=== PATIENT | male | born 1955 | race Caucasian/White ===

== ENCOUNTER 2017-11-26 09:57 | Emergency (ER) | payer OTHER ==
--- OUTSIDE RECORDS SUMMARY | 2017-11-26 10:00 | XMS REPORT ---
:1955 Author Organization [facility] Address [address] [place] [address] Dr. Massey. [address] [place] [id number] Care Team Providers Name Role Phone REBEKAH MADDOX Unavailable Unavailable Problems This patient has no known problems. Allergies, Adverse Reactions, Alerts This patient has no known allergies or adverse reactions. Medications This patient has no known medications. Results Test Description Test Time Test Comments Text Results Atomic Results Result Comments MR, MRA, BRAIN, 2017-05-28 Reason for FINAL REPORT PATIENT ID: WITHOUT CONTRAST 12:18:00 exam:->StrokeWhat is the [id number] MRA Head patient's sedation CLINICAL HISTORY: Stroke requirement?->No Sedation TECHNIQUE: MRA of the head utilizing 3-D gtud-og-foraed technique, with 3-D reconstructions. COMPARISON: None FINDINGS: There is no evidence of intracranial aneurysm, focal stenosis, or major branch vessel occlusion. There are bilateral posterior communicating arteries. IMPRESSION: No evidence for a major modoc of Briones proximal branch vessel occlusion. MRA Neck CLINICAL HISTORY: Stroke TECHNIQUE: MRA of the neck utilizing 2-D and 3-D swiw-mq-rkvrfv technique, with 3-D reconstructions. COMPARISON: None FINDINGS: The carotid arteries in the neck are patent including their bifurcations. There is antegrade flow in the vertebral arteries in the neck. IMPRESSION: No evidence of hemodynamically significant stenosis in the cervical carotid or vertebral arteries by NASCET criteria. Signed: America King MDReport Verified Date/Time: 05/28/2017 12:18:08 Reading Location: [facility] Neuro Reading Room , MRA, NECK, 2017-05-28 FINAL REPORT PATIENT ID: WITHOUT IV 12:18:00 [id number] MRA Head CONTRAST CLINICAL HISTORY: Stroke TECHNIQUE: MRA of the head utilizing 3-D ohvx-mf-revfeg technique, with 3-D reconstructions. COMPARISON: None FINDINGS: There is no evidence of intracranial aneurysm, focal stenosis, or major branch vessel occlusion. There are bilateral posterior communicating arteries. IMPRESSION: No evidence for a major modoc of Briones proximal branch vessel occlusion. MRA Neck CLINICAL HISTORY: Stroke TECHNIQUE: MRA of the neck utilizing 2-D and 3-D dqzy-jx-urchfh technique, with 3-D reconstructions. COMPARISON: None FINDINGS: The carotid arteries in the neck are patent including their bifurcations. There is antegrade flow in the vertebral arteries in the neck. IMPRESSION: No evidence of hemodynamically significant stenosis in the cervical carotid or vertebral arteries by NASCET criteria. Signed: America King Verified Date/Time: 05/28/2017 12:18:08 Reading Location: [address] Neuro Reading Room , BRAIN, 2017-05-28 Reason for FINAL REPORT PATIENT ID: WITHOUT CONTRAST 11:48:00 exam:->Strokepost-tpa [id number] MRI Brain scanWhat is the patient's without contrast sedation requirement?->No Clinical History: Stroke Sedation Technique: MRI of the brain utilizing axial T2, FLAIR, GRE, DWI; sagittal and coronal T1-weighted images. Comparisons: CT 05/28/2017 Findings: There is no evidence of acute infarct or hemorrhage. There are a few scattered nonspecific foci of FLAIR signal abnormality in the subcortical and periventricular white matter. There is mild generalized sulcal prominence without hydrocephalus, midline shift, or apparent mass effect. There is a tubular branching structure extending from the left tentorium into the left cerebellum which is incompletely characterized on this noncontrast exam but is suspicious for a developmental venous anomaly. There are no extra-axial fluid collections. The craniocervical junction is preserved. The major intracranial flow-voids appear patent. IMPRESSION: No evidence of acute infarct, hemorrhage, or hydrocephalus. 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 This may be confirmed with gadolinium-enhanced imaging if clinically warranted. Signed: America King Verified Date/Time: 05/28/2017 11:48:29 Reading Location: [address] Neuro Reading Room 2017-05-28 09:59:00 Test Item Value Reference Range Comments RPR SCREEN (BEAKER) (test fzni=210) Nonreactive Nonreactive CT, BRAIN, WITHOUT [id number] 07:58:00FINAL REPORT CT Head without contrast CLINICAL HISTORY: Stroke TECHNIQUE: Contiguous axial images through the head without contrast. This exam was performed according to the departmental dose optimization program which includes automated exposure control, adjustment of the mA and/or kV according to the patient size, and/or use of an iterative reconstruction technique. COMPARISON: None FINDINGS: There is no CT evidence of acute infarct or intracranial hemorrhage. There is mild periventricular and subcortical white matter hypodensity which is nonspecific but compatible with chronic microvascular ischemic change. There are atherosclerotic calcifications of the intracranial circulation. There is mild generalized parenchymal volume loss without hydrocephalus, midline shift, or apparent mass effect. There are no extra-axial fluid collections. The skull is intact. The visualized paranasal sinuses are well-aerated. IMPRESSION: No CT evidence of acute infarct, hemorrhage, or hydrocephalus. Signed: America King MDReport Verified Date/Time : 05/28/2017 07:58:27 Reading Location: [address] Neuro Reading Room [id number] 05:58:00 Test Item Value Reference Range Comments PHOSPHORUS (BEAKER) (test htll=593) 3.0 mg/dL 2.3-4.7 [id number] 05:58:00 Test Item Value Reference Range Comments MAGNESIUM (BEAKER) (test jcoe=889) 2.1 mg/dL 1.6-2.6 FastingBASIC METABOLIC [id number] 05:58:00 Test Item Value Reference Range Comments SODIUM (BEAKER) (test 141 meq/L 136-145 owru=075) POTASSIUM (BEAKER) (test 4.0 meq/L 3.5-5.1 lpby=494) CHLORIDE (BEAKER) (test 108 meq/L 98-107 mprw=322) CO2 (BEAKER) (test 24 meq/L 22-29 xorh=613) BLOOD UREA NITROGEN 17 mg/dL 7-21 (BEAKER) (test fweq=048) CREATININE (BEAKER) (test 0.92 mg/dL 0.57-1.25 uzie=907) GLUCOSE RANDOM (BEAKER) 128 mg/dL 70-105 (test goal=557) CALCIUM (BEAKER) (test 9.6 mg/dL 8.4-10.2 kgtt=142) EGFR (BEAKER) (test 84 mL/min/1.73 sq m ESTIMATED GFR IS NOT jdsl=5040) ACCURATE CREATININE CLEARANCE IN PREDICTING GLOMERULAR FILTRATION RATE. ESTIMATED GFR IS NOT APPLICABLE FOR DIALYSIS PATIENTS. FastingLIPID [id number] 05:58:00 Test Item Value Reference Range Comments TRIGLYCERIDES (BEAKER) (test szck=930) 88 mg/dL CHOLESTEROL (BEAKER) (test vdhj=334) 169 mg/dL HDL CHOLESTEROL (BEAKER) (test zhhh=191) 37 mg/dL LDL CHOLESTEROL CALCULATED (BEAKER) (test 114 mg/dL lwko=264) Triglyceride Reference Range: Low Risk <150 Borderline 150- 199 High Risk 200-499 Very High Risk >=500Cholesterol Reference Range: Low Risk <200 Borderline 200-239 High Risk > 240HDL Cholesterol Reference Range: Low Risk >=60 High Risk <40LDL Cholesterol Reference Range: Optimal <100 Near Optimal 100-129 Borderline 130-159 High 160-189 Very High >=190 FastingCBC W/PLT COUNT & AUTO [id number] 05:32:00 Test Item Value Reference Range Comments WHITE BLOOD CELL COUNT (BEAKER) (test emmt=360) 6.3 K/ L 3.5-10.5 RED BLOOD CELL COUNT (BEAKER) (test wowq=461) 4.70 M/ L 4.63-6.08 HEMOGLOBIN (BEAKER) (test ndle=542) 14.9 GM/DL 13.7-17.5 HEMATOCRIT (BEAKER) (test cwnm=612) 43.0 % 40.1-51.0 MEAN CORPUSCULAR VOLUME (BEAKER) (test lmnp=486) 91.5 fL 79.0-92.2 MEAN CORPUSCULAR HEMOGLOBIN (BEAKER) (test 31.7 pg 25.7-32.2 ywhu=671) MEAN CORPUSCULAR HEMOGLOBIN CONC (BEAKER) (test 34.7 GM/DL 32.3-36.5 mwft=518) RED CELL DISTRIBUTION WIDTH (BEAKER) (test 12.2 % 11.6-14.4 ujfk=115) PLATELET COUNT (BEAKER) (test pizg=078) 182 K/CU MM 150-450 MEAN PLATELET VOLUME (BEAKER) (test wodm=624) 9.8 fL 9.4-12.4 NUCLEATED RED BLOOD CELLS (BEAKER) (test 0 /100 WBC 0-0 hxog=060) NEUTROPHILS RELATIVE PERCENT (BEAKER) (test 71 % nbrz=186) LYMPHOCYTES RELATIVE PERCENT (BEAKER) (test 15 % rtfr=328) MONOCYTES RELATIVE PERCENT (BEAKER) (test 10 % fwlz=134) EOSINOPHILS RELATIVE PERCENT (BEAKER) (test 3 % btfg=528) BASOPHILS RELATIVE PERCENT (BEAKER) (test 1 % klrm=868) NEUTROPHILS ABSOLUTE COUNT (BEAKER) (test 4.50 K/ L 1.78-5.38 umrw=982) LYMPHOCYTES ABSOLUTE COUNT (BEAKER) (test 0.92 K/ L 1.32-3.57 yzar=929) MONOCYTES ABSOLUTE COUNT (BEAKER) (test 0.63 K/ L 0.30-0.82 pgwy=839) EOSINOPHILS ABSOLUTE COUNT (BEAKER) (test 0.18 K/ L 0.04-0.54 qstg=646) BASOPHILS ABSOLUTE COUNT (BEAKER) (test 0.04 K/ L 0.01-0.08 euov=614) IMMATURE GRANULOCYTES-RELATIVE PERCENT (BEAKER) 1 % 0-1 (test nham=8743) HEMOGLOBIN [id number] 13:39:00 Test Item Value Reference Range Comments HEMOGLOBIN A1C (BEAKER) (test xlaq=133) 5.4 % 4.3-6.1 TSH/FREE T4 IF [id number] 09:59:00 Test Item Value Reference Range Comments THYROID STIMULATING HORMONE (BEAKER) (test 0.97 uIU/mL 0.35-4.94 ygmq=053) VITAMIN B12 AND [id number] 09:59:00 Test Item Value Reference Range Comments VITAMIN B12 (BEAKER) (test vszp=416) 516 pg/mL 213-816 FOLATE (BEAKER) (test jcgq=853) 15.4 ng/mL >=7.0 TROPONIN [id number] 09:34:00 Test Item Value Reference Range Comments TROPONIN I (BEAKER) (test sllj=047) 0.01 ng/mL 0.00-0.03 Troponin I (TnI) levels must be interpreted in the context of the presenting symptoms and the clinical findings. Elevated TnI levels indicate myocardial damage, but are not specific for ischemic heart disease. Elevated TnI levels are seen in patients with other cardiac conditions (including myocarditis and congestive heart failure), and slight TnI elevations occur in patients with other conditions, including sepsis, renal failure, acidosis, acute neurological disease, and persistent tachyarrhythmia.BASIC METABOLIC [id number] 09:29:00 Test Item Value Reference Range Comments SODIUM (BEAKER) (test 140 meq/L 136-145 jvay=152) POTASSIUM (BEAKER) (test 4.2 meq/L 3.5-5.1 Specimen slightly mspd=268) hemolyzed CHLORIDE (BEAKER) (test 110 meq/L 98-107 uqtb=352) CO2 (BEAKER) (test 24 meq/L 22-29 ltpo=471) BLOOD UREA NITROGEN 18 mg/dL 7-21 (BEAKER) (test tict=285) CREATININE (BEAKER) (test 0.79 mg/dL 0.57-1.25 Specimen slightly oart=601) hemolyzed GLUCOSE RANDOM (BEAKER) 118 mg/dL 70-105 (test wtyv=619) CALCIUM (BEAKER) (test 8.8 mg/dL 8.4-10.2 hhik=583) EGFR (BEAKER) (test 100 mL/min/1.73 sq m ESTIMATED GFR IS NOT eqch=0345) ACCURATE CREATININE CLEARANCE IN PREDICTING GLOMERULAR FILTRATION RATE. ESTIMATED GFR IS NOT APPLICABLE FOR DIALYSIS PATIENTS. LIPID [id number] 09:29:00 Test Item Value Reference Range Comments TRIGLYCERIDES (BEAKER) (test 63 mg/dL Specimen slightly hemolyzed udwx=526) CHOLESTEROL (BEAKER) (test 151 mg/dL Specimen slightly hemolyzed jzjk=273) HDL CHOLESTEROL (BEAKER) (test 34 mg/dL rser=007) LDL CHOLESTEROL CALCULATED 104 mg/dL (BEAKER) (test umly=296) Triglyceride Reference Range: Low Risk <150 Borderline 150- 199 High Risk 200-499 Very High Risk >=500Cholesterol Reference Range: Low Risk <200 Borderline 200-239 High Risk > 240HDL Cholesterol Reference Range: Low Risk >=60 High Risk <40LDL Cholesterol Reference Range: Optimal <100 Near Optimal 100-129 Borderline 130-159 High 160-189 Very High >=190HEPATIC FUNCTION [id number] 09:29:00 Test Item Value Reference Range Comments TOTAL PROTEIN (BEAKER) (test 6.4 gm/dL 6.0-8.3 Specimen slightly hemolyzed kxrb=263) ALBUMIN (BEAKER) (test 4.0 g/dL 3.5-5.0 Specimen slightly hemolyzed ortn=9324) BILIRUBIN TOTAL (BEAKER) (test 0.5 mg/dL 0.2-1.2 Specimen slightly hemolyzed xoai=917) BILIRUBIN DIRECT (BEAKER) (test 0.2 mg/dL 0.1-0.5 Specimen slightly hemolyzed tkfh=454) ALKALINE PHOSPHATASE (BEAKER) 48 U/L 40-150 (test ioro=428) AST (SGOT) (BEAKER) (test 27 U/L 5-34 Specimen slightly hemolyzed ogxb=638) ALT (SGPT) (BEAKER) (test 20 U/L 6-55 Specimen slightly hemolyzed jazi=301) CBC W/PLT COUNT & AUTO [id number] 09:05:00 Test Item Value Reference Range Comments WHITE BLOOD CELL COUNT (BEAKER) (test gcua=741) 4.2 K/ L 3.5-10.5 RED BLOOD CELL COUNT (BEAKER) (test cjkc=033) 4.44 M/ L 4.63-6.08 HEMOGLOBIN (BEAKER) (test klob=270) 13.9 GM/DL 13.7-17.5 HEMATOCRIT (BEAKER) (test yxbu=674) 41.1 % 40.1-51.0 MEAN CORPUSCULAR VOLUME (BEAKER) (test qthb=570) 92.6 fL 79.0-92.2 MEAN CORPUSCULAR HEMOGLOBIN (BEAKER) (test 31.3 pg 25.7-32.2 tdze=232) MEAN CORPUSCULAR HEMOGLOBIN CONC (BEAKER) (test 33.8 GM/DL 32.3-36.5 getd=281) RED CELL DISTRIBUTION WIDTH (BEAKER) (test 12.0 % 11.6-14.4 sfob=992) PLATELET COUNT (BEAKER) (test zkgf=997) 168 K/CU MM 150-450 MEAN PLATELET VOLUME (BEAKER) (test afue=519) 10.0 fL 9.4-12.4 NUCLEATED RED BLOOD CELLS (BEAKER) (test 0 /100 WBC 0-0 omke=014) NEUTROPHILS RELATIVE PERCENT (BEAKER) (test 71 % tyqu=047) LYMPHOCYTES RELATIVE PERCENT (BEAKER) (test 17 % pvbw=474) MONOCYTES RELATIVE PERCENT (BEAKER) (test 9 % sxqo=286) EOSINOPHILS RELATIVE PERCENT (BEAKER) (test 2 % bzxx=676) BASOPHILS RELATIVE PERCENT (BEAKER) (test 1 % mjxu=168) NEUTROPHILS ABSOLUTE COUNT (BEAKER) (test 3.01 K/ L 1.78-5.38 yzsl=089) LYMPHOCYTES ABSOLUTE COUNT (BEAKER) (test 0.72 K/ L 1.32-3.57 lfhg=053) MONOCYTES ABSOLUTE COUNT (BEAKER) (test 0.40 K/ L 0.30-0.82 rwxd=320) EOSINOPHILS ABSOLUTE COUNT (BEAKER) (test 0.07 K/ L 0.04-0.54 zchm=906) BASOPHILS ABSOLUTE COUNT (BEAKER) (test 0.03 K/ L 0.01-0.08 mavc=808) IMMATURE GRANULOCYTES-RELATIVE PERCENT (BEAKER) 0 % 0-1 (test jqry=8131)
--- OUTSIDE RECORDS SUMMARY | 2017-11-26 10:00 | XMS REPORT | Clinical Summary ---
:[address] [facility] Address [address] [place] [address] Phone Care Team Providers Name Role Phone Unavailable Primary Care Provider Unavailable Allergies Active Allergy Reactions Severity Noted Date Comments Lisinopril Other (See Comments) 05/27/2017 Current Medications Prescription Sig. Disp. Refills Start Date End Date Status metoprolol (TOPROL-XL) Take 100 mg by Active 100 MG 24 hr tablet mouth daily. valsartan (DIOVAN) 160 Take 80 mg by Active MG tablet mouth daily . fenofibric acid, Take 135 mg by Active choline, 135 mg capsule mouth daily. cholecalciferol, Take by mouth. Active vitamin D3, 2,000 unit Cap aspirin 81 MG chewable Take 1 tablet (81 90 tablet 1 05/29/2017 Active tablet mg total) by mouth daily. atorvastatin (LIPITOR) Take 1 tablet (40 90 tablet 1 05/28/2017 Active 40 MG tablet mg total) by mouth nightly. Active Problems Problem Noted Date Acute ischemic stroke (HCC) 05/27/2017 Stroke (HCC) 05/27/2017 Encounters Date Type Specialty Care Team Description 05/27/2017 - Hospital Encounter Intensive Care [facility] Andres Cerebrovascular 05/28/2017 MD Gumaro accident (CVA), unspecified mechanism (HCC) 05/27/2017 Emergency Emergency Medicine Hamilton Andres MD after 11/25/2016 Social History Tobacco Use Types Packs/Day Years Used Date Never Smoker Alcohol Use Drinks/Week oz/Week Comments No Sex Assigned at Date Recorded Not on file Last Filed Vital Signs Vital Sign Reading Time Taken Blood Pressure 148/76 05/28/2017 11:00 AM CDT Pulse 65 05/28/2017 11:00 AM CDT Temperature 36.7 C (98 F) 05/28/2017 11:00 AM CDT Respiratory Rate 18 05/28/2017 11:00 AM CDT Oxygen Saturation 97% 05/28/2017 11:00 AM CDT Inhaled Oxygen Concentration - - Weight 115.4 kg (254 lb 6.6 oz) 05/27/2017 7:15 AM CDT Height 198.1 cm (6' 6") 05/27/2017 7:15 AM CDT Body Mass Index 29.4 05/27/2017 7:15 AM CDT Plan of Treatment Not on file Results TRANSFUSION SERVICE REPORT - SCAN (05/28/2017 5:43 PM)MR brain without IV contrast (05/28/2017 12:09 PM) Specimen Performing Laboratory [facility] Narrative FINAL REPORT MRI Brain without contrast Clinical History: Stroke Technique: MRI of the brain utilizing axial [...] imaging if clinically warranted. Signed: America King MD Report Verified Date/Time:05/28/2017 11:48:29 Reading Location: [facility] C013V Neuro Reading Room Procedure Note Interface, External Ris In - 05/28/2017 12:09 PM CDT FINAL REPORT MRI Brain without contrast Clinical History: Stroke Technique: MRI of the brain utilizing axial [...] imaging if clinically warranted. Signed: America King MD Report Verified Date/Time: 05/28/2017 11:48:29 Reading Location: [address] Neuro Reading Room MRA neck without contrast (05/28/2017 12:09 PM) Specimen Performing Laboratory [facility] Narrative FINAL REPORT MRA Head CLINICAL HISTORY: Stroke TECHNIQUE: MRA of the head utilizing 3-D dyle-wh-fsusxp technique, with 3-D reconstructions. COMPARISON: None FINDINGS: There is no evidence of intracranial aneurysm, focal stenosis, or major branch vessel occlusion. There are bilateral posterior communicating arteries. IMPRESSION: No evidence for a major ute of Briones proximal branch vessel occlusion. MRA Neck CLINICAL HISTORY: Stroke TECHNIQUE: MRA of the neck utilizing 2-D and 3-D ddcn-gq-hbchmb technique, with 3-D reconstructions. COMPARISON: None FINDINGS: The carotid arteries in the neck are patent including their bifurcations. There is antegrade flow in the vertebral arteries in the neck. IMPRESSION: No evidence of hemodynamically significant stenosis in the cervical carotid or vertebral arteries by NASCET criteria. Signed: America King MD Report Verified Date/Time:05/28/2017 12:18:08 Reading Location: [address] Neuro Reading Room Procedure Note Interface, External Ris In - 05/28/2017 12:20 PM CDT FINAL REPORT MRA Head CLINICAL HISTORY: Stroke TECHNIQUE: MRA of the head utilizing 3-D vgsf-ew-ssgytl technique, with 3-D reconstructions. COMPARISON: None FINDINGS: There is no evidence of intracranial aneurysm, focal stenosis, or major branch vessel occlusion. There are bilateral posterior communicating arteries. IMPRESSION: No evidence for a major ute of Briones proximal branch vessel occlusion. MRA Neck CLINICAL HISTORY: Stroke TECHNIQUE: MRA of the neck utilizing 2-D and 3-D qnpl-zo-vytldo technique, with 3-D reconstructions. COMPARISON: None FINDINGS: The carotid arteries in the neck are patent including their bifurcations. There is antegrade flow in the vertebral arteries in the neck. IMPRESSION: No evidence of hemodynamically significant stenosis in the cervical carotid or vertebral arteries by NASCET criteria. Signed: America King MD Report Verified Date/Time: 05/28/2017 12:18:08 Reading Location: [facility] C013 Neuro Reading Room MRA head without contrast (05/28/2017 12:09 PM) Specimen Performing Laboratory [facility] Narrative FINAL REPORT MRA Head CLINICAL HISTORY: Stroke TECHNIQUE: MRA of the head utilizing 3-D hqnc-ov-dqreee technique, with 3-D reconstructions. COMPARISON: None FINDINGS: There is no evidence of intracranial aneurysm, focal stenosis, or major branch vessel occlusion. There are bilateral posterior communicating arteries. IMPRESSION: No evidence for a major ute of Briones proximal branch vessel occlusion. MRA Neck CLINICAL HISTORY: Stroke TECHNIQUE: MRA of the neck utilizing 2-D and 3-D mowj-yt-cgtckn technique, with 3-D reconstructions. COMPARISON: None FINDINGS: The carotid arteries in the neck are patent including their bifurcations. There is antegrade flow in the vertebral arteries in the neck. IMPRESSION: No evidence of hemodynamically significant stenosis in the cervical carotid or vertebral arteries by NASCET criteria. Signed: America King MD Report Verified Date/Time:05/28/2017 12:18:08 Reading Location: [facility] B1 C013V Neuro Reading Room Procedure Note Interface, External Ris In - 05/28/2017 12:20 PM CDT FINAL REPORT MRA Head CLINICAL HISTORY: Stroke TECHNIQUE: MRA of the head utilizing 3-D xfba-dy-ofwshh technique, with 3-D reconstructions. COMPARISON: None FINDINGS: There is no evidence of intracranial aneurysm, focal stenosis, or major branch vessel occlusion. There are bilateral posterior communicating arteries. IMPRESSION: No evidence for a major ute of Briones proximal branch vessel occlusion. MRA Neck CLINICAL HISTORY: Stroke TECHNIQUE: MRA of the neck utilizing 2-D and 3-D fyrg-wo-epxaal technique, with 3-D reconstructions. COMPARISON: None FINDINGS: The carotid arteries in the neck are patent including their bifurcations. There is antegrade flow in the vertebral arteries in the neck. IMPRESSION: No evidence of hemodynamically significant stenosis in the cervical carotid or vertebral arteries by NASCET criteria. Signed: America King MD Report Verified Date/Time: 05/28/2017 12:18:08 Reading Location: [address] Neuro Reading Room CARDIOGRAM REPORT - SCAN (05/28/2017 11:20 AM)CT brain without IV contrast ( 05/28/2017 7:44 AM) Specimen Performing Laboratory [facility] Narrative FINAL REPORT CT Head without contrast CLINICAL HISTORY: [...] infarct, hemorrhage, or hydrocephalus. Signed: America King MD Report Verified Date/Time:05/28/2017 07:58:27 Reading Location: [address] Neuro Reading Room Procedure Note Interface, External Ris In - 05/28/2017 8:00 AM CDT FINAL REPORT CT Head without contrast CLINICAL HISTORY: [...] infarct, hemorrhage, or hydrocephalus. Signed: America King MD Report Verified Date/Time: 05/28/2017 07:58:27 Reading Location: [facility] C013V Neuro Reading Room with platelet count + automated diff (05/28/2017 5:12 AM)Only the most recent of2 resultswithin the time period is included. Component Value Ref Range WBC 6.3 3.5 - 10.5 K/L RBC 4.70 4.63 - 6.08 M/L Hemoglobin 14.9 13.7 - 17.5 GM/DL Hematocrit 43.0 40.1 - 51.0 % MCV 91.5 79.0 - 92.2 fL MCH 31.7 25.7 - 32.2 pg MCHC 34.7 32.3 - 36.5 GM/DL RDW 12.2 11.6 - 14.4 % Platelets 182 150 - 450 K/CU MM MPV 9.8 9.4 - 12.4 fL nRBC 0 0 - 0 /100 WBC % Neutros 71 % % Lymphs 15 % % Monos 10 % % Eos 3 % % Baso 1 % # Neutros 4.50 1.78 - 5.38 K/L # Lymphs 0.92 (L) 1.32 - 3.57 K/L # Monos 0.63 0.30 - 0.82 K/L # Eos 0.18 0.04 - 0.54 K/L # Baso 0.04 0.01 - 0.08 K/L Immature Granulocytes-Relative 1 0 - 1 % Specimen Performing Laboratory Blood [address] [address] CBC with platelet count + automated diff (05/28/2017 5:12 AM)Only the most recent of2 resultswithin the time period is included. Specimen Performing Laboratory Blood Narrative The following orders were created for panel order CBC with platelet count + automated diff. Procedure Abnormality Status --------- ------ CBC with platelet count ...[[id number]]AbnormalFinal result Please view results for these tests on the individual orders. Phosphorus (05/28/2017 5:12 AM) Component Value Ref Range Phosphorus 3.0 2.3 - 4.7 mg/dL Specimen Performing Laboratory Blood [address] [address] Narrative Fasting Magnesium (05/28/2017 5:12 AM) Component Value Ref Range Magnesium 2.1 1.6 - 2.6 mg/dL Specimen Performing Laboratory Blood [address] [address] Narrative Fasting Fasting lipid panel (05/28/2017 5:12 AM)Only the most recent of2 resultswithin the time period is included. Component Value Ref Range Triglycerides 88 mg/dL Cholesterol 169 mg/dL HDL 37 mg/dL LDL Calculated 114 mg/dL Specimen Performing Laboratory [address] [address] Narrative Triglyceride Reference Range: Low Risk <150 [id number] High Risk 200-499 Very High Risk>=500 Cholesterol Reference Range: Low Risk <200 [id number] High Risk>240 HDL Cholesterol Reference Range: Low Risk >=60 High Risk <40 LDL Cholesterol Reference Range: Optimal<100 Near [id number] [id number] Ftyh011-527 Very High >=190 Fasting Basic Metabolic Panel (05/28/2017 5:12 AM)Only the most recent of2 resultswithin the time period is included. Component Value Ref Range Sodium 141 136 - 145 meq/L Potassium 4.0 3.5 - 5.1 meq/L Chloride 108 (H) 98 - 107 meq/L CO2 24 22 - 29 meq/L BUN 17 7 - 21 mg/dL Creatinine 0.92 0.57 - 1.25 mg/dL Glucose 128 (H) 70 - 105 mg/dL Calcium 9.6 8.4 - 10.2 mg/dL EGFR 84Comment: ESTIMATED GFR IS NOT ACCURATE mL/min/1.73 sq m CREATININE CLEARANCE IN PREDICTING GLOMERULAR FILTRATION RATE. ESTIMATED GFR IS NOT APPLICABLE FOR DIALYSIS PATIENTS. Specimen Performing Laboratory Blood [facility] [address] [address] Narrative Fasting 2D Echo W/Doppler(CW/PW/Color) with saline (05/27/2017 1:59 PM) Component Value Ref Range Ejection Fraction Specimen Performing Laboratory [facility] ECHO HEARTLAB MKCKESSON CPACS Narrative Transthoracic Echocardiography Report (TTE) Demographics Patient Name Ihsan SMITH of Study 05/27/2017 SHIRA [id number] GenderMale Visit Number [id number] Race Unknown [id number] Number [id number] Number Date of Birth1955 Referring Physician Mckenna Naik Age62 year(s) Pulmonary Fellow Cecilia Borden AnalystAlex ZadeInterpreting Brooks Soriano, Physician Procedure Type of Study TTE procedure:2DECHO W DOPPLER(CW/PW/COLOR) (Routine) Indications:Suspected cardiac source of emboli. Clinical History HTN STROKE HGB 13.9 HCT 41.1 % Height: 78 inches Weight: 115.21 kg (254 lbs) BSA: 2.5 m^2 BMI: 29.35 kg/m^2 HR: 55 bpm BP: 126/64 mmHg Summary Essentially normal exam. The left ventricle is chamber size (by vol index) is normal (male - LVED vol - 34-74ml/m2). Mild concentric LV hypertrophy. All of the LV segments contract normally . Global LV systolic function normal . Estimated LVEF by qualitative assessment is normal (55-60%) . Grade 1 diastolic dysfunction (impaired relaxation and low-normal LA pressure). Aortic root size (SInus of Valsalva diameter) is normal . The estimated RA pressure by IVC dynamics 0-5mmHg . A trace of tricuspid regurgitation. Unable to estimate peak systolic PA pressure; inadequate TR velocity signal. IV saline contrast injection was negative for a PFO (patent foramen ovale) at rest and post Valsalva . Previous Study No prior exam available for comparison. Signature Findings Left Ventricle The left ventricle is chamber size (by vol index) is normal (male - LVED vol - 34-74ml/m2). Mild concentric LV hypertrophy. All of the LV segments contract normally . Global LV systolic function normal . Estimated LVEF by qualitative assessment is normal (55-60%) . Grade 1 diastolic dysfunction (impaired relaxation and low- normal LA pressure). Left AtriumLA size is mildly enlarged . Right VentricleNormal right ventricle structure and function. Right Atrium Normal right atrium. Atrial SeptumIV saline contrast injection was negative for a PFO (patent foramen ovale) at rest and post Valsalva . Aortic Valve Mild AoV cusp thickening. Mild aortic regurgitation. Mitral Valve Mild mitral annular calcification. Tricuspid ValveA trace of tricuspid regurgitation. Unable to estimate peak systolic PA pressure; inadequate TR velocity signal. Pulmonic Valve Normal PV structure and function by limited views and Doppler. AortaAortic root size (SInus of Valsalva diameter) is normal . PericardiumNo evidence of pericardial effusion. IVC/SVC/PA/PV/PleuralThe estimated RA pressure by IVC dynamics 0-5mmHg . Chambers/Structures Left Atrium LA Dimension: 4.25 cmLA Area: 26.64 cm^2 LA Volume: 90.44 ml LA Vol. Index: 36 ml/m^2 Left Ventricle LVIDd: 4.92 cm LV Septum Diastolic: 1.29 cm LV PW Diastolic: 1.24 cm LVEDV Torres's:158.56 ml LVESV Torres's:66.25 ml LVEF Torres's: 58.2 %LVEDVI: 63 ml/m^2 LVESVI: 26 ml/m^2 LVOT Diameter: 2.07 cm Aorta Ao Root S of Deonna.: 3.78 cm Doppler/Quantitative Measurements LVOT Peak Velocity: 1.41 m/s Peak Gradient: 7.99 mmHg Mean Velocity: 0.76 m/s Mean Gradient: 2.92 mmHg LVOT Diameter: 2.07 cmLVOT VTI: 25.18 cm LVOT Area: 3.37 cm^2LVOT SV:84.7 ml LVOT CO: 4.66 l/min LVOT CI: 1.86 l/min/m^2 Procedure Note Interface, External Ris In - 05/28/2017 10:41 AM CDT Transthoracic Echocardiography Report (TTE) Demographics Patient Name RUSSELL SMITH Date of Study 05/27/2017 SHIRA Gender Male Visit Number [id number] Race Unknown Room Number [id number] Number Date of 1955 Referring Physician Mckenna Naik Age 62 year(s) Pulmonary Fellow Cecilia Borden Brick Handler Levi Jiménez Interpreting Brooks Soriano Physician Procedure Type of Study TTE procedure:2DECHO W DOPPLER(CW/PW/COLOR) (Routine) Indications:Suspected cardiac source of emboli. Clinical History HTN STROKE HGB 13.9 HCT 41.1 % Height: 78 inches Weight: 115.21 kg (254 lbs) BSA: 2.5 m^2 BMI: 29.35 kg/m^2 HR: 55 bpm BP: 126/64 mmHg Summary Essentially normal exam. The left ventricle is chamber size (by vol index) is normal (male - LVED vol - 34-74ml/m2). Mild concentric LV hypertrophy. All of the LV segments contract normally . Global LV systolic function normal . Estimated LVEF by qualitative assessment is normal (55-60%) . Grade 1 diastolic dysfunction (impaired relaxation and low-normal LA pressure). Aortic root size (SInus of Valsalva diameter) is normal . The estimated RA pressure by IVC dynamics 0-5mmHg . A trace of tricuspid regurgitation. Unable to estimate peak systolic PA pressure; inadequate TR velocity signal. IV saline contrast injection was negative for a PFO (patent foramen ovale) at rest and post Valsalva . Previous Study No prior exam available for comparison. Signature Findings Left Ventricle The left ventricle is chamber size (by vol index) is normal (male - LVED vol - 34-74ml/m2). Mild concentric LV hypertrophy. All of the LV segments contract normally . Global LV systolic function normal . Estimated LVEF by qualitative assessment is normal (55-60%) . Grade 1 diastolic dysfunction (impaired relaxation and low-normal LA pressure). Left Atrium LA size is mildly enlarged . Right Ventricle Normal right ventricle structure and function. Right Atrium Normal right atrium. Atrial Septum IV saline contrast injection was negative for a PFO (patent foramen ovale) at rest and post Valsalva . Aortic Valve Mild AoV cusp thickening. Mild aortic regurgitation. Mitral Valve Mild mitral annular calcification. Tricuspid Valve A trace of tricuspid regurgitation. Unable to estimate peak systolic PA pressure; inadequate TR velocity signal. Pulmonic Valve Normal PV structure and function by limited views and Doppler. Aorta Aortic root size (SInus of Valsalva diameter) is normal . Pericardium No evidence of pericardial effusion. IVC/SVC/PA/PV/Pleural The estimated RA pressure by IVC dynamics 0-5mmHg . Chambers/Structures Left Atrium LA Dimension: 4.25 cm LA Area: 26.64 cm^2 LA Volume: 90.44 ml LA Vol. Index: 36 ml/m^2 Left Ventricle LVIDd: 4.92 cm LV Septum Diastolic: 1.29 cm LV PW Diastolic: 1.24 cm LVEDV Torres's:158.56 ml LVESV Torres's:66.25 ml LVEF Torres's: 58.2 % LVEDVI: 63 ml/m^2 LVESVI: 26 ml/m^2 LVOT Diameter: 2.07 cm Aorta Ao Root S of Deonna.: 3.78 cm Doppler/Quantitative Measurements LVOT Peak Velocity: 1.41 m/s Peak Gradient: 7.99 mmHg Mean Velocity: 0.76 m/s Mean Gradient: 2.92 mmHg LVOT Diameter: 2.07 cm LVOT VTI: 25.18 cm LVOT Area: 3.37 cm^2 LVOT SV:84.7 ml LVOT CO: 4.66 l/min LVOT CI: 1.86 l/min/m^2 Type and screen, automated (05/27/2017 8:53 AM) Component Value Ref Range ABO/RH AUTOMATED ([place]) B POSITIVE Ab Scrn NEGATIVE Specimen Performing Laboratory Blood [address] [address] Vitamin B12 and Folate (05/27/2017 8:53 AM) Component Value Ref Range Vitamin B12 516 213 - 816 pg/mL Folate 15.4 >=7.0 ng/mL Specimen Performing Laboratory [address] [address] TSH/Free T4 If Indicated (05/27/2017 8:53 AM) Component Value Ref Range TSH 0.97 0.35 - 4.94 uIU/mL Specimen Performing Laboratory [address] [address] Troponin I (05/27/2017 8:53 AM) Component Value Ref Range Troponin I 0.01 0.00 - 0.03 ng/mL Specimen Performing Laboratory [address] [address] Narrative Troponin I (TnI) levels must be interpreted [...] failure, acidosis, acute neurological disease, and persistent tachyarrhythmia. RPR (05/27/2017 8:53 AM) Component Value Ref Range RPR Nonreactive Nonreactive Specimen Performing Laboratory [address] [address] Hemoglobin A1c (05/27/2017 8:53 AM) Component Value Ref Range Hemoglobin A1C 5.4 4.3 - 6.1 % Specimen Performing Laboratory Blood [address] [address] Hepatic function panel (05/27/2017 8:53 AM) Component Value Ref Range Protein, Total 6.4Comment: Specimen slightly hemolyzed 6.0 - 8.3 gm/dL Albumin 4.0Comment: Specimen slightly hemolyzed 3.5 - 5.0 g/dL Total Bilirubin 0.5Comment: Specimen slightly hemolyzed 0.2 - 1.2 mg/dL Bilirubin, Direct 0.2Comment: Specimen slightly hemolyzed 0.1 - 0.5 mg/dL Alkaline Phosphatase 48 40 - 150 U/L AST 27Comment: Specimen slightly hemolyzed 5 - 34 U/L ALT 20Comment: Specimen slightly hemolyzed 6 - 55 U/L Specimen Performing Laboratory Blood [address] [address] after 11/25/2016
[2017-11-26 10:39] LABS: Absolute Monocytes 0.5 K/uL (0.1-1.3); Absolute Neutrophil 3.7 K/uL (1.8-8.0); Basophils % 0.8 % (0-1.3); Eosinophils % 1.8 % (0-4.4); Hematocrit 43.7 % (39.6-49.0); Lymphocytes % 17.9 % (15.3-44.8); MCH 32.1 pg (27.0-35.0); MCV 91.6 fL (80-100); MPV 8.9 fL (7.6-11.3); RBC Red Blood Cell Count 4.77 M/uL (4.33-5.43)
[2017-11-26 10:48] LABS: Protime INR 1.11
[2017-11-26] MEDS ORDERED: THIAMINE 200 MG/2 ML INJ ONE (11:03)
[2017-11-26] MEDS ORDERED: NA CHLORIDE 0.9% 1,000 ML ONE (11:04)
[2017-11-26] MEDS ORDERED: FOLIC ACID 5 MG/ML VIAL ONE (11:04)
[2017-11-26 11:19] LABS: ALT/SGPT 31 U/L (12-78); AST/SGOT 26 U/L (15-37); Albumin 4.1 g/dL (3.4-5.0); Alkaline Phosphatase 56 U/L (45-117); Bilirubin Direct 0.2 mg/dL (0-0.2); Bilirubin Total 0.6 mg/dL (0.2-1.0); CKMB Creatine Kinase MB 4.8 ng/mL (0.3-3.6); Creatine Phosphokinase 192 U/L (39-308); Magnesium 1.8 mg/dL (1.8-2.4); NT PRO-BNP 91 pg/mL (<125); Potassium 3.9 mmol/L (3.5-5.1); Protein, Total 6.9 g/dL (6.4-8.2); Troponin (Emerg Dept Use Only) < 0.02 ng/mL (0.0-0.045)
--- NOTE | 2017-11-26 11:20 | RAD REPORT ---
EXAM DESCRIPTION: CT - Head Brain Wo Cont - 11/26/2017 11:03 am CLINICAL HISTORY: Left-sided facial and body numbness COMPARISON: CT head May 2017 TECHNIQUE: Axial 5 mm thick images of the head were obtained without IV contrast. All CT scans are performed using dose optimization technique as appropriate and may include automated exposure control or mA/KV adjustment according to patient size. FINDINGS: No intracranial hemorrhage, mass, edema or shift of mid-line structures. No acute infarcti on changes seen. No cortical edema or sulcal effacement. No significant atrophy or chronic ischemic c hange. Ventricles are normal. Intracranial findings are similar to comparison. Mastoid air cells and visualized portions of the paranasal sinuses are clear. No acute bony findings. Asymmetry is created by head tilt. IMPRESSION: No hemorrhage, mass or acute intracranial finding. Intracranial findings are not significantly different from the May 2017 study. Continued, unexplained neurologic findings can be further addressed with MR imaging.
--- NOTE | 2017-11-26 11:43 | RAD REPORT ---
EXAM DESCRIPTION: RAD - Chest Single View - 11/26/2017 11:18 am CLINICAL HISTORY: Chest pain COMPARISON: May 2017 TECHNIQUE: AP portable chest image was obtained 1109 hours . FINDINGS: No acute lung parenchymal finding. No failure, mass, infiltrate or other acute cardiopulmo nary finding. Heart size is normal and stable. No vascular engorgement or hilar abnormality. Trachea is midline. No measurable pleural effusion and no pneumothorax. No gross bony abnormality seen. No [place] aortic findings suspected. IMPRESSION: No acute cardiopulmonary process. Chest findings are similar to comparison.
--- NOTE | 2017-11-26 12:35 | ER ---
Nurse's Notes [facility] Name: Russell Salvador Jr Age: 62 yrs Sex: Male : 1955 Arrival Date: 11/26/2017 Time: 10:01 Bed 20 Private MD: Diagnosis: Paresthesia of skin;Transient cerebral ischemic attack, unspecified;Essential (primary) hypertension Presentation: 11/26 10:02 Presenting complaint: Patient states: Numbness to entire left side of body and face aj that started 1 week ago and has progressed. Patient sent by Dr Rangel. Ambulated through front door with steady gait. No facial droop noted. Transition of care: patient was not received from another setting of care. Onset of symptoms was October 19, 2017. Risk Assessment: Do you want to hurt yourself or someone else? Patient reports no desire to harm self or others. Initial Sepsis Screen: Does the patient meet any 2 criteria? No. Patient's initial sepsis screen is negative. Does the patient have a suspected source of infection? No. Patient's initial sepsis screen is negative. Care prior to arrival: None. 10:02 Method Of Arrival: Ambulatory aj 10:02 Acuity: ANETTE 3 aj 12:09 No acute neurological deficit is noted. Pre-hospital glucose is not applicable to this em patient. Triage Assessment: 10:05 The onset of the patients symptoms was more than six hours ago. General: Appears in no aj apparent distress. comfortable, Behavior is calm, cooperative, appropriate for age. Pain: Denies pain. Neuro: Level of Consciousness is awake, alert, obeys commands, Oriented to person, place, time, situation, Appropriate for age Speech Writer are equal bilaterally Moves all extremities. Full function Gait is steady, Speech is normal, Facial symmetry appears normal, Numbness in left side of forehead, left temporal area, left eye, left pentecostal, left side of the nose, left zygomatic area, left cheek, left mandible, left arm and left leg Reports headache numbness in left side of forehead, left eye, left pentecostal, left side of the nose, left zygomatic area, left cheek, left mandible, left arm and left leg. Respiratory: Airway is patent Respiratory effort is even, unlabored, Respiratory pattern is regular, symmetrical. Derm: Skin is intact, is healthy with good turgor, Skin is pink, warm \T\ dry. normal. Stroke Activation: Symptom onset > 6 hours Physician: Stroke Attending; Name: ; Notified At: ; Arrived At: Physician: Chief Stroke Resident; Name: ; Notified At: ; Arrived At: Physician: Stroke Resident; Name: ; Notified At: ; Arrived At: Physician: ED Attending; Name: ; Notified At: ; Arrived At: Physician: ED Resident; Name: ; Notified At: ; Arrived At: Historical: - Allergies: 10:05 HUBER INHIBITORS; aj - Home Meds: 10:05 Toprol XL 100 mg Oral Tb24 1 tab once daily [Active]; Lipitor 40 mg Oral tab 1 tab once aj daily [Active]; aspirin 81 mg Oral TbEC 2 tabs once daily [Active]; Vitamin D Oral [Active]; Trilipix 135 mg oral cpDR 1 cap once daily [Active]; - PMHx: 10:05 Hypertension; Hyperlipidemia; CVA; aj - PSHx: 10:05 Appendectomy; aj - Immunization history:: Adult Immunizations up to date. - Social history:: Smoking status: Patient/guardian denies using tobacco. - Ebola Screening: : Patient negative for fever greater than or equal to 101.5 degrees Fahrenheit, and additional compatible Ebola Virus Disease symptoms Patient denies exposure to infectious person Patient denies travel to an Ebola-affected area in the 21 days before illness onset No symptoms or risks identified at this time. - Family history:: not pertinent. Screenin:07 Abuse screen: Denies threats or abuse. Nutritional screening: No deficits noted. em Tuberculosis screening: No symptoms or risk factors identified. Fall Risk None identified. Assessment: 10:11 Reassessment: CT notified of CT Head on pt. orders in computer. 11:00 Reassessment: Patient appears in no apparent distress at this time. Patient and/or em family updated on plan of care and expected duration. Pain level reassessed. Patient is alert, oriented x 3, equal unlabored respirations, skin warm/dry/pink. Patient denies pain at this time. 12:01 Reassessment: Patient appears in no apparent distress at this time. Patient and/or em family updated on plan of care and expected duration. Pain level reassessed. Patient is alert, oriented x 3, equal unlabored respirations, skin warm/dry/pink. called report to MARI Carias at [facility], pending transportation Patient denies pain at this time. Patient states symptoms have not improved. 12:04 Patient has been NPO before screening. The patient is alert, and able to follow em commands. The patient does not exhibit slurred or garbled speech. The patient is not exhibiting difficulty speaking. The patient does not exhibit difficulty understanding words. The patient is able to swallow own secretions with no drooling or need for suction. Patient tolerated one teaspoon of water. No drooling, immediate coughing, gurgling, or clearing of the throat was noted. The patient tolerated 90mL of water. No drooling, immediate coughing, gurgling, or clearing of the throat was noted. The patient passed the bedside swallow screening. Oral medications may be given as ordered. Contact Physician for further diet orders. Provider notified of bedside swallow screening results: Brien Castaneda MD. T-PA (Activase) Screening: Contraindications: Other: greater than 1 week. 12:15 Reassessment: Patient appears in no apparent distress at this time. I agree with above iw assessment by Kamaljit Perkins LVN. Vital Signs: 10:05 BP 142 / 85; Pulse 58; Resp 16; Pulse Ox 98% on R/A; Weight 102.06 kg; Height 6 ft. 6 aj in. (198.12 cm); 11:00 BP 127 / 69; Pulse 48; Resp 15; Pulse Ox 100% on R/A; Pain 0/10; em 12:03 BP 132 / 68; Pulse 50; Resp 16; Pulse Ox 100% on R/A; Pain 0/10; em 10:05 Body Mass Index 26.00 (102.06 kg, 198.12 cm) aj NIH Stroke Scale Scores: 11:08 NIHSS Score: 1 blaine 12:07 NIHSS Score: 1 em ED Course: 10:01 Patient arrived in ED. aj 10:04 Triage completed. aj 10:05 Arm band placed on left wrist. Patient placed in an exam room. EKG completed in triage. aj Results shown to . 10:08 Brien Castaneda MD is Attending Physician. blaine 10:09 Sejal Avery, MARI is Primary Nurse. ch 10:11 Inserted saline lock: 20 gauge in right forearm, using aseptic technique. Blood ch collected. 12:07 Patient has correct armband on for positive identification. Call light in reach. em 12:07 No provider procedures requiring assistance completed. Patient transferred, IV remains em in place. Administered Medications: 11:20 Drug: foLIC Acid 1 mg Route: IVPB; Site: right antecubital; iw 12:35 Follow up: Response: No adverse reaction em 11:20 Drug: Thiamine 100 mg Route: IV; Rate: bolus; Site: right antecubital; iw 12:35 Follow up: Response: No adverse reaction em 11:23 Drug: NS 0.9% 1000 ml Route: IV; Rate: 1 bolus; Site: right antecubital; em 12:35 Follow up: IV Status: Completed infusion; IV Intake: 1000ml em Intake: 12:35 IV: 1000ml; Total: 1000ml. em Outcome: 10:53 ER care complete, transfer ordered by . blaine 12:07 Transferred to [facility], [facility], Transfer form completed. X-rays sent w/ em patient. 12:07 Condition: good 12:07 Instructed on the need for transfer, Demonstrated understanding of instructions. 12:39 Patient left the ED. em NIH Stroke Scale - NIH Stroke Score Date: 11/26/2017 Time: 11:08 Total Score = 1 1a. Level of Consciousness (LOC) - 0(Alert) 1b. Level of Consciousness (LOC) (Year \T\ Age) - 0(Both) 1c. LOC Commands (Open \T\ Closes Eyes/Excelsior Machine Operator) - 0(Both) 2. Best Gaze (Lateral Gaze Paresis) - 0(Normal) 3. Visual Field Loss - 0(No visual loss) 4. Facial Palsy - 0(Normal) 5a. Left Arm: Motor (10-second hold) - 0(No drift) 5b. Right Arm: Motor (10-second hold) - 0(No drift) 6a. Left Leg: Motor (5-second hold - always test supine) - 0(No drift) 6b. Right Leg: Motor (5-second hold - always test supine) - 0(No drift) 7. Limb Ataxia (finger/nose \T\ heel/knutson - test with eyes open) - 0(Absent) 8. Sensory Loss (pinprick arms/legs/face) - 1(Mild to moderate loss) 9. Best Language: Aphasia (description/naming/reading) - 0(No aphasia) 10. Dysarthria (speech clarity - read or repeat words) - 0(Normal) 11. Extinction and Inattention (visual/tactile/auditory/spatial/personal) - 0(No abnormality) Initials: blaine NIH Stroke Scale - NIH Stroke Score Date: 11/26/2017 Time: 12:07 Total Score = 1 1a. Level of Consciousness (LOC) - 0(Alert) 1b. Level of Consciousness (LOC) (Year \T\ Age) - 0(Both) 1c. LOC Commands (Open \T\ Closes Eyes/Excelsior Machine Operator) - 0(Both) 2. Best Gaze (Lateral Gaze Paresis) - 0(Normal) 3. Visual Field Loss - 0(No visual loss) 4. Facial Palsy - 0(Normal) 5a. Left Arm: Motor (10-second hold) - 0(No drift) 5b. Right Arm: Motor (10-second hold) - 0(No drift) 6a. Left Leg: Motor (5-second hold - always test supine) - 0(No drift) 6b. Right Leg: Motor (5-second hold - always test supine) - 0(No drift) 7. Limb Ataxia (finger/nose \T\ heel/knutson - test with eyes open) - 0(Absent) 8. Sensory Loss (pinprick arms/legs/face) - 1(Mild to moderate loss) 9. Best Language: Aphasia (description/naming/reading) - 0(No aphasia) 10. Dysarthria (speech clarity - read or repeat words) - 0(Normal) 11. Extinction and Inattention (visual/tactile/auditory/spatial/personal) - 0(No abnormality) Initials: em Signatures: Sejal Avery, RN Courtney Carrington ch, RN RN aj Anderson, Corey, MD MD cha Munoz, Edgar, LOOM FIXER HELPER LOOM FIXER HELPER em Mahi Newsome RN RN iw
--- NOTE | 2017-11-26 12:35 | EDPHYS ---
Physician Documentation [facility] Name: Russell Salvador Jr Age: 62 yrs Sex: Male : 1955 Arrival Date: 11/26/2017 Time: 10:01 Bed 20 Private MD: Brien Liu HPI: 11/26 10:46 This 62 yrs old Male presents to ER via Ambulatory with complaints of blaine Numbness. 10:46 The patient's problem is reported as paresthesias, in right lower extremity, in left blaine upper extremity, in left lower extremity, in left side of face. Onset: The symptoms/episode began/occurred 14 day(s) ago. Duration: The episodes are intermittent. Context: the episode(s) was witnessed, by no one, symptoms became apparent 2 weeks. Historical: - Allergies: 10:05 HUBER INHIBITORS; aj - Home Meds: 10:05 Toprol XL 100 mg Oral Tb24 1 tab once daily [Active]; Lipitor 40 mg Oral tab 1 tab once aj daily [Active]; aspirin 81 mg Oral TbEC 2 tabs once daily [Active]; Vitamin D Oral [Active]; Trilipix 135 mg oral cpDR 1 cap once daily [Active]; - PMHx: 10:05 Hypertension; Hyperlipidemia; CVA; aj - PSHx: 10:05 Appendectomy; aj - Immunization history:: Adult Immunizations up to date. - Social history:: Smoking status: Patient/guardian denies using tobacco. - Ebola Screening: : Patient negative for fever greater than or equal to 101.5 degrees Fahrenheit, and additional compatible Ebola Virus Disease symptoms Patient denies exposure to infectious person Patient denies travel to an Ebola-affected area in the 21 days before illness onset No symptoms or risks identified at this time. - Family history:: not pertinent. ROS: 10:46 Constitutional: Negative for fever, chills, and weight loss, Eyes: Negative for injury, blaine pain, redness, and discharge, ENT: Negative for injury, pain, and discharge, Neck: Negative for injury, pain, and swelling, Cardiovascular: Negative for chest pain, palpitations, and edema, Respiratory: Negative for shortness of breath, cough, wheezing, and pleuritic chest pain, Abdomen/GI: Negative for abdominal pain, nausea, vomiting, diarrhea, and constipation, Back: Negative for injury and pain, : Negative for injury, bleeding, discharge, and swelling, MS/Extremity: Negative for injury and deformity, Skin: Negative for injury, rash, and discoloration, Psych: Negative for depression, anxiety, suicide ideation, homicidal ideation, and hallucinations, Allergy/Immunology: Negative for hives, rash, and allergies, Endocrine: Negative for neck swelling, polydipsia, polyuria, polyphagia, and marked weight changes. 10:46 Neuro: Positive for numbness, of the face, left arm and left leg. Exam: 10:46 Radiologist reports: neg blaine 10:46 Constitutional: This is a well developed, well nourished patient who is awake, alert, and in no acute distress. Head/Face: Normocephalic, atraumatic. Eyes: Pupils equal round and reactive to light, extra-ocular motions intact. Lids and lashes normal. Conjunctiva and sclera are non-icteric and not injected. Cornea within normal limits. Periorbital areas with no swelling, redness, or edema. ENT: Nares patent. No nasal discharge, no septal abnormalities noted. Tympanic membranes are normal and external auditory canals are clear. Oropharynx with no redness, swelling, or masses, exudates, or evidence of obstruction, uvula midline. Mucous membranes moist. Neck: Trachea midline, no thyromegaly or masses palpated, and no cervical lymphadenopathy. Supple, full range of motion without nuchal rigidity, or vertebral point tenderness. No Meningismus. Chest/axilla: Normal chest wall appearance and motion. Nontender with no deformity. No lesions are appreciated. Cardiovascular: Regular rate and rhythm with a normal S1 and S2. No gallops, murmurs, or rubs. Normal PMI, no JVD. No pulse deficits. Respiratory: Lungs have equal breath sounds bilaterally, clear to auscultation and percussion. No rales, rhonchi or wheezes noted. No increased work of breathing, no retractions or nasal flaring. Abdomen/GI: Soft, non-tender, with normal bowel sounds. No distension or tympany. No guarding or rebound. No evidence of tenderness throughout. Back: No spinal tenderness. No costovertebral tenderness. Full range of motion. Male : Normal genitalia with no discharge or lesions. Skin: Warm, dry with normal turgor. Normal color with no rashes, no lesions, and no evidence of cellulitis. MS/ Extremity: Pulses equal, no cyanosis. Neurovascular intact. Full, normal range of motion. Psych: Awake, alert, with orientation to person, place and time. Behavior, mood, and affect are within normal limits. 10:46 Neuro: Orientation: is normal, appropriate for stated age, no acute changes, Mentation: is normal, appropriate for stated age, no acute changes, Memory: is normal, appropriate for stated age, no acute changes, Cranial nerves: grossly normal, is grossly normal based on the patient's age, no acute changes, Cerebellar function: is grossly normal, is grossly normal based on the patient's age, no acute changes, Gait: is unsteady, Deep tendon reflexes are 2+ (normal) in the bilateral brachioradialis, bicep, tricep and patellar and Achilles tendons, seizure activity, is not displayed by the patient. Vital Signs: 10:05 BP 142 / 85; Pulse 58; Resp 16; Pulse Ox 98% on R/A; Weight 102.06 kg; Height 6 ft. 6 aj in. (198.12 cm); 11:00 BP 127 / 69; Pulse 48; Resp 15; Pulse Ox 100% on R/A; Pain 0/10; em 12:03 BP 132 / 68; Pulse 50; Resp 16; Pulse Ox 100% on R/A; Pain 0/10; em 10:05 Body Mass Index 26.00 (102.06 kg, 198.12 cm) NIH Stroke Scale Scores: 11:08 NIHSS Score: 1 blaine 12:07 NIHSS Score: 1 em MDM: 10:08 Patient medically screened. [facility] 10:53 Data reviewed: vital signs, nurses notes, lab test result(s), EKG, radiologic studies, [facility] CT scan, MRI, plain films. 11/26 12:35 Order name: Protime (+INR); Complete Time: 12:36 EDNE 11/26 12:35 Order name: PTT, Activated Partial Thromb; Complete Time: 12:36 EDNE 11/26 10:09 Order name: XRAY Chest (1 view) 11/26 10:09 Order name: CT Head Brain wo Cont 11/26 10:45 Order name: MRI Stroke Protocol [facility] 11/26 12:35 Order name: Liver (Hepatic) Function; Complete Time: 12:36 EDMS 11/26 12:35 Order name: Creatine Phosphokinase; Complete Time: 12:36 EDMS 11/26 12:35 Order name: CKMB Creatine Kinase MB; Complete Time: 12:36 EDMS 11/26 12:35 Order name: Troponin (Emerg Dept Use Only); Complete Time: 12:36 EDMS 11/26 12:35 Order name: NT PRO-BNP; Complete Time: 12:36 EDMS 11/26 12:35 Order name: Magnesium; Complete Time: 12:36 EDMS 11/26 12:35 Order name: CBC with Automated Diff; Complete Time: 12:36 EDMS 11/26 12:35 Order name: Basic Metabolic Panel; Complete Time: 12:36 EDMS 11/26 12:35 Order name: CT; Complete Time: 12:36 EDMS 11/26 12:35 Order name: RAD; Complete Time: 12:36 EDNE 11/26 10:09 Order name: EKG; Complete Time: 13:31 11/26 10:09 Order name: Cardiac monitoring; Complete Time: 10:11 11/26 10:09 Order name: EKG - Nurse/Tech; Complete Time: 10:11 11/26 10:09 Order name: IV Saline Lock; Complete Time: 10:11 11/26 10:09 Order name: Labs collected and sent; Complete Time: 10:11 11/26 10:09 Order name: O2 Per Protocol; Complete Time: 10:11 11/26 10:09 Order name: O2 Sat Monitoring; Complete Time: 10:11 ch Administered Medications: 11:20 Drug: foLIC Acid 1 mg Route: IVPB; Site: right antecubital; iw 12:35 Follow up: Response: No adverse reaction em 11:20 Drug: Thiamine 100 mg Route: IV; Rate: bolus; Site: right antecubital; iw 12:35 Follow up: Response: No adverse reaction em 11:23 Drug: NS 0.9% 1000 ml Route: IV; Rate: 1 bolus; Site: right antecubital; em 12:35 Follow up: IV Status: Completed infusion; IV Intake: 1000ml em Disposition: 11/26/17 10:[address] [facility]. Diagnosis are Paresthesia of skin, Transient cerebral ischemic attack, unspecified, Essential (primary) hypertension. - Reason for transfer: Higher level of care. - Accepting physician is to [facility]. - Condition is Stable. - Problem is new. - Symptoms have improved. NIH Stroke Scale - NIH Stroke Score Date: 11/26/2017 Time: 11:08 Total Score = 1 1a. Level of Consciousness (LOC) - 0(Alert) 1b. Level of Consciousness (LOC) (Year \T\ Age) - 0(Both) 1c. LOC Commands (Open \T\ Closes Eyes/Frog Shaker) - 0(Both) 2. Best Gaze (Lateral Gaze Paresis) - 0(Normal) 3. Visual Field Loss - 0(No visual loss) 4. Facial Palsy - 0(Normal) 5a. Left Arm: Motor (10-second hold) - 0(No drift) 5b. Right Arm: Motor (10-second hold) - 0(No drift) 6a. Left Leg: Motor (5-second hold - always test supine) - 0(No drift) 6b. Right Leg: Motor (5-second hold - always test supine) - 0(No drift) 7. Limb Ataxia (finger/nose \T\ heel/knutson - test with eyes open) - 0(Absent) 8. Sensory Loss (pinprick arms/legs/face) - 1(Mild to moderate loss) 9. Best Language: Aphasia (description/naming/reading) - 0(No aphasia) 10. Dysarthria (speech clarity - read or repeat words) - 0(Normal) 11. Extinction and Inattention (visual/tactile/auditory/spatial/personal) - 0(No abnormality) Initials: [facility] NIH Stroke Scale - NIH Stroke Score Date: 11/26/2017 Time: 12:07 Total Score = 1 1a. Level of Consciousness (LOC) - 0(Alert) 1b. Level of Consciousness (LOC) (Year \T\ Age) - 0(Both) 1c. LOC Commands (Open \T\ Closes Eyes/Frog Shaker) - 0(Both) 2. Best Gaze (Lateral Gaze Paresis) - 0(Normal) 3. Visual Field Loss - 0(No visual loss) 4. Facial Palsy - 0(Normal) 5a. Left Arm: Motor (10-second hold) - 0(No drift) 5b. Right Arm: Motor (10-second hold) - 0(No drift) 6a. Left Leg: Motor (5-second hold - always test supine) - 0(No drift) 6b. Right Leg: Motor (5-second hold - always test supine) - 0(No drift) 7. Limb Ataxia (finger/nose \T\ heel/knutson - test with eyes open) - 0(Absent) 8. Sensory Loss (pinprick arms/legs/face) - 1(Mild to moderate loss) 9. Best Language: Aphasia (description/naming/reading) - 0(No aphasia) 10. Dysarthria (speech clarity - read or repeat words) - 0(Normal) 11. Extinction and Inattention (visual/tactile/auditory/spatial/personal) - 0(No abnormality) Initials: em Signatures: Dispatcher [employer] Sejal Chiang, RN Courtney Carrington ch, RN RN aj Anderson, Corey, MD MD cha Munoz, Edgar, TRANSFER STATION ATTENDANT TRANSFER STATION ATTENDANT em Mahi Newsome RN RN iw Corrections: (The following items were deleted from the chart) 10:57 10:53 11/26/2017 10:[address] [facility]. [facility] Diagnosis is Paresthesia of skin; Transient cerebral ischemic attack, unspecified. Reason for transfer: Higher level of care. Accepting physician is to [facility]. Condition is Stable. Problem is new. Symptoms have improved. blaine 12:38 10:09 Urine Dipstick-Ancillary ordered. em 12:39 10:57 11/26/2017 10:[address] [facility]. em Diagnosis is Paresthesia of skin; Transient cerebral ischemic attack, unspecified; Essential (primary) hypertension. Reason for transfer: Higher level of care. Accepting physician is to [facility]. Condition is Stable. Problem is new. Symptoms have improved. blaine
[2017-11-26 13:21] VITALS: O2SAT 100
[2017-11-26 13:23] VITALS: BP 132/68
--- NOTE | 2017-11-27 12:13 | EKG ---
Test Date: 2017-11-26 Test Time: 09:59:18 Fruit Raiser: ALVA MEASUREMENT RESULTS: Intervals: Rate: 55 NV: 172 QRSD: 90 QT: 410 QTc: 392 [place]: P: 51 NV: 172 QRS: 37 T: 44 INTERPRETIVE STATEMENTS: Sinus bradycardia Otherwise normal ECG Compared to ECG 05/27/2017 04:47:03 No significant changes Electronically Signed On 11-27-17 12:08:03 CDT by Juan Daniel Solis
== END 2017-11-26 12:39 | disposition short-term general hospital (02) ==
LOC: ER 09:57
DX: G45.9 Transient cerebral ischemic attack, unspecified (principal); I10 Essential (primary) hypertension; E78.5 Hyperlipidemia, unspecified; Z79.82 Long term (current) use of aspirin; Z88.8 Allergy status to other drugs, medicaments and biological substances; Z86.73 Personal history of transient ischemic attack (TIA), and cerebral infarction without residual deficits; R29.701 NIHSS score 1
CPT/HCPCS: 36415; 70450; 71045; 80048; 80076; 82550; 82553; 83735; 83880; 84484; 85025; 85610; 85730; 93005; 96361; 96374; 96375; 99285; J3411; J7030

== ENCOUNTER 2018-05-25 06:57 | Day surgery (SDC) | payer OTHER ==
[2018-05-24 16:30] LABS: Absolute Lymphocytes (CBC) 1.2 K/uL (0.7-4.9); Absolute Monocytes 0.7 K/uL (0.1-1.3); Absolute Neutrophil 3.5 K/uL (1.8-8.0); Basophils % 0.9 % (0-1.3); Eosinophils % 3.7 % (0-4.4); Hematocrit 46.3 % (39.6-49.0); Lymphocytes % 20.9 % (15.3-44.8); MPV 8.3 fL (7.6-11.3); Monocytes % 11.8 % (3.3-12.3); RBC Red Blood Cell Count 5.15 M/uL (4.33-5.43)
--- NOTE | 2018-05-24 16:37 | RAD REPORT ---
EXAM DESCRIPTION: RAD - Chest Pa And Lat (2 Views) - 05/24/2018 4:31 pm CLINICAL HISTORY: preop Chest pain. COMPARISON: Chest Single View dated 11/26/2017; Chest Single View dated 05/27/2017; CHEST SINGLE VIEW dated 11/12/2011 FINDINGS: Linear subsegmental atelectasis is present in both lung bases. The lungs are mildly emphys ematous. The heart is mildly enlarged in size. No displaced fractures.
[2018-05-24 16:41] LABS: Potassium 3.8 mmol/L (3.5-5.1)
--- OUTSIDE RECORDS SUMMARY | 2018-05-25 07:01 | XMS REPORT | Clinical Summary ---
:1955 Author Organization [facility] Address [address] [place] [address] Care Team Providers Name Role Phone Konrad Rangeley Primary Care Provider Allergies Active Allergy Reactions Severity Noted Date Comments Lisinopril Other (See Comments) 05/27/2017 Medications Medication Sig Dispensed Refills Start Date End Date Status valsartan (DIOVAN) Take 80 mg by 0 Active 160 MG tablet mouth daily . fenofibric acid, Take 135 mg 0 Active choline, 135 mg by mouth capsule daily. aspirin 81 MG Take 1 tablet 90 tablet 1 05/29/2017 Active chewable tablet (81 mg total) by mouth daily. atorvastatin Take 1 tablet 90 tablet 1 05/28/2017 Active (LIPITOR) 40 MG (40 mg total) tablet by mouth nightly. losartan (COZAAR) Take 25 mg by 0 Active 25 MG tablet mouth daily. metoprolol Take 100 mg 0 11/27/2017 Discontinued (TOPROL-XL) 100 MG by mouth 24 hr tablet daily. cholecalciferol, Take by 0 11/27/2017 Discontinued vitamin D3, 2,000 mouth. unit Cap metoprolol Take 1 tablet 30 tablet 0 11/27/2017 12/27/2017 (TOPROL-XL) 100 MG (100 mg 24 hr tablet total) by mouth daily for 30 days HOLD IF HR LESS THAN 50. Active Problems Problem Noted Date Hypertension 11/26/2017 High triglycerides 11/26/2017 Neuropathy 11/26/2017 Acute ischemic stroke 05/27/2017 Stroke 05/27/2017 Encounters Date Type Specialty Care Team Description 11/26/2017 - Hospital Encounter General Internal Alejandra Perry; 11/27/2017 Medicine MD Freddy Dizziness; Delia, High triglycerides; Liborio Yang Hypertension, unspecified type III, 05/27/2017 - Hospital Encounter Intensive Care Hamilton Andres Cerebrovascular 05/28/2017 MD Gumaro accident (CVA), unspecified mechanism (HCC) 05/27/2017 Emergency Emergency Zach Andresic Medicine MD Gumaro after 05/24/2017 Social History Tobacco Use Types Packs/Day Years Used Date Never Smoker Alcohol Use Drinks/Week oz/Week Comments No Sex Assigned at Date Recorded Not on file Job Start Date Occupation Industry Not on file Not on file Not on file Travel History Travel Start Travel End No recent travel history available. Last Filed Vital Signs Vital Sign Reading Time Taken Blood Pressure 122/66 11/27/2017 3:00 PM CDT Pulse 52 11/27/2017 3:00 PM CDT Temperature 36.4 C (97.5 F) 11/27/2017 3:00 PM CDT Respiratory Rate 18 11/27/2017 3:00 PM CDT Oxygen Saturation 95% 11/27/2017 3:00 PM CDT Inhaled Oxygen Concentration - - Weight 102.1 kg (225 lb) 11/26/2017 4:00 PM CDT Height 198.1 cm (6' 6") 11/26/2017 4:00 PM CDT Body Mass Index 26 11/26/2017 4:00 PM CDT Plan of Treatment Not on file Procedures Procedure Name Priority Date/Time Associated Comments Diagnosis RHYTHM STRIP - SCAN 11/30/2017 7:50 AM CDT MR BRAIN WITHOUT IV Routine 11/27/2017 11:08 Results for this CONTRAST AM CDT procedure are in the results section. URINE PROTEIN AP Routine 11/27/2017 8:43 Results for this ELECTROPHORESIS, AM CDT procedure are in RANDOM the results section. PROTEIN AP Routine 11/27/2017 7:32 Results for this ELECTROPHORESIS, SERUM AM CDT procedure are in the results section. RPR Routine 11/27/2017 7:32 Results for this AM CDT procedure are in the results section. ANTI-NUCLEAR ANTIBODY Routine 11/27/2017 7:32 Results for this (OLENA) AM CDT procedure are in the results section. VITAMIN B12 AND FOLATE Routine 11/27/2017 7:32 Results for this AM CDT procedure are in the results section. CBC W/PLT COUNT & AUTO Routine 11/27/2017 5:48 Results for this DIFFERENTIAL AM CDT procedure are in the results section. CBC W/PLT COUNT & AUTO Routine 11/27/2017 5:48 Results for this DIFFERENTIAL AM CDT procedure are in the results section. PHOSPHORUS Routine 11/27/2017 5:48 Results for this AM CDT procedure are in the results section. MAGNESIUM Routine 11/27/2017 5:48 Results for this AM CDT procedure are in the results section. CALCIUM, IONIZED Routine 11/27/2017 5:48 Results for this AM CDT procedure are in the results section. HEMOGLOBIN A1C Routine 11/27/2017 5:48 Results for this AM CDT procedure are in the results section. LIPID PANEL Routine 11/27/2017 5:48 Results for this AM CDT procedure are in the results section. BASIC METABOLIC PANEL Routine 11/27/2017 5:48 Results for this (7) AM CDT procedure are in the results section. TRANSFUSION SERVICE 05/28/2017 5:43 REPORT - SCAN PM CDT MR MRA NECK WITHOUT IV STAT 05/28/2017 12:09 Results for this CONTRAST PM CDT procedure are in the results section. MR MRA HEAD WITHOUT STAT 05/28/2017 12:09 Results for this CONTRAST PM CDT procedure are in the results section. MR BRAIN WITHOUT IV STAT 05/28/2017 12:09 Results for this CONTRAST PM CDT procedure are in the results section. ECHOCARDIOGRAM REPORT 05/28/2017 11:20 - SCAN AM CDT CT BRAIN WITHOUT IV STAT 05/28/2017 7:44 Results for this CONTRAST AM CDT procedure are in the results section. CBC W/PLT COUNT & AUTO Routine 05/28/2017 5:12 Results for this DIFFERENTIAL AM CDT procedure are in the results section. MAGNESIUM Routine 05/28/2017 5:12 Results for this AM CDT procedure are in the results section. BASIC METABOLIC PANEL Routine 05/28/2017 5:12 Results for this (7) AM CDT procedure are in the results section. PHOSPHORUS Routine 05/28/2017 5:12 Results for this AM CDT procedure are in the results section. CBC W/PLT COUNT & AUTO Routine 05/28/2017 5:12 Results for this DIFFERENTIAL AM CDT procedure are in the results section. LIPID PANEL Routine 05/28/2017 5:12 Results for this AM CDT procedure are in the results section. 2D ECHO W/ DOPPLER Routine 05/27/2017 1:59 Results for this (CW/PW/COLOR) PM CDT procedure are in the results section. CBC W/PLT COUNT & AUTO Routine 05/27/2017 8:53 Results for this DIFFERENTIAL AM CDT procedure are in the results section. TYPE AND SCREEN, Routine 05/27/2017 8:53 Results for this AUTOMATED AM CDT procedure are in the results section. LIPID PANEL Routine 05/27/2017 8:53 Results for this AM CDT procedure are in the results section. VITAMIN B12 AND FOLATE Routine 05/27/2017 8:53 Results for this AM CDT procedure are in the results section. TSH/FREE T4 IF Routine 05/27/2017 8:53 Results for this INDICATED AM CDT procedure are in the results section. RPR Routine 05/27/2017 8:53 Results for this AM CDT procedure are in the results section. HEPATIC FUNCTION PANEL Routine 05/27/2017 8:53 Results for this AM CDT procedure are in the results section. HEMOGLOBIN A1C Routine 05/27/2017 8:53 Results for this AM CDT procedure are in the results section. TROPONIN I Routine 05/27/2017 8:53 Results for this AM CDT procedure are in the results section. CBC W/PLT COUNT & AUTO Routine 05/27/2017 8:53 Results for this DIFFERENTIAL AM CDT procedure are in the results section. BASIC METABOLIC PANEL Routine 05/27/2017 8:53 Results for this (7) AM CDT procedure are in the results section. after 05/24/2017 Results RHYTHM STRIP - SCAN (11/30/2017 7:50 AM CDT) Narrative Performed At MR brain without IV contrast (11/27/2017 11:08 AM CDT)Only the most recent of2 resultswithin the time period is included. Narrative Performed At FINAL REPORT [facility] MRI brain Comparison: Head CT May 28, 2017 Reason for exam: ruleout stroke Discussion: Multiplanar MR imaging the brain was performed using T1, T2, FLAIR, FFE, diffusion, and ADC map imaging. There are no intracranial hematomas, mass effect, hydrocephalus, shift, or extra-axial collections. There are no areas of abnormal diffusion restriction. 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 Flow-voids are seen in the basilar and internal carotid arteries as well as in the large posterior dural sinuses. The pineal, sella, and craniocervical junction regions are unremarkable. The visualized orbital contents, paranasal sinuses, skullbase and surrounding soft tissues are unremarkable.. Impressions: Negative cranial MRI. Signed: Canelo Arteaga MD Report Verified Date/Time:11/27/2017 13:18:28 Reading Location: [address] Neuro Reading Room Procedure Note Interface, External Ris In - 11/27/2017 1:20 PM CDT FINAL REPORT MRI brain Comparison: Head CT May 28, 2017 Reason for exam: ruleout stroke Discussion: Multiplanar MR imaging the brain was performed using T1, T2, FLAIR, FFE, diffusion, and ADC map imaging. There are no intracranial hematomas, mass effect, hydrocephalus, shift, or extra-axial collections. There are no areas of abnormal diffusion restriction. 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 Flow-voids are seen in the basilar and internal carotid arteries as well as in the large posterior dural sinuses. The pineal, sella, and craniocervical junction regions are unremarkable. The visualized orbital contents, paranasal sinuses, skullbase and surrounding soft tissues are unremarkable. . Impressions: Negative cranial MRI. Signed: Canelo Arteaga MD Report Verified Date/Time: 11/27/2017 13:18:28 Reading Location: [address] Neuro Reading Room Performing Organization Address City/State/Zipcode Phone Number [facility] Urine Protein Electrophoresis, random (11/27/2017 8:43 AM CDT) Protein, Urine <7 0 - 14 mg/dL [facility] Albumin %, Urine 45.9 % [facility] Globulin %, Urine 54.1 % [facility] UPEP,ID Normal UPEP with no [facility] proteinuria. [facility] Pathologist: Dariana Francois MD [facility] (electronic signature) [facility] Specimen Urine - Urine, Voided Performing Organization Address [facility]/Zipcode Phone Number [address] [address] [phone] [place] Vitamin B12 and Folate (11/27/2017 7:32 AM CDT)Only the most recent of2 resultswithin the time period is included. Vitamin B12 577 213 - 816 pg/mL [facility] Folate 15.2 >=7.0 ng/mL [facility] Specimen Blood - Arm, Left Performing Organization Address [facility] Phone Number [address] [address] CENTER RPR (11/27/2017 7:32 AM CDT)Only the most recent of2 resultswithin the time period is included. RPR Nonreactive Nonreactive [facility] Specimen Blood - Arm, Left Performing Organization Address [facility] Phone Number [address] [address] [place] Anti-Nuclear Antibody (OLENA) (11/27/2017 7:32 AM CDT) OLENA Negative Negative [facility] Specimen Blood - Arm, Left Narrative Performed At [facility] Test performed by IFA method. Test performed by IFA method. Performing Organization Address [facility] Phone Number [address] [address] [place] Protein electrophoresis, serum (11/27/2017 7:32 AM CDT) Albumin Fraction 4.0 3.5 - 5.5 g/dL [facility] Alpha 1 Fraction 0.3 0.2 - 0.4 g/dL [facility] Alpha 2 Fraction 0.5 0.5 - 0.9 g/dL [facility] Beta Fraction 0.8 0.6 - 1.1 g/dL [facility] Gamma Globulin Fraction 1.0 0.7 - 1.7 g/dL [facility] Interpretation Normal electrophoretic [facility] Pathologist: Dariana Francois MD [facility] (electronic signature) [facility] Protein, Total 6.5 6.0 - 8.3 gm/dL [facility] Specimen Blood - Arm, Left Performing Organization Address [facility] Phone Number [address] [address] [place] Calcium, Ionized (11/27/2017 5:48 AM CDT) Calcium, Ion 1.16 1.12 - 1.27 mmol/L [facility] pH, Blood 7.37 [facility] Specimen Blood Performing Organization Address City/[facility] Phone Number [address] [address] [phone] [place] CBC with platelet count + automated diff (11/27/2017 5:48 AM CDT)Only the most recent of3 resultswithin the time period is included. WBC 6.3 3.5 - 10.5 K/L [facility] RBC 4.82 4.63 - 6.08 M/L [facility] Hemoglobin 15.0 13.7 - 17.5 GM/DL [facility] Hematocrit 44.9 40.1 - 51.0 % [facility] MCV 93.2 (H) 79.0 - 92.2 fL [facility] MCH 31.1 25.7 - 32.2 pg [facility] MCHC 33.4 32.3 - 36.5 GM/DL [facility] RDW 11.9 11.6 - 14.4 % [facility] Platelets 165 150 - 450 K/CU MM [facility] MPV 10.2 9.4 - 12.4 fL [facility] nRBC 0 0 - 0 /100 WBC [facility] % Neutros 69 % [facility] % Lymphs 17 % [facility] % Monos 11 % [facility] % Eos 2 % [facility] % Baso 1 % [facility] # Neutros 4.36 1.78 - 5.38 K/L [facility] # Lymphs 1.08 (L) 1.32 - 3.57 K/L [facility] # Monos 0.66 0.30 - 0.82 K/L [facility] # Eos 0.15 0.04 - 0.54 K/L [facility] # Baso 0.04 0.01 - 0.08 K/L [facility] Immature Granulocytes-Relative 0 0 - 1 % [facility] Specimen Blood Performing Organization Address City/State/Zipcode Phone Number [address] [address] CENTER Phosphorus (11/27/2017 5:48 AM CDT)Only the most recent of2 resultswithin the time period is included. Phosphorus 3.6 2.3 - 4.7 mg/dL [facility] Specimen Blood Performing Organization Address City/State/Zipcode Phone Number [address] [address] CENTER Magnesium (11/27/2017 5:48 AM CDT)Only the most recent of2 resultswithin the time period is included. Magnesium 2.2 1.6 - 2.6 mg/dL [facility] Specimen Blood Performing Organization Address City/[facility]/Zipcode Phone Number [facility] [address] [place] [address] [place] Hemoglobin A1c (11/27/2017 5:48 AM CDT)Only the most recent of2 resultswithin the time period is included. Hemoglobin A1C 5.4 4.3 - 6.1 % [facility] Specimen Blood Performing Organization Address City/[facility] Phone Number [facility] [address] [place] [address] [place] Lipid panel (11/27/2017 5:48 AM CDT)Only the most recent of3 resultswithin the time period is included. Triglycerides 72 mg/dL [facility] Cholesterol 103 mg/dL [facility] HDL 32 mg/dL [facility] LDL Calculated 57 mg/dL [facility] Specimen Blood Narrative Performed At [facility] Triglyceride Reference Range: Low Risk <150 [id number] High Risk 200-499 Very High Risk>=500 Cholesterol Reference Range: Low Risk <200 [id number] High Risk>240 HDL Cholesterol Reference Range: Low Risk >=60 High Risk <40 LDL Cholesterol Reference Range: Optimal<100 Near [id number] [id number] Nias572-027 Very High >=190 Performing Organization Address City/[facility] Phone Number [facility] [address] [place] [address] CENTER Basic metabolic panel (11/27/2017 5:48 AM CDT)Only the most recent of3 resultswithin the time period is included. Sodium 140 136 - 145 meq/L [facility] Potassium 4.0 3.5 - 5.1 meq/L [facility] Chloride 107 98 - 107 meq/L [facility] CO2 26 22 - 29 meq/L [facility] BUN 16 7 - 21 mg/dL [facility] Creatinine 0.99 0.57 - 1.25 mg/dL [facility] Glucose 98 70 - 105 mg/dL [facility] Calcium 9.6 8.4 - 10.2 mg/dL [facility] EGFR 77Comment: ESTIMATED GFR IS mL/min/1.73 sq m [facility] NOT ACCURATE [facility] CLEARANCE IN PREDICTING GLOMERULAR FILTRATION RATE. ESTIMATED GFR IS NOT APPLICABLE FOR DIALYSIS PATIENTS. Specimen Blood Performing Organization Address City/State/Zipcode Phone Number [facility] [address] [place] [address] CENTER TRANSFUSION SERVICE REPORT - SCAN (05/28/2017 5:43 PM CDT) Narrative Performed At MR MRA neck without contrast (05/28/2017 12:09 PM CDT) Narrative Performed At FINAL REPORT [facility] MRA Head CLINICAL HISTORY: Stroke TECHNIQUE: MRA of the head utilizing 3-D jxru-rz-veekue technique, with 3-D reconstructions. COMPARISON: None FINDINGS: There is no evidence of intracranial aneurysm, focal stenosis, or major branch vessel occlusion. There are bilateral posterior communicating arteries. IMPRESSION: No evidence for a major tribe of Briones proximal branch vessel occlusion. MRA Neck CLINICAL HISTORY: Stroke TECHNIQUE: MRA of the neck utilizing 2-D and 3-D ynpy-qe-phlkaa technique, with 3-D reconstructions. COMPARISON: None FINDINGS: The carotid arteries in the neck are patent including their bifurcations. There is antegrade flow in the vertebral arteries in the neck. IMPRESSION: No evidence of hemodynamically significant stenosis in the cervical carotid or vertebral arteries by NASCET criteria. Signed: America Arzate MD Report Verified Date/Time:05/28/2017 12:18:08 Reading Location: [facility] [id number] Neuro Reading Room Procedure Note Interface, External Ris In - 05/28/2017 12:20 PM CDT FINAL REPORT MRA Head CLINICAL HISTORY: Stroke TECHNIQUE: MRA of the head utilizing 3-D xqrk-qq-vyrkic technique, with 3-D reconstructions. COMPARISON: None FINDINGS: There is no evidence of intracranial aneurysm, focal stenosis, or major branch vessel occlusion. There are bilateral posterior communicating arteries. IMPRESSION: No evidence for a major tribe of Briones proximal branch vessel occlusion. MRA Neck CLINICAL HISTORY: Stroke TECHNIQUE: MRA of the neck utilizing 2-D and 3-D sibj-nu-ggwibg technique, with 3-D reconstructions. COMPARISON: None FINDINGS: The carotid arteries in the neck are patent including their bifurcations. There is antegrade flow in the vertebral arteries in the neck. IMPRESSION: No evidence of hemodynamically significant stenosis in the cervical carotid or vertebral arteries by NASCET criteria. Signed: America Arzate MD Report Verified Date/Time: 05/28/2017 12:18:08 Reading Location: [address] Neuro Reading Room Performing Organization Address City/State/Zipcode Phone Number [facility] MR MRA head without contrast (05/28/2017 12:09 PM CDT) Narrative Performed At FINAL REPORT [facility] MRA Head CLINICAL HISTORY: Stroke TECHNIQUE: MRA of the head utilizing 3-D xxwf-kq-mqfjnq technique, with 3-D reconstructions. COMPARISON: None FINDINGS: There is no evidence of intracranial aneurysm, focal stenosis, or major branch vessel occlusion. There are bilateral posterior communicating arteries. IMPRESSION: No evidence for a major tribe of Briones proximal branch vessel occlusion. MRA Neck CLINICAL HISTORY: Stroke TECHNIQUE: MRA of the neck utilizing 2-D and 3-D rqrh-rt-myczyu technique, with 3-D reconstructions. COMPARISON: None FINDINGS: The carotid arteries in the neck are patent including their bifurcations. There is antegrade flow in the vertebral arteries in the neck. IMPRESSION: No evidence of hemodynamically significant stenosis in the cervical carotid or vertebral arteries by NASCET criteria. Signed: America Arzate MD Report Verified Date/Time:05/28/2017 12:18:08 Reading Location: [address] Neuro Reading Room Procedure Note Interface, External [facility] In - 05/28/2017 12:20 PM CDT FINAL REPORT MRA Head CLINICAL HISTORY: Stroke TECHNIQUE: MRA of the head utilizing 3-D dpay-yn-djmtay technique, with 3-D reconstructions. COMPARISON: None FINDINGS: There is no evidence of intracranial aneurysm, focal stenosis, or major branch vessel occlusion. There are bilateral posterior communicating arteries. IMPRESSION: No evidence for a major tribe of Briones proximal branch vessel occlusion. MRA Neck CLINICAL HISTORY: Stroke TECHNIQUE: MRA of the neck utilizing 2-D and 3-D mtun-tz-jwjukc technique, with 3-D reconstructions. COMPARISON: None FINDINGS: The carotid arteries in the neck are patent including their bifurcations. There is antegrade flow in the vertebral arteries in the neck. IMPRESSION: No evidence of hemodynamically significant stenosis in the cervical carotid or vertebral arteries by NASCET criteria. Signed: America Arzate MD Report Verified Date/Time: 05/28/2017 12:18:08 Reading Location: [address] Neuro Reading Room Performing Organization Address City/State/Zipcode Phone Number [facility] ECHOCARDIOGRAM REPORT - SCAN (05/28/2017 11:20 AM CDT) Narrative Performed At CT brain without IV contrast (05/28/2017 7:44 AM CDT) Narrative Performed At FINAL REPORT [facility] CT Head without contrast CLINICAL HISTORY: Stroke [...] acute infarct, hemorrhage, or hydrocephalus. Signed: America Arzate MD Report Verified Date/Time:05/28/2017 07:58:27 Reading Location: [address] Neuro Reading Room Procedure Note Interface, [...] acute infarct, hemorrhage, or hydrocephalus. Signed: America Arzate MD Report Verified Date/Time: 05/28/2017 07:58:27 Reading Location: [facility] [id number] Neuro Reading Room Performing Organization Address City/State/Zipcode Phone Number [facility] 2D Echo W/Doppler(CW/PW/Color) with saline (05/27/2017 1:59 PM CDT) Ejection Fraction [facility] ECHO [facility] Narrative Performed At Transthoracic Echocardiography Report (TTE) [facility] ECHO [facility]ARTLAB [facility] Demographics Patient Name Ihsan SALVADOR of Study 05/27/2017 SHIRA [id number] GenderMale Visit Number [id number] RaceUnknown [id number] m Number [id number] Number Date of Birth1955 Referring Physician Mckenna Naik Age62 year(s) Program Lead Cecilia Borden AnalystAlex Physician KATJA Sahu Procedure Type of Study TTE procedure:2DECHO W [...] (male - LVED vol - 34-74ml/m2). Mild co ncentric LV hypertrophy. All of the LV segments co ntract normally . Global LV systolic function no rmal . Estimated LVEF by qualitative assessment is normal (55-60%) . Grade 1 diastolic dysfunction (i mpaired relaxation and low-normal LA pressure). Left AtriumLA size is mildly enlarged . Right VentricleNormal right ventricle structure and function. Right Atrium Normal right atrium. Atrial SeptumIV saline contrast injection was negative for a PFO (p atent foramen ovale) at rest and post Valsalva . Aortic Valve Mild AoV cusp thickening. Mi ld aortic regurgitation. Mitral Valve Mild mitral annular calcification. Tricuspid ValveA trace of tricuspid regurgitation. Un able to estimate peak systolic PA pressure; in adequate TR velocity signal. Pulmonic Valve Normal PV structure and function by limited views an d Doppler. AortaAortic root size (SInus of Valsalva diameter) is no rmal . PericardiumNo evidence of pericardial effusion. IVC/SVC/PA/PV/PleuralThe estimated RA pressure by IVC dynamics 0-5mmHg . Chambers/Structures Left Atrium LA Dimension: 4.25 cmLA Area: 26.64 cm^2 LA Volume: 90.44 ml LA Vol. Index: 36 ml/m^2 Left Ventricle LVIDd: 4.92 cm LV Septum Diastolic: 1.29 cm LV PW Diastolic: 1.24 cm LVEDV Torres's:158.56 ml LVESV Torres's:66.25 ml LVEF Torres's: 58.2 %LVEDV I: 63 ml/m^2 LVESVI: 26 ml/m^2 LVOT Diameter: [...] Echocardiography Report (TTE) Demographics Patient Name RUSSELL SALVADOR Date of Study 05/27/2017 SHIRA Gender Male Visit Number [id number] Race Unknown Room Number 7516 Number Date of 1955 Referring Physician Mckenna Naik Age 62 year(s) Program Lead Cecilia Borden Registered Medical Assistant Levi Jiménez Interpreting Brooks Soriano Physician Procedure [...] CO: 4.66 l/min LVOT CI: 1.86 l/min/m^2 Performing Organization Address City/[facility] Phone Number [facility] [employer] HEART[facility] CPACS Type and screen, automated (05/27/2017 8:53 AM CDT) ABO/RH AUTOMATED (KAEL) B POSITIVE [facility] Ab Scrn NEGATIVE [facility] Specimen Blood Performing Organization Address City/[facility]/Zipcode Phone Number THE [facility] [address] [place] [address] TSH/Free T4 If Indicated (05/27/2017 8:53 AM CDT) TSH 0.97 0.35 - 4.94 uIU/mL [facility] Specimen Blood Performing Organization Address [facility] Phone Number [address] [address] [phone] JARRATT Troponin I (05/27/2017 8:53 AM CDT) Troponin I 0.01 0.00 - 0.03 ng/mL [facility] Specimen Blood Narrative Performed At [facility] Troponin I (TnI) levels must be interpreted [...] acidosis, acute neurological disease, and persistent tachyarrhythmia. Performing Organization Address [facility] Phone Number [address] [address] JARRATT Hepatic function panel (05/27/2017 8:53 AM CDT) Protein, Total 6.4Comment: Specimen 6.0 - 8.3 gm/dL [facility] Albumin 4.0Comment: Specimen 3.5 - 5.0 g/dL [facility] Total Bilirubin 0.5Comment: Specimen 0.2 - 1.2 mg/dL [facility] Bilirubin, Direct 0.2Comment: Specimen 0.1 - 0.5 mg/dL [facility] Alkaline Phosphatase 48 40 - 150 U/L [facility] AST 27Comment: Specimen 5 - 34 U/L [facility] ALT 20Comment: Specimen 6 - 55 U/L [facility] Specimen Blood Performing Organization Address [facility] Phone Number [address] [address] [phone] CENTER after 05/24/2017 Insurance Payer Benefit Plan / Group Subscriber ID Type Phone Address AETNA - MGD CARE AETNA HMO POS QPOS xxxxxxxxx HMO/POS (Work) Advance Directives For more information, please contact:[address] [phone] Code Status Date Activated Date Inactivated Comments Full Code 11/26/2017 8:29 PM 11/27/2017 7:41 PM This code status was determined by: Patient Full Code 05/27/2017 8:01 AM 05/28/2017 5:04 PM This code status was determined by: Patient Full Code 05/27/2017 7:48 AM 05/27/2017 7:51 AM This code status was determined by: Patient
--- OUTSIDE RECORDS SUMMARY | 2018-05-25 07:02 | XMS REPORT ---
:1955 Author Organization [facility] Address [address] [place] [address] Dr. Frausto [address] [place] [id number] Care Team Providers Name Role Phone JENNIFER HERNANDEZ Unavailable Unavailable REBEKAH MADDOX Unavailable Unavailable Problems This patient has no known problems. Allergies, Adverse Reactions, Alerts This patient has no known allergies or adverse reactions. Medications This patient has no known medications. Results Test Description Test Time Test Comments Text Results Atomic Results Result Comments URINE PROTEIN ELECTROPHORESIS, RANDOM 2017-11-29 14:30:00 Test Item Value Reference Range Comments PROTEIN, URINE (BEAKER) (test rcog=3481) < mg/dL 0-14 ALBUMIN URINE ELP (BEAKER) (test 45.9 % fqzp=3009) GAMMA GLOBULIN URINE (BEAKER) (test 54.1 % vjyj=4797) UPEP, ID-438 (BEAKER) (test mikd=4423) Normal UPEP with no proteinuria. [id number] (BEAKER) (test Dariana Francois MD (electronic hrsz=2521) signature) PROTEIN ELECTROPHORESIS, [id number] 14:18:00 Test Item Value Reference Range Comments ALBUMIN FRACTION (BEAKER) 4.0 g/dL 3.5-5.5 (test qhfp=769) ALPHA 1 FRACTION (BEAKER) 0.3 g/dL 0.2-0.4 (test stmp=493) ALPHA 2 FRACTION (BEAKER) 0.5 g/dL 0.5-0.9 (test nedo=216) BETA FRACTION (BEAKER) 0.8 g/dL 0.6-1.1 (test eduh=946) GAMMA GLOBULIN FRACTION 1.0 g/dL 0.7-1.7 (BEAKER) (test goea=519) INTERPRETATION-119 (BEAKER) Normal electrophoretic pattern. (test saip=0439) [id number] Dariana Francois MD (electronic (BEAKER) (test wfbw=7011) signature) PROTEIN TOTAL SERUM, SPEP 6.5 gm/dL 6.0-8.3 (BEAKER) (test pcts=6683) ANTI-NUCLEAR ANTIBODY (OLENA)2017-11-29 10:04:00 Test Item Value Reference Range Comments ANTI-NUCLEAR ANTIBODY (OLENA) (BEAKER) (test Negative Negative efic=103) Test performed by IFA method.Test performed by IFA method.[id number] 05:18:00 Test Item Value Reference Range Comments RPR SCREEN (BEAKER) (test vbjv=434) Nonreactive Nonreactive MR, BRAIN, WITHOUT [id number] 13:18:00FINAL REPORT MRI brain Comparison: Head CT May [...] craniocervical junction regions are unremarkable. The visualized orbitalcontents, paranasal sinuses, skullbase and surrounding soft tissues are unremarkable. . Impressions: Negative cranial MRI. Signed: Canelo Arteaga MDReport Verified Date /Time: 11/27/2017 13:18:28 Reading Location: [facility] C013V Neuro Reading Room Electronically signed by: CANELO ARTEAGA M.D. on11/27/2017 01:18 PMHEMOGLOBIN [id number] 08:57:00 Test Item Value Reference Range Comments HEMOGLOBIN A1C (BEAKER) (test nlcr=825) 5.4 % 4.3-6.1 VITAMIN B12 AND [id number] 08:48:00 Test Item Value Reference Range Comments VITAMIN B12 (BEAKER) (test knvp=233) 577 pg/mL 213-816 FOLATE (BEAKER) (test mnqs=546) 15.2 ng/mL >=7.0 [id number] 06:49:00 Test Item Value Reference Range Comments PHOSPHORUS (BEAKER) (test mmka=325) 3.6 mg/dL 2.3-4.7 [id number] 06:49:00 Test Item Value Reference Range Comments MAGNESIUM (BEAKER) (test ktxa=225) 2.2 mg/dL 1.6-2.6 BASIC METABOLIC [id number] 06:49:00 Test Item Value Reference Range Comments SODIUM (BEAKER) (test 140 meq/L 136-145 egpf=070) POTASSIUM (BEAKER) (test 4.0 meq/L 3.5-5.1 fvvh=977) CHLORIDE (BEAKER) (test 107 meq/L 98-107 jugk=701) CO2 (BEAKER) (test 26 meq/L 22-29 gkbg=587) BLOOD UREA NITROGEN 16 mg/dL 7-21 (BEAKER) (test hzuf=881) CREATININE (BEAKER) (test 0.99 mg/dL 0.57-1.25 aezl=465) GLUCOSE RANDOM (BEAKER) 98 mg/dL 70-105 (test cyul=695) CALCIUM (BEAKER) (test 9.6 mg/dL 8.4-10.2 jvvb=650) EGFR (BEAKER) (test 77 mL/min/1.73 sq m ESTIMATED GFR IS NOT evre=8236) ACCURATE CREATININE CLEARANCE IN PREDICTING GLOMERULAR FILTRATION RATE. ESTIMATED GFR IS NOT APPLICABLE FOR DIALYSIS PATIENTS. LIPID [id number] 06:49:00 Test Item Value Reference Range Comments TRIGLYCERIDES (BEAKER) (test zmsk=043) 72 mg/dL CHOLESTEROL (BEAKER) (test mjyi=205) 103 mg/dL HDL CHOLESTEROL (BEAKER) (test amfz=995) 32 mg/dL LDL CHOLESTEROL CALCULATED (BEAKER) (test 57 mg/dL arpt=403) Triglyceride Reference Range: Low Risk <150 Borderline 150- 199 High Risk 200-499 Very High Risk >=500Cholesterol Reference Range: Low Risk <200 Borderline 200-239 High Risk > 240HDL Cholesterol Reference Range: Low Risk >=60 High Risk <40LDL Cholesterol Reference Range: Optimal <100 Near Optimal 100-129 Borderline 130-159 High 160-189 Very High >=190CALCIUM, [id number] 06:23:00 Test Item Value Reference Range Comments CALCIUM IONIZED (BEAKER) (test biip=649) 1.16 mmol/L 1.12-1.27 PH, BLOOD (BEAKER) (test mkon=9399) 7.37 CBC W/PLT COUNT & AUTO [id number] 06:17:00 Test Item Value Reference Range Comments WHITE BLOOD CELL COUNT (BEAKER) (test hpwe=169) 6.3 K/ L 3.5-10.5 RED BLOOD CELL COUNT (BEAKER) (test scuc=954) 4.82 M/ L 4.63-6.08 HEMOGLOBIN (BEAKER) (test qqjk=954) 15.0 GM/DL 13.7-17.5 HEMATOCRIT (BEAKER) (test hltj=423) 44.9 % 40.1-51.0 MEAN CORPUSCULAR VOLUME (BEAKER) (test gcav=827) 93.2 fL 79.0-92.2 MEAN CORPUSCULAR HEMOGLOBIN (BEAKER) (test 31.1 pg 25.7-32.2 yrev=631) MEAN CORPUSCULAR HEMOGLOBIN CONC (BEAKER) (test 33.4 GM/DL 32.3-36.5 cbhk=793) RED CELL DISTRIBUTION WIDTH (BEAKER) (test 11.9 % 11.6-14.4 iexw=513) PLATELET COUNT (BEAKER) (test gigq=785) 165 K/CU MM 150-450 MEAN PLATELET VOLUME (BEAKER) (test bdvj=802) 10.2 fL 9.4-12.4 NUCLEATED RED BLOOD CELLS (BEAKER) (test 0 /100 WBC 0-0 lfym=033) NEUTROPHILS RELATIVE PERCENT (BEAKER) (test 69 % cqjb=033) LYMPHOCYTES RELATIVE PERCENT (BEAKER) (test 17 % rasv=771) MONOCYTES RELATIVE PERCENT (BEAKER) (test 11 % rbxz=182) EOSINOPHILS RELATIVE PERCENT (BEAKER) (test 2 % skic=955) BASOPHILS RELATIVE PERCENT (BEAKER) (test 1 % wzdw=555) NEUTROPHILS ABSOLUTE COUNT (BEAKER) (test 4.36 K/ L 1.78-5.38 iscs=442) LYMPHOCYTES ABSOLUTE COUNT (BEAKER) (test 1.08 K/ L 1.32-3.57 mans=573) MONOCYTES ABSOLUTE COUNT (BEAKER) (test 0.66 K/ L 0.30-0.82 urnl=350) EOSINOPHILS ABSOLUTE COUNT (BEAKER) (test 0.15 K/ L 0.04-0.54 umor=809) BASOPHILS ABSOLUTE COUNT (BEAKER) (test 0.04 K/ L 0.01-0.08 puec=721) IMMATURE GRANULOCYTES-RELATIVE PERCENT (BEAKER) 0 % 0-1 (test aclv=6359) MR, MRA, BRAIN, WITHOUT [id number] 12:18:00Reason for exam:-> StrokeWhat is the patient's sedation requirement?->No SedationFINAL REPORT MRA Head CLINICAL HISTORY: Stroke TECHNIQUE: MRA of the head utilizing 3-D htai-xk-ykusvu technique, with 3-D reconstructions. COMPARISON: None FINDINGS: There is noevidence of intracranial aneurysm, focal stenosis, or major branch vessel occlusion. There are bilateral posterior communicating arteries. IMPRESSION: No evidence for a major robinson of Briones proximal branch vessel occlusion. MRA Neck CLINICAL HISTORY: Stroke TECHNIQUE : MRA of the neck utilizing 2-D and 3-D nnzt-vk-jstizo technique, with 3-D reconstructions. COMPARISON: None FINDINGS: The carotidarteries in the neck are patent including their bifurcations. There is antegrade flow in the vertebral arteries in the neck. IMPRESSION: No evidence of hemodynamically significant stenosis in the cervical carotid or vertebral arteries by NASCET criteria. Signed: America King MDReport Verified Date/Time: 05/28/2017 12:18: 08 Reading Location: [address] Neuro Reading Room MR, MRA, NECK, WITHOUT IV [id number] 12:18:00FINAL REPORT MRA Head CLINICAL HISTORY: Stroke TECHNIQUE: MRA of the head utilizing 3-D time-of- flight technique, with 3-D reconstructions. COMPARISON: None FINDINGS: There is noevidence of intracranial aneurysm, focal stenosis, or major branch vessel occlusion. There are bilateral posterior communicating arteries. IMPRESSION: No evidence for a major robinson of Briones proximal branch vessel occlusion. MRA Neck CLINICAL HISTORY: Stroke TECHNIQUE: MRA of the neck utilizing 2-D and 3 -D zgjo-ou-jpaaxp technique, with 3-D reconstructions. COMPARISON: None FINDINGS : The carotidarteries in the neck are patent including their bifurcations. There is antegrade flow in the vertebral arteries in the neck. IMPRESSION: No evidence of hemodynamically significant stenosis in the cervical carotid or vertebral arteries by NASCET criteria. Signed: America King Verified Date/Time: 05/28/2017 12:18:08 Reading Location: [address] Neuro Reading Room MR, BRAIN, WITHOUT [id number] 11:48:00Reason for exam:->Strokepost- tpa scanWhat is the patient's sedation requirement?->No SedationFINAL REPORT MRI Brain without contrast Clinical History: [...] imaging if clinically warranted. Signed: America King VerifiedDate/Time: 05/28/2017 11:48:29 Reading Location : [address] Neuro Reading Room [id number] 09:59:00 Test Item Value Reference Range Comments RPR SCREEN (BEAKER) (test ctma=096) Nonreactive Nonreactive CT, BRAIN, WITHOUT [id number] 07:58:00FINAL REPORT CT Head without contrast CLINICAL [...] Verified Date/Time : 05/28/2017 07:58:27 Reading Location: [facility] C013V Neuro Reading Room [id number] 05:58:00 Test Item Value Reference Range Comments PHOSPHORUS (BEAKER) (test iomg=282) 3.0 mg/dL 2.3-4.7 [id number] 05:58:00 Test Item Value Reference Range Comments MAGNESIUM (BEAKER) (test lhba=203) 2.1 mg/dL 1.6-2.6 FastingBASIC METABOLIC [id number] 05:58:00 Test Item Value Reference Range Comments SODIUM (BEAKER) (test 141 meq/L 136-145 tioy=588) POTASSIUM (BEAKER) (test 4.0 meq/L 3.5-5.1 frki=704) CHLORIDE (BEAKER) (test 108 meq/L 98-107 goqf=118) CO2 (BEAKER) (test 24 meq/L 22-29 hsct=530) BLOOD UREA NITROGEN 17 mg/dL 7-21 (BEAKER) (test iles=738) CREATININE (BEAKER) (test 0.92 mg/dL 0.57-1.25 tygs=234) GLUCOSE RANDOM (BEAKER) 128 mg/dL 70-105 (test yjii=134) CALCIUM (BEAKER) (test 9.6 mg/dL 8.4-10.2 qpbb=252) EGFR (BEAKER) (test 84 mL/min/1.73 sq m ESTIMATED GFR IS NOT qxao=8334) ACCURATE CREATININE CLEARANCE IN PREDICTING GLOMERULAR FILTRATION RATE. ESTIMATED GFR IS NOT APPLICABLE FOR DIALYSIS PATIENTS. FastingLIPID [id number] 05:58:00 Test Item Value Reference Range Comments TRIGLYCERIDES (BEAKER) (test fbfd=170) 88 mg/dL CHOLESTEROL (BEAKER) (test ebqh=838) 169 mg/dL HDL CHOLESTEROL (BEAKER) (test hgiv=663) 37 mg/dL LDL CHOLESTEROL CALCULATED (BEAKER) (test 114 mg/dL gxmu=902) Triglyceride Reference Range: Low Risk <150 Borderline 150- 199 High Risk 200-499 Very High Risk >=500Cholesterol Reference Range: Low Risk <200 Borderline 200-239 High Risk > 240HDL Cholesterol Reference Range: Low Risk >=60 High Risk <40LDL Cholesterol Reference Range: Optimal <100 Near Optimal 100-129 Borderline 130-159 High 160-189 Very High >=190 FastingCBC W/PLT COUNT & AUTO [id number] 05:32:00 Test Item Value Reference Range Comments WHITE BLOOD CELL COUNT (BEAKER) (test llcc=331) 6.3 K/ L 3.5-10.5 RED BLOOD CELL COUNT (BEAKER) (test prto=729) 4.70 M/ L 4.63-6.08 HEMOGLOBIN (BEAKER) (test sgsh=311) 14.9 GM/DL 13.7-17.5 HEMATOCRIT (BEAKER) (test omsj=630) 43.0 % 40.1-51.0 MEAN CORPUSCULAR VOLUME (BEAKER) (test zsqb=780) 91.5 fL 79.0-92.2 MEAN CORPUSCULAR HEMOGLOBIN (BEAKER) (test 31.7 pg 25.7-32.2 xryi=109) MEAN CORPUSCULAR HEMOGLOBIN CONC (BEAKER) (test 34.7 GM/DL 32.3-36.5 vzcl=382) RED CELL DISTRIBUTION WIDTH (BEAKER) (test 12.2 % 11.6-14.4 wypp=036) PLATELET COUNT (BEAKER) (test phwr=042) 182 K/CU MM 150-450 MEAN PLATELET VOLUME (BEAKER) (test wzjy=801) 9.8 fL 9.4-12.4 NUCLEATED RED BLOOD CELLS (BEAKER) (test 0 /100 WBC 0-0 puht=592) NEUTROPHILS RELATIVE PERCENT (BEAKER) (test 71 % aicu=984) LYMPHOCYTES RELATIVE PERCENT (BEAKER) (test 15 % vpbc=399) MONOCYTES RELATIVE PERCENT (BEAKER) (test 10 % hymb=496) EOSINOPHILS RELATIVE PERCENT (BEAKER) (test 3 % njjz=709) BASOPHILS RELATIVE PERCENT (BEAKER) (test 1 % mjxz=881) NEUTROPHILS ABSOLUTE COUNT (BEAKER) (test 4.50 K/ L 1.78-5.38 pfut=227) LYMPHOCYTES ABSOLUTE COUNT (BEAKER) (test 0.92 K/ L 1.32-3.57 ruhn=518) MONOCYTES ABSOLUTE COUNT (BEAKER) (test 0.63 K/ L 0.30-0.82 viyx=836) EOSINOPHILS ABSOLUTE COUNT (BEAKER) (test 0.18 K/ L 0.04-0.54 zhli=105) BASOPHILS ABSOLUTE COUNT (BEAKER) (test 0.04 K/ L 0.01-0.08 fgsx=574) IMMATURE GRANULOCYTES-RELATIVE PERCENT (BEAKER) 1 % 0-1 (test pqsi=1956) HEMOGLOBIN [id number] 13:39:00 Test Item Value Reference Range Comments HEMOGLOBIN A1C (BEAKER) (test yiku=965) 5.4 % 4.3-6.1 TSH/FREE T4 IF [id number] 09:59:00 Test Item Value Reference Range Comments THYROID STIMULATING HORMONE (BEAKER) (test 0.97 uIU/mL 0.35-4.94 eoti=528) VITAMIN B12 AND [id number] 09:59:00 Test Item Value Reference Range Comments VITAMIN B12 (BEAKER) (test srbh=751) 516 pg/mL 213-816 FOLATE (BEAKER) (test ajic=427) 15.4 ng/mL >=7.0 TROPONIN [id number] 09:34:00 Test Item Value Reference Range Comments TROPONIN I (BEAKER) (test hogo=206) 0.01 ng/mL 0.00-0.03 Troponin I (TnI) levels [...] acute neurological disease, and persistent tachyarrhythmia.BASIC METABOLIC [id number] 09:29:00 Test Item Value Reference Range Comments SODIUM (BEAKER) (test 140 meq/L 136-145 iaei=797) POTASSIUM (BEAKER) (test 4.2 meq/L 3.5-5.1 Specimen slightly mbeo=728) hemolyzed CHLORIDE (BEAKER) (test 110 meq/L 98-107 emba=511) CO2 (BEAKER) (test 24 meq/L 22-29 asie=895) BLOOD UREA NITROGEN 18 mg/dL 7-21 (BEAKER) (test hvgz=895) CREATININE (BEAKER) (test 0.79 mg/dL 0.57-1.25 Specimen slightly xify=388) hemolyzed GLUCOSE RANDOM (BEAKER) 118 mg/dL 70-105 (test ifnv=922) CALCIUM (BEAKER) (test 8.8 mg/dL 8.4-10.2 qjbw=493) EGFR (BEAKER) (test 100 mL/min/1.73 sq m ESTIMATED GFR IS NOT urai=8368) ACCURATE CREATININE CLEARANCE IN PREDICTING GLOMERULAR FILTRATION RATE. ESTIMATED GFR IS NOT APPLICABLE FOR DIALYSIS PATIENTS. LIPID [id number] 09:29:00 Test Item Value Reference Range Comments TRIGLYCERIDES (BEAKER) (test 63 mg/dL Specimen slightly hemolyzed umiz=268) CHOLESTEROL (BEAKER) (test 151 mg/dL Specimen slightly hemolyzed bmic=226) HDL CHOLESTEROL (BEAKER) (test 34 mg/dL fboo=378) LDL CHOLESTEROL CALCULATED 104 mg/dL (BEAKER) (test qqzn=429) Triglyceride Reference Range: Low Risk <150 Borderline 150- 199 High Risk 200-499 Very High Risk >=500Cholesterol Reference Range: Low Risk <200 Borderline 200-239 High Risk > 240HDL Cholesterol Reference Range: Low Risk >=60 High Risk <40LDL Cholesterol Reference Range: Optimal <100 Near Optimal 100-129 Borderline 130-159 High 160-189 Very High >=190HEPATIC FUNCTION [id number] 09:29:00 Test Item Value Reference Range Comments TOTAL PROTEIN (BEAKER) (test 6.4 gm/dL 6.0-8.3 Specimen slightly hemolyzed zruu=741) ALBUMIN (BEAKER) (test 4.0 g/dL 3.5-5.0 Specimen slightly hemolyzed myvp=2851) BILIRUBIN TOTAL (BEAKER) (test 0.5 mg/dL 0.2-1.2 Specimen slightly hemolyzed czau=468) BILIRUBIN DIRECT (BEAKER) (test 0.2 mg/dL 0.1-0.5 Specimen slightly hemolyzed yeml=156) ALKALINE PHOSPHATASE (BEAKER) 48 U/L 40-150 (test fhjb=980) AST (SGOT) (BEAKER) (test 27 U/L 5-34 Specimen slightly hemolyzed ypuu=277) ALT (SGPT) (BEAKER) (test 20 U/L 6-55 Specimen slightly hemolyzed uxcd=924) CBC W/PLT COUNT & AUTO [id number] 09:05:00 Test Item Value Reference Range Comments WHITE BLOOD CELL COUNT (BEAKER) (test qrim=362) 4.2 K/ L 3.5-10.5 RED BLOOD CELL COUNT (BEAKER) (test cdbm=477) 4.44 M/ L 4.63-6.08 HEMOGLOBIN (BEAKER) (test qztx=716) 13.9 GM/DL 13.7-17.5 HEMATOCRIT (BEAKER) (test niwu=753) 41.1 % 40.1-51.0 MEAN CORPUSCULAR VOLUME (BEAKER) (test slem=062) 92.6 fL 79.0-92.2 MEAN CORPUSCULAR HEMOGLOBIN (BEAKER) (test 31.3 pg 25.7-32.2 khvk=018) MEAN CORPUSCULAR HEMOGLOBIN CONC (BEAKER) (test 33.8 GM/DL 32.3-36.5 qhgc=586) RED CELL DISTRIBUTION WIDTH (BEAKER) (test 12.0 % 11.6-14.4 fiya=675) PLATELET COUNT (BEAKER) (test cofb=990) 168 K/CU MM 150-450 MEAN PLATELET VOLUME (BEAKER) (test vwsc=780) 10.0 fL 9.4-12.4 NUCLEATED RED BLOOD CELLS (BEAKER) (test 0 /100 WBC 0-0 vfoi=573) NEUTROPHILS RELATIVE PERCENT (BEAKER) (test 71 % cpbt=262) LYMPHOCYTES RELATIVE PERCENT (BEAKER) (test 17 % kbfz=745) MONOCYTES RELATIVE PERCENT (BEAKER) (test 9 % vgkx=128) EOSINOPHILS RELATIVE PERCENT (BEAKER) (test 2 % afiz=025) BASOPHILS RELATIVE PERCENT (BEAKER) (test 1 % soej=605) NEUTROPHILS ABSOLUTE COUNT (BEAKER) (test 3.01 K/ L 1.78-5.38 imhr=977) LYMPHOCYTES ABSOLUTE COUNT (BEAKER) (test 0.72 K/ L 1.32-3.57 ijae=201) MONOCYTES ABSOLUTE COUNT (BEAKER) (test 0.40 K/ L 0.30-0.82 xakd=888) EOSINOPHILS ABSOLUTE COUNT (BEAKER) (test 0.07 K/ L 0.04-0.54 zjce=868) BASOPHILS ABSOLUTE COUNT (BEAKER) (test 0.03 K/ L 0.01-0.08 yxwc=396) IMMATURE GRANULOCYTES-RELATIVE PERCENT (BEAKER) 0 % 0-1 (test igza=0277)
[2018-05-25] MEDS ORDERED: Ringers Lactate 1,000 ML IV ONE (07:56)
[2018-05-25] MEDS ORDERED: CEFAZOLIN/SWI 1gm 1 GM/10 ML SYR ONE (07:56)
[2018-05-25] MEDS ORDERED: PROPOFOL 200 MG/20 ML VIAL IV ONE (08:47)
[2018-05-25] MEDS ORDERED: FENTANYL CITR 100 MCG/2 ML ONE (08:47)
[2018-05-25] MEDS ORDERED: MIDAZOLAM HCL 2 MG/2 ML INJ ONE (08:47)
[2018-05-25] MEDS ORDERED: ONDANSETRON 4 MG/2 ML VIAL ONE (08:48)
[2018-05-25] MEDS ORDERED: LIDOCAINE 2% MPF 5 ML VIAL ONE (08:48)
[2018-05-25] MEDS ORDERED: BUPIVACAINE 0.5% PF 10 ML VIAL ONE (09:38)
--- NOTE | 2018-05-25 09:38 | P.BOP ---
Preoperative diagnosis: tender subcutaneus mass infected Postoperative diagnosis: same Primary procedure: Excisional biopsy of tender subcutaneus mass 4x4 cm Estimated blood loss: <5cc Specimen: mass Findings: as above Anesthesia: General Complications: None Transferred to: Recovery Room Condition: Good
[2018-05-25 10:38] VITALS: TEMP 97.7
[2018-05-25 10:52] VITALS: BP 128/68; O2SAT 97
--- NOTE | 2018-05-25 21:00 | OP ---
Date of Procedure: 05/25/2018 Surgeon: Shon Tarango MD Preoperative Diagnosis: Tender infected subcutaneous back mass. Postoperative Diagnosis: Tender infected subcutaneous back mass. Procedure: Excisional biopsy of tender subcutaneous back mass, 4 x 4 cm. Anesthesia: General plus local. Indications: This is a case of a 63-year-old patient, who comes to us with a tender erythematous mas s. It was more erythematous some time ago, improved a little with a collar, and he was sent to us fo r excision. The benefits, alternatives, and risks of excision were fully explained, which included b ut are not limited to infection, bleeding, damage to adjacent structures, anesthesia complication, re currence of cellulitis, UT, even . He also understands this may not relieve his symptoms. He m ight need more than one surgical intervention. Even though the erythema had resolved, he might proba valeria have some pus and I told him that I may have to leave it open to do wet-to-dry dressing, although he preferred to have it closed. We are going to irrigate the area. If we do not find any pus then we are going to close this one and give him some antibiotics. Procedure In Detail: The patient was brought to the operating room, placed in supine position. Anes thesia was done without complication. The patient was placed in lateral decubitus position with prop er protection. The back area was prepped and draped in sterile fashion. Local anesthesia was applie d following a wedge incision of the skin and the area that he had previously marked in the holding ar ea. Incision was carried down to deep subcutaneous tissue. Mass was excised. I did not find any pu s, so I irrigated the area profusely obtaining hemostasis and proceeded to close this in layers with 0 in the deep layers, 0 chromic in mid layers, and then 3-0 nylon in the superficial skin. The patie nt tolerated the procedure well. The area was covered with sterile dressings. The patient was sent to Recovery in stable condition. Sponge co unt and instrument counts were correct. HM/MODL Voice ID: [id number] Report ID: [id number]
--- NOTE | 2018-05-25 21:09 | DS ---
Date of Discharge: 05/25/2018 Diagnosis: Tender subcutaneous infected back mass. Procedure: Excisional biopsy of tender subcutaneous mass. Disposition: Home. Discharge Instructions: Activity as tolerated. No lifting. Follow up in my office in 1 week. Call for appointment [phone]. Medication: Include Bactrim DS b.i.d. and Tylenol No. 3 q.4 hours p.r.n. pain. ABEL/SAW Voice ID: [id number] Report ID: [id number]
--- NOTE | 2018-05-26 10:30 | EKG ---
Test Date: 2018-05-24 Test Time: 15:07:16 Steam Train Driver: KRISTIN MEASUREMENT RESULTS: Intervals: Rate: 56 NM: 162 QRSD: 98 QT: 422 QTc: 407 [place]: P: 52 NM: 162 QRS: 18 T: 46 INTERPRETIVE STATEMENTS: Sinus bradycardia Otherwise normal ECG Compared to ECG 11/26/2017 09:59:18 No significant changes Electronically Signed On 05-25-18 08:10:12 CDT by Olu Rossi
== END 2018-05-25 10:57 | disposition home or self-care (01) ==
LOC: OR 06:57
PROVIDERS: ATTEND Surgery
PROC: 0JB70ZX Excision of Back Subcutaneous Tissue and Fascia, Open Approach, Diagnostic (ICD-10-PCS; principal; 2018-05-25 08:15)
DX: L72.0 Epidermal cyst (principal); E78.00 Pure hypercholesterolemia, unspecified; I10 Essential (primary) hypertension; Z79.899 Other long term (current) drug therapy
CPT/HCPCS: 36415; 71046; 80048; 85025; 88304; 93005; J0690; J2250; J2405; J2704; J3010

== ENCOUNTER 2019-02-20 07:21 | Day surgery (SDC) | payer OTHER ==
--- NOTE | 2019-02-16 16:45 | RAD REPORT ---
EXAM DESCRIPTION: Lacy Zapien (2 Views)02/16/2019 3:55 pm CLINICAL HISTORY: Preop for hernia repair COMPARISON: May 2018 FINDINGS: The lungs are mildly hyperaerated The lungs appear clear of acute infiltrate. The heart is normal size IMPRESSION: No acute abnormalities displayed
[2019-02-16 16:51] LABS: Absolute Lymphocytes (CBC) 0.8 K/uL (0.7-4.9); Basophils % 1.3 % (0-1.3); Hematocrit 39.4 % (39.6-49.0); Lymphocytes % 20.1 % (15.3-44.8); MPV 9.4 fL (7.6-11.3); RBC Red Blood Cell Count 4.27 M/uL (4.33-5.43)
[2019-02-16 17:14] LABS: BUN Blood Urea Nitrogen 20 mg/dL (7-18); Bicarbonate 31 mmol/L (21-32); Glucose Level 94 mg/dL (74-106); Potassium 4.2 mmol/L (3.5-5.1); Sodium Level 145 mmol/L (136-145)
--- NOTE | 2019-02-16 22:54 | EKG ---
Test Date: 2019-02-16 Test Time: 15:23:18 [employer]er: KRISTIN MEASUREMENT RESULTS: Intervals: Rate: 49 [place]: 168 QRSD: 92 QT: 442 QTc: 399 [place]: P: 53 [place]: 168 QRS: 53 T: 60 INTERPRETIVE STATEMENTS: Marked sinus bradycardia Abnormal ECG Compared to ECG 05/24/2018 15:07:16 No significant changes Electronically Signed On 02-16-19 22:53:22 CARD BOXER by Olu Rossi
--- OUTSIDE RECORDS SUMMARY | 2019-02-20 07:24 | XMS REPORT ---
:1955 Author Organization [facility] Address [address] [place] [address] Dr. Frausto [address] [place] [address] Care Team Providers Name Role Phone JENNIFER [...] Reference Range Comments PROTEIN, URINE (BEAKER) (test vpzx=9382) < mg/dL 0-14 ALBUMIN URINE ELP (BEAKER) (test 45.9 % qaet=4358) GAMMA GLOBULIN URINE (BEAKER) (test 54.1 % gevd=1580) UPEP, ID-438 (BEAKER) (test rlxl=3732) Normal UPEP with no proteinuria. FPLV-PFTEOANDSXN-778 (BEAKER) (test Dariana Francois MD (electronic rbss=5839) signature) PROTEIN ELECTROPHORESIS, [id number] 14:18:00 Test Item Value Reference Range Comments ALBUMIN FRACTION (BEAKER) 4.0 g/dL 3.5-5.5 (test duov=434) ALPHA 1 FRACTION (BEAKER) 0.3 g/dL 0.2-0.4 (test fxfr=874) ALPHA 2 FRACTION (BEAKER) 0.5 g/dL 0.5-0.9 (test hcxt=350) BETA FRACTION (BEAKER) 0.8 g/dL 0.6-1.1 (test oajh=728) GAMMA GLOBULIN FRACTION 1.0 g/dL 0.7-1.7 (BEAKER) (test satn=583) INTERPRETATION-119 (BEAKER) Normal electrophoretic pattern. (test rqpo=9022) [id number] Dariana Francois MD (electronic (BEAKER) (test ufth=6158) signature) PROTEIN TOTAL SERUM, SPEP 6.5 gm/dL 6.0-8.3 (BEAKER) (test tget=5874) ANTI-NUCLEAR ANTIBODY (OLENA)2017-11-29 10:04:00 Test Item Value Reference Range Comments ANTI-NUCLEAR ANTIBODY (OLENA) (BEAKER) (test Negative Negative kerq=904) Test performed by IFA method.Test performed by IFA method.[id number] 05:18:00 Test Item Value Reference Range Comments RPR SCREEN (BEAKER) (test ndea=855) Nonreactive Nonreactive MR, BRAIN, WITHOUT [id number] 13:18:00FINAL REPORT MRI brain Comparison: Head CT [...] Verified Date /Time: 11/27/2017 13:18:28 Reading Location: [facility] C013V Neuro Reading Room Electronically signed by: CANELO ARTEAGA M.D. on11/27/2017 01:18 PMHEMOGLOBIN [id number] 08:57:00 Test Item Value Reference Range Comments HEMOGLOBIN A1C (BEAKER) (test yarb=667) 5.4 % 4.3-6.1 VITAMIN B12 AND [id number] 08:48:00 Test Item Value Reference Range Comments VITAMIN B12 (BEAKER) (test qsfv=981) 577 pg/mL 213-816 FOLATE (BEAKER) (test jetu=140) 15.2 ng/mL >=7.0 [id number] 06:49:00 Test Item Value Reference Range Comments PHOSPHORUS (BEAKER) (test lcud=512) 3.6 mg/dL 2.3-4.7 [id number] 06:49:00 Test Item Value Reference Range Comments MAGNESIUM (BEAKER) (test xkjb=088) 2.2 mg/dL 1.6-2.6 BASIC METABOLIC [id number] 06:49:00 Test Item Value Reference Range Comments SODIUM (BEAKER) (test 140 meq/L 136-145 raud=840) POTASSIUM (BEAKER) (test 4.0 meq/L 3.5-5.1 ucxa=581) CHLORIDE (BEAKER) (test 107 meq/L 98-107 kepr=843) CO2 (BEAKER) (test 26 meq/L 22-29 hebc=740) BLOOD UREA NITROGEN 16 mg/dL 7-21 (BEAKER) (test wvyi=561) CREATININE (BEAKER) (test 0.99 mg/dL 0.57-1.25 wbwf=362) GLUCOSE RANDOM (BEAKER) 98 mg/dL 70-105 (test snzb=570) CALCIUM (BEAKER) (test 9.6 mg/dL 8.4-10.2 pble=514) EGFR (BEAKER) (test 77 mL/min/1.73 sq m ESTIMATED GFR IS NOT txqk=6399) ACCURATE CREATININE CLEARANCE IN PREDICTING GLOMERULAR FILTRATION RATE. ESTIMATED GFR IS NOT APPLICABLE FOR DIALYSIS PATIENTS. LIPID [id number] 06:49:00 Test Item Value Reference Range Comments TRIGLYCERIDES (BEAKER) (test xlqg=623) 72 mg/dL CHOLESTEROL (BEAKER) (test tsxk=756) 103 mg/dL HDL CHOLESTEROL (BEAKER) (test rezf=218) 32 mg/dL LDL CHOLESTEROL CALCULATED (BEAKER) (test 57 mg/dL hbnl=945) Triglyceride Reference Range: Low Risk <150 Borderline 150- 199 High Risk 200-499 Very High Risk >=500Cholesterol Reference Range: Low Risk <200 Borderline 200-239 High Risk > 240HDL Cholesterol Reference Range: Low Risk >=60 High Risk <40LDL Cholesterol Reference Range: Optimal <100 Near Optimal 100-129 Borderline 130-159 High 160-189 Very High >=190CALCIUM, [id number] 06:23:00 Test Item Value Reference Range Comments CALCIUM IONIZED (BEAKER) (test gutw=679) 1.16 mmol/L 1.12-1.27 PH, BLOOD (BEAKER) (test endo=1490) 7.37 CBC W/PLT COUNT & AUTO [id number] 06:17:00 Test Item Value Reference Range Comments WHITE BLOOD CELL COUNT (BEAKER) (test zwnl=610) 6.3 K/ L 3.5-10.5 RED BLOOD CELL COUNT (BEAKER) (test ypvv=631) 4.82 M/ L 4.63-6.08 HEMOGLOBIN (BEAKER) (test kerh=409) 15.0 GM/DL 13.7-17.5 HEMATOCRIT (BEAKER) (test fpcb=335) 44.9 % 40.1-51.0 MEAN CORPUSCULAR VOLUME (BEAKER) (test mjsb=084) 93.2 fL 79.0-92.2 MEAN CORPUSCULAR HEMOGLOBIN (BEAKER) (test 31.1 pg 25.7-32.2 kqnx=396) MEAN CORPUSCULAR HEMOGLOBIN CONC (BEAKER) (test 33.4 GM/DL 32.3-36.5 evgf=024) RED CELL DISTRIBUTION WIDTH (BEAKER) (test 11.9 % 11.6-14.4 vklr=408) PLATELET COUNT (BEAKER) (test vkvs=850) 165 K/CU MM 150-450 MEAN PLATELET VOLUME (BEAKER) (test advf=029) 10.2 fL 9.4-12.4 NUCLEATED RED BLOOD CELLS (BEAKER) (test 0 /100 WBC 0-0 nusp=830) NEUTROPHILS RELATIVE PERCENT (BEAKER) (test 69 % mzoz=695) LYMPHOCYTES RELATIVE PERCENT (BEAKER) (test 17 % gbks=723) MONOCYTES RELATIVE PERCENT (BEAKER) (test 11 % tiqo=237) EOSINOPHILS RELATIVE PERCENT (BEAKER) (test 2 % octr=917) BASOPHILS RELATIVE PERCENT (BEAKER) (test 1 % oiqq=248) NEUTROPHILS ABSOLUTE COUNT (BEAKER) (test 4.36 K/ L 1.78-5.38 vtfo=921) LYMPHOCYTES ABSOLUTE COUNT (BEAKER) (test 1.08 K/ L 1.32-3.57 mkox=246) MONOCYTES ABSOLUTE COUNT (BEAKER) (test 0.66 K/ L 0.30-0.82 bnms=898) EOSINOPHILS ABSOLUTE COUNT (BEAKER) (test 0.15 K/ L 0.04-0.54 enes=133) BASOPHILS ABSOLUTE COUNT (BEAKER) (test 0.04 K/ L 0.01-0.08 kvss=010) IMMATURE GRANULOCYTES-RELATIVE PERCENT (BEAKER) 0 % 0-1 (test obwf=8184) MR, MRA, BRAIN, WITHOUT [id number] 12:18:00Reason for exam:-> StrokeWhat is the patient's sedation requirement?->No SedationFINAL REPORT MRA Head CLINICAL HISTORY: Stroke TECHNIQUE: MRA of the head utilizing 3-D qlet-oy-xgsnnd technique, with 3-D reconstructions. COMPARISON: None FINDINGS: There is noevidence of intracranial aneurysm, focal stenosis, or major branch vessel occlusion. There are bilateral posterior communicating arteries. IMPRESSION: No evidence for a major [place] proximal branch vessel occlusion. MRA Neck CLINICAL HISTORY: Stroke TECHNIQUE : MRA of the neck utilizing 2-D and 3-D tuac-sj-airagu technique, with 3-D reconstructions. COMPARISON: None FINDINGS: The carotidarteries in the neck are patent including their bifurcations. There is antegrade flow in the vertebral arteries in the neck. IMPRESSION: No evidence of hemodynamically significant stenosis in the cervical carotid or vertebral arteries by NASCET criteria. Signed: America King MDReport Verified Date/Time: 05/28/2017 12:18: 08 Reading Location: [address] Neuro Reading Room MR, MRA, NECK, WITHOUT IV [id number] 12:18:00FINAL REPORT MRA Head CLINICAL HISTORY: Stroke TECHNIQUE: MRA of the head utilizing 3-D time-of- flight technique, with 3-D reconstructions. COMPARISON: None FINDINGS: There is noevidence of intracranial aneurysm, focal stenosis, or major branch vessel occlusion. There are bilateral posterior communicating arteries. IMPRESSION: No evidence for a major [place] proximal branch vessel occlusion. MRA Neck CLINICAL HISTORY: Stroke TECHNIQUE: MRA of the neck utilizing 2-D and 3 -D ivxu-de-gwdxea technique, with 3-D reconstructions. COMPARISON: None FINDINGS : The carotidarteries in the neck are patent including their bifurcations. There is antegrade flow in the vertebral arteries in the neck. IMPRESSION: No evidence of hemodynamically significant stenosis in the cervical carotid or vertebral arteries by NASCET criteria. Signed: America King Verified Date/Time: 05/28/2017 12:18:08 Reading Location: [address] Neuro Reading Room MR, BRAIN, WITHOUT [id number] 11:48:00Reason for exam:->Strokepost- tpa scanWhat is the [...] King VerifiedDate/Time: 05/28/2017 11:48:29 Reading Location : [address] Neuro Reading Room [id number] 09:59:00 Test Item Value Reference Range Comments RPR SCREEN (BEAKER) (test kmem=756) Nonreactive Nonreactive CT, BRAIN, WITHOUT [id number] 07:58:00FINAL REPORT CT Head without contrast CLINICAL [...] Verified Date/Time : 05/28/2017 07:58:27 Reading Location: [facility] C013V Neuro Reading Room [id number] 05:58:00 Test Item Value Reference Range Comments PHOSPHORUS (BEAKER) (test hbbx=569) 3.0 mg/dL 2.3-4.7 [id number] 05:58:00 Test Item Value Reference Range Comments MAGNESIUM (BEAKER) (test pgpu=723) 2.1 mg/dL 1.6-2.6 FastingBASIC METABOLIC [id number] 05:58:00 Test Item Value Reference Range Comments SODIUM (BEAKER) (test 141 meq/L 136-145 wudy=421) POTASSIUM (BEAKER) (test 4.0 meq/L 3.5-5.1 fwyc=577) CHLORIDE (BEAKER) (test 108 meq/L 98-107 zinu=693) CO2 (BEAKER) (test 24 meq/L 22-29 bjpg=589) BLOOD UREA NITROGEN 17 mg/dL 7-21 (BEAKER) (test keuq=209) CREATININE (BEAKER) (test 0.92 mg/dL 0.57-1.25 dnsu=518) GLUCOSE RANDOM (BEAKER) 128 mg/dL 70-105 (test kfit=036) CALCIUM (BEAKER) (test 9.6 mg/dL 8.4-10.2 xxcy=016) EGFR (BEAKER) (test 84 mL/min/1.73 sq m ESTIMATED GFR IS NOT wlxw=6840) ACCURATE CREATININE CLEARANCE IN PREDICTING GLOMERULAR FILTRATION RATE. ESTIMATED GFR IS NOT APPLICABLE FOR DIALYSIS PATIENTS. FastingLIPID [id number] 05:58:00 Test Item Value Reference Range Comments TRIGLYCERIDES (BEAKER) (test umel=956) 88 mg/dL CHOLESTEROL (BEAKER) (test srzo=838) 169 mg/dL HDL CHOLESTEROL (BEAKER) (test huat=270) 37 mg/dL LDL CHOLESTEROL CALCULATED (BEAKER) (test 114 mg/dL wujn=937) Triglyceride Reference Range: Low Risk <150 Borderline 150- 199 High Risk 200-499 Very High Risk >=500Cholesterol Reference Range: Low Risk <200 Borderline 200-239 High Risk > 240HDL Cholesterol Reference Range: Low Risk >=60 High Risk <40LDL Cholesterol Reference Range: Optimal <100 Near Optimal 100-129 Borderline 130-159 High 160-189 Very High >=190 FastingCBC W/PLT COUNT & AUTO [id number] 05:32:00 Test Item Value Reference Range Comments WHITE BLOOD CELL COUNT (BEAKER) (test uuqi=290) 6.3 K/ L 3.5-10.5 RED BLOOD CELL COUNT (BEAKER) (test ubmz=998) 4.70 M/ L 4.63-6.08 HEMOGLOBIN (BEAKER) (test pxwr=070) 14.9 GM/DL 13.7-17.5 HEMATOCRIT (BEAKER) (test nvkq=743) 43.0 % 40.1-51.0 MEAN CORPUSCULAR VOLUME (BEAKER) (test labz=937) 91.5 fL 79.0-92.2 MEAN CORPUSCULAR HEMOGLOBIN (BEAKER) (test 31.7 pg 25.7-32.2 esct=934) MEAN CORPUSCULAR HEMOGLOBIN CONC (BEAKER) (test 34.7 GM/DL 32.3-36.5 jzxb=431) RED CELL DISTRIBUTION WIDTH (BEAKER) (test 12.2 % 11.6-14.4 igom=890) PLATELET COUNT (BEAKER) (test flzw=174) 182 K/CU MM 150-450 MEAN PLATELET VOLUME (BEAKER) (test dyvk=127) 9.8 fL 9.4-12.4 NUCLEATED RED BLOOD CELLS (BEAKER) (test 0 /100 WBC 0-0 slce=138) NEUTROPHILS RELATIVE PERCENT (BEAKER) (test 71 % jxap=791) LYMPHOCYTES RELATIVE PERCENT (BEAKER) (test 15 % gtlc=467) MONOCYTES RELATIVE PERCENT (BEAKER) (test 10 % pvnh=109) EOSINOPHILS RELATIVE PERCENT (BEAKER) (test 3 % nybf=008) BASOPHILS RELATIVE PERCENT (BEAKER) (test 1 % ccut=360) NEUTROPHILS ABSOLUTE COUNT (BEAKER) (test 4.50 K/ L 1.78-5.38 uhlj=701) LYMPHOCYTES ABSOLUTE COUNT (BEAKER) (test 0.92 K/ L 1.32-3.57 mkmt=889) MONOCYTES ABSOLUTE COUNT (BEAKER) (test 0.63 K/ L 0.30-0.82 nrre=862) EOSINOPHILS ABSOLUTE COUNT (BEAKER) (test 0.18 K/ L 0.04-0.54 stqq=964) BASOPHILS ABSOLUTE COUNT (BEAKER) (test 0.04 K/ L 0.01-0.08 fkhx=637) IMMATURE GRANULOCYTES-RELATIVE PERCENT (BEAKER) 1 % 0-1 (test hrym=7923) HEMOGLOBIN [id number] 13:39:00 Test Item Value Reference Range Comments HEMOGLOBIN A1C (BEAKER) (test rhmk=102) 5.4 % 4.3-6.1 TSH/FREE T4 IF [id number] 09:59:00 Test Item Value Reference Range Comments THYROID STIMULATING HORMONE (BEAKER) (test 0.97 uIU/mL 0.35-4.94 osqi=075) VITAMIN B12 AND [id number] 09:59:00 Test Item Value Reference Range Comments VITAMIN B12 (BEAKER) (test sxrj=105) 516 pg/mL 213-816 FOLATE (BEAKER) (test jyza=260) 15.4 ng/mL >=7.0 TROPONIN [id number] 09:34:00 Test Item Value Reference Range Comments TROPONIN I (BEAKER) (test yxod=814) 0.01 ng/mL 0.00-0.03 Troponin I (TnI) levels [...] acute neurological disease, and persistent tachyarrhythmia.BASIC METABOLIC [id number] 09:29:00 Test Item Value Reference Range Comments SODIUM (BEAKER) (test 140 meq/L 136-145 swer=027) POTASSIUM (BEAKER) (test 4.2 meq/L 3.5-5.1 Specimen slightly uavj=280) hemolyzed CHLORIDE (BEAKER) (test 110 meq/L 98-107 jwpt=969) CO2 (BEAKER) (test 24 meq/L 22-29 lcft=548) BLOOD UREA NITROGEN 18 mg/dL 7-21 (BEAKER) (test hmyq=030) CREATININE (BEAKER) (test 0.79 mg/dL 0.57-1.25 Specimen slightly vwcv=146) hemolyzed GLUCOSE RANDOM (BEAKER) 118 mg/dL 70-105 (test epee=911) CALCIUM (BEAKER) (test 8.8 mg/dL 8.4-10.2 xtel=492) EGFR (BEAKER) (test 100 mL/min/1.73 sq m ESTIMATED GFR IS NOT exws=2656) ACCURATE CREATININE CLEARANCE IN PREDICTING GLOMERULAR FILTRATION RATE. ESTIMATED GFR IS NOT APPLICABLE FOR DIALYSIS PATIENTS. LIPID [id number] 09:29:00 Test Item Value Reference Range Comments TRIGLYCERIDES (BEAKER) (test 63 mg/dL Specimen slightly hemolyzed xwbd=948) CHOLESTEROL (BEAKER) (test 151 mg/dL Specimen slightly hemolyzed xvie=394) HDL CHOLESTEROL (BEAKER) (test 34 mg/dL ujgz=843) LDL CHOLESTEROL CALCULATED 104 mg/dL (BEAKER) (test jsvq=154) Triglyceride Reference Range: Low Risk <150 Borderline 150- 199 High Risk 200-499 Very High Risk >=500Cholesterol Reference Range: Low Risk <200 Borderline 200-239 High Risk > 240HDL Cholesterol Reference Range: Low Risk >=60 High Risk <40LDL Cholesterol Reference Range: Optimal <100 Near Optimal 100-129 Borderline 130-159 High 160-189 Very High >=190HEPATIC FUNCTION [id number] 09:29:00 Test Item Value Reference Range Comments TOTAL PROTEIN (BEAKER) (test 6.4 gm/dL 6.0-8.3 Specimen slightly hemolyzed zudm=572) ALBUMIN (BEAKER) (test 4.0 g/dL 3.5-5.0 Specimen slightly hemolyzed efsq=1796) BILIRUBIN TOTAL (BEAKER) (test 0.5 mg/dL 0.2-1.2 Specimen slightly hemolyzed mweb=312) BILIRUBIN DIRECT (BEAKER) (test 0.2 mg/dL 0.1-0.5 Specimen slightly hemolyzed otts=163) ALKALINE PHOSPHATASE (BEAKER) 48 U/L 40-150 (test mpmb=811) AST (SGOT) (BEAKER) (test 27 U/L 5-34 Specimen slightly hemolyzed epip=739) ALT (SGPT) (BEAKER) (test 20 U/L 6-55 Specimen slightly hemolyzed mqxw=816) CBC W/PLT COUNT & AUTO [id number] 09:05:00 Test Item Value Reference Range Comments WHITE BLOOD CELL COUNT (BEAKER) (test zdtf=213) 4.2 K/ L 3.5-10.5 RED BLOOD CELL COUNT (BEAKER) (test xlmn=136) 4.44 M/ L 4.63-6.08 HEMOGLOBIN (BEAKER) (test jnhh=754) 13.9 GM/DL 13.7-17.5 HEMATOCRIT (BEAKER) (test hhfd=153) 41.1 % 40.1-51.0 MEAN CORPUSCULAR VOLUME (BEAKER) (test tazd=255) 92.6 fL 79.0-92.2 MEAN CORPUSCULAR HEMOGLOBIN (BEAKER) (test 31.3 pg 25.7-32.2 syed=623) MEAN CORPUSCULAR HEMOGLOBIN CONC (BEAKER) (test 33.8 GM/DL 32.3-36.5 sumi=533) RED CELL DISTRIBUTION WIDTH (BEAKER) (test 12.0 % 11.6-14.4 zoft=550) PLATELET COUNT (BEAKER) (test itoo=670) 168 K/CU MM 150-450 MEAN PLATELET VOLUME (BEAKER) (test lenc=075) 10.0 fL 9.4-12.4 NUCLEATED RED BLOOD CELLS (BEAKER) (test 0 /100 WBC 0-0 yfog=295) NEUTROPHILS RELATIVE PERCENT (BEAKER) (test 71 % bthc=093) LYMPHOCYTES RELATIVE PERCENT (BEAKER) (test 17 % nbqi=932) MONOCYTES RELATIVE PERCENT (BEAKER) (test 9 % sgaw=411) EOSINOPHILS RELATIVE PERCENT (BEAKER) (test 2 % rlmk=177) BASOPHILS RELATIVE PERCENT (BEAKER) (test 1 % qkvq=932) NEUTROPHILS ABSOLUTE COUNT (BEAKER) (test 3.01 K/ L 1.78-5.38 jnet=477) LYMPHOCYTES ABSOLUTE COUNT (BEAKER) (test 0.72 K/ L 1.32-3.57 dolh=853) MONOCYTES ABSOLUTE COUNT (BEAKER) (test 0.40 K/ L 0.30-0.82 gred=555) EOSINOPHILS ABSOLUTE COUNT (BEAKER) (test 0.07 K/ L 0.04-0.54 dytg=464) BASOPHILS ABSOLUTE COUNT (BEAKER) (test 0.03 K/ L 0.01-0.08 zvam=974) IMMATURE GRANULOCYTES-RELATIVE PERCENT (BEAKER) 0 % 0-1 (test mbuv=8252)
[2019-02-20] MEDS ORDERED: CEFAZOLIN/SWI 1gm 1 GM/10 ML SYR ONE (07:26)
[2019-02-20] MEDS ORDERED: Ringers Lactate 1,000 ML IV ONE ×2 (07:26→11:01)
[2019-02-20] MEDS ORDERED: ROCURONIUM 50 MG/5 ML VIAL IV ONE (07:59)
[2019-02-20] MEDS ORDERED: FENTANYL CITR 100 MCG/2 ML ONE (07:59)
[2019-02-20] MEDS ORDERED: LIDOCAINE 2% MPF 5 ML VIAL ONE (07:59)
[2019-02-20] MEDS ORDERED: propofoL 200 MG/20 ML VIAL IV ONE (07:59)
[2019-02-20] MEDS ORDERED: MIDAZOLAM HCL 2 MG/2 ML INJ ONE (08:00)
[2019-02-20] MEDS ORDERED: LIDOCAINE JELLY 2%- 5 ML TUBE ONE (08:00)
[2019-02-20] MEDS ORDERED: ONDANSETRON 4 MG/2 ML VIAL ONE (08:02)
[2019-02-20] MEDS ORDERED: ATROPINE SULF 1 MG/10 ML SYR IV ONE (09:07)
[2019-02-20] MEDS ORDERED: GLYCOPYRROLATE 0.2 MG/ML SYR ONE ×2 (09:07→09:16)
[2019-02-20] MEDS ORDERED: NEOSTIGMINE 1 MG/ML -5 ML ONE (09:14)
--- NOTE | 2019-02-20 09:30 | P.BOP ---
Preoperative diagnosis: right femoral hernia Postoperative diagnosis: right femoral hernia and right inguinal hernia Primary procedure: Laparoscopic repair right femoral hernia and right inguinal hernia withmesh Underwriting Assistant: Stephanie Sarmiento) Estimated blood loss: <10cc Specimen: none Findings: right femoral hernia and right direct inguinal hernia Anesthesia: General Complications: None Implants: medium 3d mesh Transferred to: Recovery Room Condition: Good
[2019-02-20] MEDS: HYDROMORPHONE HCL 1 MG/ML INJ ONE ×6 (09:33→09:53)
[2019-02-20] MEDS: MEPERIDINE HCL 25 MG/0.5 ML ONE ×2 (09:55→10:03)
[2019-02-20] MEDS ORDERED: CODEINE 30MG/APAP 300MG TAB ONE (11:01)
[2019-02-20 14:07] VITALS: BP 116/63; TEMP 98.9; O2SAT 99
[2019-02-20] MEDS ORDERED: TAMSULOSIN 0.4 MG SR CAP PO ONE (16:00)
--- NOTE | 2019-02-22 21:07 | OP ---
Date of Procedure: 02/20/2019 Surgeon: Shon Tarango MD Hose Cementer: Stephanie Dominguez. Preoperative Diagnosis: Right femoral hernia. Postoperative Diagnosis: Right femoral hernia and right inguinal hernia. Procedure: Laparoscopic repair of right femoral and right inguinal hernia with mesh. Findings: Right femoral hernia, right direct inguinal hernia. Anesthesia: General plus local. Implants: Medium 3D mesh. Indications: This is the case of a 63-year-old patient with right femoral possible inguinal hernia. Benefits, alternatives, and risks of repair, laparoscopic versus open repair with mesh were fully ex plained to the patient, which include but are not limited to infection, bleeding, damage to adjacent structures, anesthesia complication, recurrence, chronic pain, chronic numbness, [place], even . He also understands this may not relieve any symptoms, he might need more than one surgical intervention . He understands mesh placement in that area. Pros and cons of mesh were fully explained to him and he was allowed to ask questions, all were answered to his satisfaction and he consented for the use of mesh. Description Of Procedure: The patient was brought to the operating room, placed in supine position. A time-out was called. Abdomen and inguinal area were prepped and draped in a sterile fashion. Loc al anesthetic was applied followed by incision in the infraumbilical region. Incision was carried do wn until we found the anterior rectus sheath. This was done on the right side. The muscle retracted laterally to expose the posterior rectus sheath. The extraperitoneal space was gently developed wit h the use of blunt dissection and the balloon-tipped trocar pacemaker directed towards the pubic symp hysis. A laparoscope was placed in the area. The balloon was inflated under direct visualization. This allowed me to create the extraperitoneal space. Balloon was then removed under direct visualiza tion. Area was insufflated. A 5 mm trocar was placed just above the pubic symphysis and another one snf between the first and the second one. The preperitoneal space was further developed by expo sing the inferior epigastric vessels, keeping them anterior. Macho ligament was dissected laterally to the junction with the iliac veins. Dissection continued inferiorly to the iliopubic tract, avoid ing damage to the femoral branch of the genitofemoral nerve and lateral femoral cutaneous nerve. The cord structures were carefully visualized. We noticed the patient has 2 hernias, small femoral teo ia and a small direct inguinal hernia and with laparoscope we can visualize those and both of them we re reduced and the hernia sac was reduced back into the peritoneal space. The area was al so reduced after being examined. With the hernia sac reduced into the peritoneal cavity, then I proc eeded to use a 3D mesh and place it through the trocar site. The mesh was placed along the inferior aspect of the preperitoneal space. It was overall in place to completely cover direct, indirect, and femoral spaces where the hernias were. The mesh was secured in place laterally and superior to the iliopubic tract, inferior and medial to the Macho ligament. Local anesthetic was sprayed over the a ricky. Hernia sac still reduced into the peritoneal cavity by holding the mesh in place. We proceeded to carefully remove the insufflation and allowed the cavity to go back to normal position. Trocars were removed. Anterior rectus sheath was closed with #1 Vicryl, and then the skin was approximated. Sponge count and instrument counts were correct. Patient tolerated the procedure well. At the end of the case, the testicles were in the scrotum. Patient was sent to recovery in stable condition. Disposition: Home. Activity: As tolerated. No heavy lifting. Followup: Follow up in my office in 1 week. Call for appointment, [phone]. Keep area dry for 48 h ours, then may shower. Cold compresses of the right inguinal region for 24 hours. ABEL/SAW Voice ID: [id number] Report ID: [id number]
== END 2019-02-20 16:20 | disposition home or self-care (01) ==
LOC: OR 07:21
PROVIDERS: ATTEND Surgery
PROC: 0YU74JZ Supplement Right Femoral Region with Synthetic Substitute, Percutaneous Endoscopic Approach (ICD-10-PCS; 2019-02-20)
PROC: 0YU54JZ Supplement Right Inguinal Region with Synthetic Substitute, Percutaneous Endoscopic Approach (ICD-10-PCS; principal; 2019-02-20 08:30)
DX: K41.90 Unilateral femoral hernia, without obstruction or gangrene, not specified as recurrent (principal); K40.90 Unilateral inguinal hernia, without obstruction or gangrene, not specified as recurrent; I10 Essential (primary) hypertension; E78.5 Hyperlipidemia, unspecified; Z83.3 Family history of diabetes mellitus; Z82.49 Family history of ischemic heart disease and other diseases of the circulatory system; Z80.0 Family history of malignant neoplasm of digestive organs; Z80.3 Family history of malignant neoplasm of breast
CPT/HCPCS: 93005; 85025; 80048; 36415; 71046; 49650; 49659; J2704; J2250; J3010; J2175; J1170 ×2; J2710; J0690; J7120 ×2; J2405

== ENCOUNTER 2020-01-24 19:25 | Emergency (ER) | payer OTHER ==
--- OUTSIDE RECORDS SUMMARY | 2020-01-24 19:27 | XMS REPORT | Summary of Care ---
:1955 Author Organization [facility] Address [address] [place] [address] Care Team Providers Name Role Phone Unavailable Primary Care Provider Unavailable Reason for Visit Reason Comments Fever x 5 days Diarrhea states PCP is aware Encounter Details Date Type Department Care Team Description 01/22/2020 Laboratory Only [facility] Family SergioOlive, AGRICULTURE MANAGER [id number] [place] [address] Exposure to Medicine - [facility], Adc Fam Pob I SARS-associated [address] [place] [address] coronaviru s ([address] Dx) [place] [address] Allergies Not on Filedocumented as of this encounter (statuses as of 01/22/2020) Medications Not on filedocumented as of this encounter (statuses as of 01/22/2020) Active Problems Not on filedocumented as of this encounter (statuses as of 01/22/2020) Social History Tobacco Use Types Packs/Day Years Used Date Never Assessed Sex Assigned at Date Recorded Not on file COVID-19 Exposure Response Date Recorded In the last month, have you been in contact with No / Unsure 01/22/2020 3:50 PM STATISTICAL CLERK someone who was confirmed or suspected to have Coronavirus / COVID-19? documented as of this encounter Last Filed Vital Signs Not on filedocumented in this encounter Nursing Notes Yadira Das, MARI - 01/22/2020 3:40 PM CSTRussell Machado is a 64 year old male here for a Rule Out Covid-19 Nasopharyngeal Swab. Patient educated on plan of care for visit, swabbing technique, risks and benefits of test and length of time to receive results. Verbal consent obtained to perform test. CDC Fact Sheet for Patients provided to patient. All droplet and contact precautions taken with appropriate PPE worn while interacting with patient. - Goggles - N95 Mask - Gloves - Gown RR=18 % O2 Sat=97% at RA Patient swabbed using appropriate nasopharyngeal technique, and patient tolerated well. Patient was discharged in stable condition. Yadira Johansen RN 01/22/2020 3:51 PM ISTICAL CLERK documented in this encounter Plan of Treatment Name Type Priority Associated Diagnoses Order S erniedumehnaz COVID-19 (MOLECULAR LAB Routine Exposure to Expected : 01/22/2020, TESTING SARS-associated Expires: 021 NUCLEIC ACID coronavirus AMPLIFICATION) Health Maintenance Due Date Last Done Comments HEPATITIS C (HCV) SCREEN 1955 Depression Screening 1968 DTaP,Tdap,and Td Vaccines (1 - 1975 Tdap) COLON CANCER SCREENING ANNUAL 2006 FIT/FOBT COLON CANCER SCREENING FIT DNA 2006 EVERY 3 YEARS COLON CANCER SCREENING 2006 SIGMOIDOSCOPY EVERY 5 YEARS COLONOSCOPY 2006 Colorectal Cancer Screening 2006 Zoster Recombinant Vaccine 2006 (SHINGRIX) (1 of 2) INFLUENZA VACCINE (#1) 2020 Postponed from 11/14/2019 (Patient Ill Tod ay) PNEUMOCOCCAL 0-64 YEARS COMBINED Aged Out No longer eligible based on SERIES patient's age to complete this topic documented as of this encounter Results Not on filedocumented in this encounter Visit Diagnoses Diagnosis Exposure to SARS-associated coronavirus - Primary documented in this encounter Additional Health Concerns Infection Onset Date Last Indicated Resolved Time COVID-19 Rule Out 01/22/2020 01/22/2020 documented as of this encounter documented as of this encounter
--- OUTSIDE RECORDS SUMMARY | 2020-01-24 19:27 | XMS REPORT | Clinical Summary ---
:1955 Author Organization [facility] Address [address] [place] [address] Care Team Providers Name Role Phone MD Claire Primary Care Provider Allergies Active Allergy Reactions Severity Noted Date Comments Lisinopril Other (See Comments) 05/27/2017 Medications Medication Sig Dispensed Refills Start Date End Date Status valsartan (DIOVAN) 160 Take 80 mg by 0 Active MG tablet mouth daily . fenofibric acid, Take 135 mg by 0 Active choline, 135 mg mouth daily. capsule aspirin 81 MG chewable Take 1 tablet (81 90 tablet 1 8 Active tablet mg total) by mouth daily. Additional Information Patient taking differently: 81 mg Oral 2 times daily, Reported on 11/26/2017 5:45 PM atorvastatin (LIPITOR) 40 MG Take 1 tablet (40 mg 90 tablet 1 05/28/2017 Active tablet total) by mouth nightly. losartan (COZAAR) 25 MG Take 25 mg by mouth 0 Active tablet daily. Active Problems Problem Noted Date Hypertension 11/26/2017 High triglycerides 11/26/2017 Neuropathy 11/26/2017 Acute ischemic stroke 05/27/2017 Stroke 05/27/2017 Social History Tobacco Use Types Packs/Day Years Used Date Never Smoker Alcohol Use Drinks/Week oz/Week Comments No Sex Assigned at Date Recorded Not on file Last Filed Vital Signs Not on file Plan of Treatment Health Maintenance Due Date Last Done Comments INFLUENZA VACCINE (#1) 2019 LIPID PANEL 11/27/2020 11/27/2017, 05/28/2017, 05/27/2017 COLON CANCER SCREENING COLONOSCOPY 10/22/2026 10/22/2016 Results Not on fileafter 01/23/2019 Insurance Payer Benefit Plan / Subscriber ID Effective Dates Phone Addre ss Type Group AETNA - MGD AETNA HMO POS [id number] 2009-Present HMO/POS CARE QPOS [id number] (Work) Advance Directives For more information, please contact: [phone] Code Status Date Activated Date Inactivated Comments Full Code 11/26/2017 8:29 PM 11/27/2017 7:41 PM This code status was determined by: Patient Full Code 05/27/2017 8:01 AM 05/28/2017 5:04 PM This code status was determined by: Patient Full Code 05/27/2017 7:48 AM 05/27/2017 7:51 AM This code status was determined by: Patient
--- OUTSIDE RECORDS SUMMARY | 2020-01-24 19:27 | XMS REPORT | Continuity of Care Document ---
:1955 Author Organization [facility] t Address [address] [place] [address] Care Team Providers Name Role Phone Claire HIGHTOWER Primary Care Physician Lab, Fam Pob I Attending Clinician Unavailable DAVID Attending Clinician Unavailable MARISA MADDOX Attending Clinician Unavailable DAVID Admitting Clinician Unavailable MARISA MADDOX Admitting Clinician Unavailable Problems Condition Condition Condition Status Onset Resolution Last Treating Co mments Source Name Details Category Date Date Treatment Clinician Date Hypertensi Hypertensi Disease Active [facility] [place] High High Disease Active [facility] triglyceri triglyceri 11-26 Brenda kes - ra[facility] raven 00:00: Medical 00 [place] Neuropathy Neuropathy Disease Active [facility] [place] Acute Acute Disease Active [facility] ischemic ischemic 05-27 [facility] - stroke stroke 00:00: Medical 00 [place] Stroke Stroke Disease Active [facility] [place] Allergies, Adverse Reactions, Alerts Allergy Allergy Status Severity Reaction(s) Onset Inactive Treating Comm ents Source Name Type Date Date Clinician Lisinopr Drug Active Other (See [facility] 00 [place] Social History Social Habit Start Date Stop Date Quantity Comments Source Sex Assigned At [facility] Alcohol intake 2017-11-26 2017-11-[address] [facility] - 00:[facility]:00 00:00:00 non-drinker of Medical Ce nter alcohol (finding) Smoking Status Start Date Stop Date Source Never sm[facility] Medications Ordered Filled Start Stop Current Ordering Indication Dosage Frequency Signature Comments Components Source Medication Medication Date Date Medication? Clinician (SIG) Name Name valsartan 0 Yes 80mg QD Take [address] (DIOVAN) 9-15 by mouth [facility] - 160 MG 17:41: daily . Medical tablet 45 Center fenofibric Yes 135mg QD Take [address] acid, 9-15 mg by [facility] - choline, 17:41: mouth Medical 135 mg 45 daily. Center capsule losartan Yes 25mg QD Take [address] (COZAAR) 25 9-15 by mouth [facility] - MG tablet 17:41: daily. Medica l 45 Center aspirin 81 Yes 81mg QD Take 1 [facility] MG chewable 3-17 tablet (81 Brenda kes - tablet 00:00: mg total) Medica l 00 by mouth Center daily. atorvastati Yes 40mg QD Take [address] [facility] (LIPITOR) 3-16 tablet (40 Brenda kes - 40 MG 00:00: mg total) Medical tablet 00 by mouth Center nightly. Procedures This patient has no known procedures. Plan of Care Planned Activity Planned Date Details Comments Source Future Scheduled 2026-10-[address] [facility] - Test 00:00:00 malignant neoplasm Medical C enter of colon (procedure) [code = 257863976] Future Scheduled 2020-11-[address] [facility] - Test 00:00:00 (procedure) [code = [facility] [id number]] Future Scheduled 2019-11-[address] [facility] - Test 00:00:00 (#1) [code = [facility] INFLUENZA VACCINE (#1)] Encounters Start End Encounter Admission Attending Care Care Encounter Source Date/Time Date/Time Type Type Clinicians Facility Department ID 2020-01-22 2020-01-22 Laboratory Lab, Adc [facility] [id number] 15:33:42 15:53:42 Only [facility] [id number] [place] [id number] Professio [phone] nal [address] Results Test Description Test Time Test Comments Results Result Comments Source URINE PROTEIN ELECTROPHORESIS, RANDOM 2017-11-29 14:30:00 Test Item Value Reference Range Interpretation Comme nts PROTEIN, URINE (BEAKER) (test code = < mg/dL 0-14 1569) ALBUMIN URINE ELP (BEAKER) (test code 45.9 % = 1018) GAMMA GLOBULIN URINE (BEAKER) (test 54.1 % code = 1015) UPEP, ID-438 (BEAKER) (test code = Normal UPEP with no proteinuria. 2604) [id number] (BEAKER) (test Dariana Francois MD (electronic code = 6561) signature) PROTEIN ELECTROPHORESIS, [id number] 14:18:00 Test Item Value Reference Range Interpretation Comments ALBUMIN FRACTION 4.0 g/dL 3.5-5.5 (BEAKER) (test code = 405) ALPHA 1 FRACTION 0.3 g/dL 0.2-0.4 (BEAKER) (test code = 389) ALPHA 2 FRACTION 0.5 g/dL 0.5-0.9 (BEAKER) (test code = 390) BETA FRACTION 0.8 g/dL 0.6-1.1 (BEAKER) (test code = 392) GAMMA GLOBULIN 1.0 g/dL 0.7-1.7 FRACTION (BEAKER) (test code = 391) INTERPRETATION-119 Normal electrophoretic (BEAKER) (test code pattern. = 2615) [id number] Dariana Francois MD 9 (BEAKER) (test (electronic signature) code = 2616) PROTEIN TOTAL 6.5 gm/dL 6.0-8.3 SERUM, SPEP (BEAKER) (test code = 2660) ANTI-NUCLEAR ANTIBODY (OLENA)2017-11-29 10:04:00 Test Item Value Reference Range Interpretation Comments ANTI-NUCLEAR ANTIBODY (OLENA) (BEAKER) Negative Negative (test code = 418) Test performed by IFA method.Test performed by IFA method.[id number] 05:18:00 Test Item Value Reference Range Interpretation Comments RPR SCREEN (BEAKER) (test code = Nonreactive Nonreactive 420) MR, BRAIN, WITHOUT [id number] 13:18:00FINAL REPORT MRI brain Comparison: Head CT [...] . Impressions: Negative cranial MRI. Signed: Canelo Lott Verified Date/Time: 11/27/2017 13:18:28 Reading Location: [facility] Neuro Reading Room Electronically signed by: CANELO LOTT M.D. on11/27/2017 01:18 PM HEMOGLOBIN [id number] 08:57:00 Test Item Value Reference Range Interpretation Comments HEMOGLOBIN A1C (BEAKER) (test code = 5.4 % 4.3-6.1 368) VITAMIN B12 AND [id number] 08:48:00 Test Item Value Reference Range Interpretation Comments VITAMIN B12 (BEAKER) (test code = 577 pg/mL 213-816 774) FOLATE (BEAKER) (test code = 362) 15.2 ng/mL >=7.0 [id number] 06:49:00 Test Item Value Reference Range Interpretation Comments PHOSPHORUS (BEAKER) (test code = 3.6 mg/dL 2.3-4.7 604) [id number] 06:49:00 Test Item Value Reference Range Interpretation Comments MAGNESIUM (BEAKER) (test code = 2.2 mg/dL 1.6-2.6 627) BASIC METABOLIC [id number] 06:49:00 Test Item Value Reference Range Interpretation Comments SODIUM (BEAKER) 140 meq/L 136-145 (test code = 381) POTASSIUM (BEAKER) 4.0 meq/L 3.5-5.1 (test code = 379) CHLORIDE (BEAKER) 107 meq/L 98-107 (test code = 382) CO2 (BEAKER) (test 26 meq/L 22-29 code = 355) BLOOD UREA NITROGEN 16 mg/dL 7-21 (BEAKER) (test code = 354) CREATININE (BEAKER) 0.99 mg/dL 0.57-1.25 (test code = 358) GLUCOSE RANDOM 98 mg/dL 70-105 (BEAKER) (test code = 652) CALCIUM (BEAKER) 9.6 mg/dL 8.4-10.2 (test code = 697) EGFR (BEAKER) (test 77 mL/min/1.73 ESTIMA ANN MARIE GFR IS code = 1092) sq m NOT ACCURATE CREATININE CLEARANCE IN PREDICTING GLOMERULAR FILTRATION RATE . ESTIMATED GFR I S NOT APPLICABLE FOR DIALYSIS PATIEN TS. LIPID [id number] 06:49:00 Test Item Value Reference Range Interpretation Comments TRIGLYCERIDES (BEAKER) (test code = 72 mg/dL 540) CHOLESTEROL (BEAKER) (test code = 103 mg/dL 631) HDL CHOLESTEROL (BEAKER) (test code 32 mg/dL = 976) LDL CHOLESTEROL CALCULATED (BEAKER) 57 mg/dL (test code = 633) Triglyceride Reference Range: Low Risk <150 Borderline 150-199 High Risk 200-499 Very High Risk >=500Cholesterol Reference Range: Low Risk <200 Borderline 200-239 High Risk >240HDL Cholesterol Reference Range: Low Risk >=60 High Risk <40LDL Cholesterol Reference Range: Optimal <100 Near Optimal 100-129 Borderline 130-159 High 160-189 Very High >=190CALCIUM, [id number] 06:23:00 Test Item Value Reference Range Interpretation Comments CALCIUM IONIZED (BEAKER) (test 1.16 mmol/L 1.12-1.27 code = 698) PH, BLOOD (BEAKER) (test code = 7.37 1810) CBC W/PLT COUNT & AUTO [id number] 06:17:00 Test Item Value Reference Range Interpretation Comments WHITE BLOOD CELL COUNT (BEAKER) 6.3 K/ L 3.5-10.5 (test code = 775) RED BLOOD CELL COUNT (BEAKER) 4.82 M/ L 4.63-6.08 (test code = 761) HEMOGLOBIN (BEAKER) (test code = 15.0 GM/DL 13.7-17.5 410) HEMATOCRIT (BEAKER) (test code = 44.9 % 40.1-51.0 411) MEAN CORPUSCULAR VOLUME (BEAKER) 93.2 fL 79.0-92.2 H (test code = 753) MEAN CORPUSCULAR HEMOGLOBIN 31.1 pg 25.7-32.2 (BEAKER) (test code = 751) MEAN CORPUSCULAR HEMOGLOBIN CONC 33.4 GM/DL 32.3-36.5 (BEAKER) (test code = 752) RED CELL DISTRIBUTION WIDTH 11.9 % 11.6-14.4 (BEAKER) (test code = 412) PLATELET COUNT (BEAKER) (test 165 K/CU MM 150-450 code = 756) MEAN PLATELET VOLUME (BEAKER) 10.2 fL 9.4-12.4 (test code = 754) NUCLEATED RED BLOOD CELLS 0 /100 WBC 0-0 (BEAKER) (test code = 413) NEUTROPHILS RELATIVE PERCENT 69 % (BEAKER) (test code = 429) LYMPHOCYTES RELATIVE PERCENT 17 % (BEAKER) (test code = 430) MONOCYTES RELATIVE PERCENT 11 % (BEAKER) (test code = 431) EOSINOPHILS RELATIVE PERCENT 2 % (BEAKER) (test code = 432) BASOPHILS RELATIVE PERCENT 1 % (BEAKER) (test code = 437) NEUTROPHILS ABSOLUTE COUNT 4.36 K/ L 1.78-5.38 (BEAKER) (test code = 670) LYMPHOCYTES ABSOLUTE COUNT 1.08 K/ L 1.32-3.57 L (BEAKER) (test code = 414) MONOCYTES ABSOLUTE COUNT (BEAKER) 0.66 K/ L 0.30-0.82 (test code = 415) EOSINOPHILS ABSOLUTE COUNT 0.15 K/ L 0.04-0.54 (BEAKER) (test code = 416) BASOPHILS ABSOLUTE COUNT (BEAKER) 0.04 K/ L 0.01-0.08 (test code = 417) IMMATURE GRANULOCYTES-RELATIVE 0 % 0-1 PERCENT (BEAKER) (test code = 2801) MR, MRA, BRAIN, WITHOUT [id number] 12:18:00Reason for exam:- >StrokeWhat is the patient's sedation requirement?->No SedationFINAL REPORT MRA Head CLINICAL HISTORY: Stroke TECHNIQUE: MRA of the head utilizing 3-D qyck-js-tiugau technique, with 3-D reconstructions. COMPARISON: None FINDINGS: There is noevidence of intracranial aneurysm, focal stenosis, or major branch vessel occlusion. There are bilateral posterior communicating arteries. IMPRESSION: No evidence for a major bill moore's slough of [place] proximal branch vessel occlusion. MRA Neck CLINICAL HISTORY: Stroke TECHNIQUE: MRA of the neck utilizing 2-D and 3-D szyc-mt-wtmtyw technique, with 3-D reconstructions. COMPARISON: None FINDINGS: The carotidarteries in the neck are patent including their bifurcations. There is antegrade flow in the vertebral arteries in the neck. IMPRESSION: No evidence of hemodynamically significant stenosis in the cervical carotid or vertebral arteries by NASCET criteria. Signed: America King Verified Date/Time: 05/28/2017 12:18:08 Reading Location: [address] Neuro Reading Room MR, MRA, NECK, WITHOUT IV [id number] 12:18:00FINAL REPORT MRA Head CLINICAL HISTORY: Stroke TECHNIQUE: MRA of the head utilizing 3-D pnrp-tf-rwjqfr technique, with 3-D reconstructions. COMPARISON: None FINDINGS: There is noevidence of intracranial aneurysm, focal stenosis, or major branch vessel occlusion. There are bila teral posterior communicating arteries. IMPRESSION: No evidence for a major bill moore's slough of [place] proximal branch vessel occlusion. MRA Neck CLINICAL HISTORY: Stroke TECHNIQUE: MRA of the neck utilizing 2-D and 3-D qygy-wu-suqhlb technique, with 3-D reconstructions. COMPARISON: None FINDINGS: The carotid arteries in the neck are patent including their bifurcations. There is antegrade flow in the vertebral arteries in the neck. IMPRESSION: No evidence of hemodynamically significant stenosis in the cervical carotid or vertebral arteries by NASCET criteria. Signed: America King Verified Date/Time: 05/28/2017 12:18:08 Reading Location: [facility] Neuro Reading Room MR, BRAIN, WITHOUT [id number] 11:48:00Reason for exam:->Strokepost-tpa scanWhat is the patient's sedation requirement?->No SedationFINAL [...] venous anomaly. This may be confirmed with gadolinium- enhanced imaging if clinically warranted. Signed: America King MDReport VerifiedDate/Time: 05/28/2017 11:48:29 Reading Location: [facility] C013V Neuro Reading Room [id number] 09:59:00 Test Item Value Reference Range Interpretation Comments RPR SCREEN (BEAKER) (test code = Nonreactive Nonreactive 420) CT, BRAIN, WITHOUT [id number] 07:58:00FINAL REPORT CT Head without contrast CLINICAL [...] volume loss without hydrocephalus, midline shift, or ap parent mass effect. There are no extra-axial fluid collections. The skull is intact. The visualized paranasal sinuses are well-aerated. IMPRESSION: No CT evidence of acute infarct, hemorrhage, or hydrocephalus. Signed: America King MDReport Verified Date/Time: 05/28/2017 07:58:27 Reading Location: [facility] Neuro Reading Room [id number] 05:58:00 Test Item Value Reference Range Interpretation Comments PHOSPHORUS (BEAKER) (test code = 3.0 mg/dL 2.3-4.7 604) [id number] 05:58:00 Test Item Value Reference Range Interpretation Comments MAGNESIUM (BEAKER) (test code = 2.1 mg/dL 1.6-2.6 627) FastingBASIC METABOLIC [id number] 05:58:00 Test Item Value Reference Range Interpretation Comments SODIUM (BEAKER) 141 meq/L 136-145 (test code = 381) POTASSIUM (BEAKER) 4.0 meq/L 3.5-5.1 (test code = 379) CHLORIDE (BEAKER) 108 meq/L 98-107 H (test code = 382) CO2 (BEAKER) (test 24 meq/L 22-29 code = 355) BLOOD UREA NITROGEN 17 mg/dL 7-21 (BEAKER) (test code = 354) CREATININE (BEAKER) 0.92 mg/dL 0.57-1.25 (test code = 358) GLUCOSE RANDOM 128 mg/dL 70-105 H (BEAKER) (test code = 652) CALCIUM (BEAKER) 9.6 mg/dL 8.4-10.2 (test code = 697) EGFR (BEAKER) (test 84 mL/min/1.73 ESTIMA ANN MARIE GFR IS code = 1092) sq m NOT ACCURATE CREATININE CLEARANCE IN PREDICTING GLOMERULAR FILTRATION RATE . ESTIMATED GFR I S NOT APPLICABLE FOR DIALYSIS PATIEN TS. FastingLIPID [id number] 05:58:00 Test Item Value Reference Range Interpretation Comments TRIGLYCERIDES (BEAKER) (test code = 88 mg/dL 540) CHOLESTEROL (BEAKER) (test code = 169 mg/dL 631) HDL CHOLESTEROL (BEAKER) (test code 37 mg/dL = 976) LDL CHOLESTEROL CALCULATED (BEAKER) 114 mg/dL (test code = 633) Triglyceride Reference Range: Low Risk <150 Borderline 150-199 High Risk 200-499 Very High Risk >=500Cholesterol Reference Range: Low Risk <200 Borderline 200-239 High Risk >240HDL Cholesterol Reference Range: Low Risk >=60 High Risk <40LDL Cholesterol Reference Range: Optimal <100 Near Optimal 100-129 Borderline 130-159 High 160-189 Very High >=190 FastingCBC W/PLT COUNT & AUTO [id number] 05:32:00 Test Item Value Reference Range Interpretation Comments WHITE BLOOD CELL COUNT (BEAKER) 6.3 K/ L 3.5-10.5 (test code = 775) RED BLOOD CELL COUNT (BEAKER) 4.70 M/ L 4.63-6.08 (test code = 761) HEMOGLOBIN (BEAKER) (test code = 14.9 GM/DL 13.7-17.5 410) HEMATOCRIT (BEAKER) (test code = 43.0 % 40.1-51.0 411) MEAN CORPUSCULAR VOLUME (BEAKER) 91.5 fL 79.0-92.2 (test code = 753) MEAN CORPUSCULAR HEMOGLOBIN 31.7 pg 25.7-32.2 (BEAKER) (test code = 751) MEAN CORPUSCULAR HEMOGLOBIN CONC 34.7 GM/DL 32.3-36.5 (BEAKER) (test code = 752) RED CELL DISTRIBUTION WIDTH 12.2 % 11.6-14.4 (BEAKER) (test code = 412) PLATELET COUNT (BEAKER) (test 182 K/CU MM 150-450 code = 756) MEAN PLATELET VOLUME (BEAKER) 9.8 fL 9.4-12.4 (test code = 754) NUCLEATED RED BLOOD CELLS 0 /100 WBC 0-0 (BEAKER) (test code = 413) NEUTROPHILS RELATIVE PERCENT 71 % (BEAKER) (test code = 429) LYMPHOCYTES RELATIVE PERCENT 15 % (BEAKER) (test code = 430) MONOCYTES RELATIVE PERCENT 10 % (BEAKER) (test code = 431) EOSINOPHILS RELATIVE PERCENT 3 % (BEAKER) (test code = 432) BASOPHILS RELATIVE PERCENT 1 % (BEAKER) (test code = 437) NEUTROPHILS ABSOLUTE COUNT 4.50 K/ L 1.78-5.38 (BEAKER) (test code = 670) LYMPHOCYTES ABSOLUTE COUNT 0.92 K/ L 1.32-3.57 L (BEAKER) (test code = 414) MONOCYTES ABSOLUTE COUNT (BEAKER) 0.63 K/ L 0.30-0.82 (test code = 415) EOSINOPHILS ABSOLUTE COUNT 0.18 K/ L 0.04-0.54 (BEAKER) (test code = 416) BASOPHILS ABSOLUTE COUNT (BEAKER) 0.04 K/ L 0.01-0.08 (test code = 417) IMMATURE GRANULOCYTES-RELATIVE 1 % 0-1 PERCENT (BEAKER) (test code = 2801) HEMOGLOBIN [id number] 13:39:00 Test Item Value Reference Range Interpretation Comments HEMOGLOBIN A1C (BEAKER) (test code = 5.4 % 4.3-6.1 368) TSH/FREE T4 IF [id number] 09:59:00 Test Item Value Reference Range Interpretation Comments THYROID STIMULATING HORMONE 0.97 uIU/mL 0.35-4.94 (BEAKER) (test code = 772) VITAMIN B12 AND [id number] 09:59:00 Test Item Value Reference Range Interpretation Comments VITAMIN B12 (BEAKER) (test code = 516 pg/mL 213-816 774) FOLATE (BEAKER) (test code = 362) 15.4 ng/mL >=7.0 TROPONIN [id number] 09:34:00 Test Item Value Reference Range Interpretation Comments TROPONIN I (BEAKER) (test code = 0.01 ng/mL 0.00-0.03 397) Troponin I (TnI) levels must be interpreted [...] acute neurological disease, and persistent tachyarrhythmia.BASIC METABOLIC [id number] 09:29:00 Test Item Value Reference Range Interpretation Comments SODIUM (BEAKER) 140 meq/L 136-145 (test code = 381) POTASSIUM (BEAKER) 4.2 meq/L 3.5-5.1 Specimen slightly (test code = 379) hemolyzed CHLORIDE (BEAKER) 110 meq/L 98-107 H (test code = 382) CO2 (BEAKER) (test 24 meq/L 22-29 code = 355) BLOOD UREA NITROGEN 18 mg/dL 7-21 (BEAKER) (test code = 354) CREATININE (BEAKER) 0.79 mg/dL 0.57-1.25 Specimen slightly (test code = 358) hemolyzed GLUCOSE RANDOM 118 mg/dL 70-105 H (BEAKER) (test code = 652) CALCIUM (BEAKER) 8.8 mg/dL 8.4-10.2 (test code = 697) EGFR (BEAKER) (test 100 mL/min/1.73 ESTIM ATED GFR IS code = 1092) sq m NOT ACCURATE CREATININE CLEARANCE IN PREDICTING GLOMERULAR FILTRATION RATE . ESTIMATED GFR I S NOT APPLICABLE FOR DIALYSIS PATIEN TS. LIPID [id number] 09:29:00 Test Item Value Reference Range Interpretation Comments TRIGLYCERIDES (BEAKER) 63 mg/dL Speci men slightly (test code = 540) hemolyzed CHOLESTEROL (BEAKER) 151 mg/dL Specime n slightly (test code = 631) hemolyzed HDL CHOLESTEROL (BEAKER) 34 mg/dL (test code = 976) LDL CHOLESTEROL 104 mg/dL CALCULATED (BEAKER) (test code = 633) Triglyceride Reference Range: Low Risk <150 Borderline 150-199 High Risk 200-499 Very High Risk >=500Cholesterol Reference Range: Low Risk <200 Borderline 200-239 High Risk >240HDL Cholesterol Reference Range: Low Risk >=60 High Risk <40LDL Cholesterol Reference Range: Optimal <100 Near Optimal 100-129 Borderline 130-159 High 160-189 Very High >=190HEPATIC FUNCTION [id number] 09:29:00 Test Item Value Reference Range Interpretation Comments TOTAL PROTEIN (BEAKER) 6.4 gm/dL 6.0-8.3 Speci men slightly (test code = 770) hemolyzed ALBUMIN (BEAKER) (test 4.0 g/dL 3.5-5.0 Speci men slightly code = 1145) hemolyzed BILIRUBIN TOTAL 0.5 mg/dL 0.2-1.2 Specimen sli ghtly (BEAKER) (test code = hemoly zed 377) BILIRUBIN DIRECT 0.2 mg/dL 0.1-0.5 Specimen sl ightly (BEAKER) (test code = hemoly zed 706) ALKALINE PHOSPHATASE 48 U/L 40-150 (BEAKER) (test code = 346) AST (SGOT) (BEAKER) 27 U/L 5-34 Specimen slightly (test code = 353) hemolyzed ALT (SGPT) (BEAKER) 20 U/L 6-55 Specimen slightly (test code = 347) hemolyzed CBC W/PLT COUNT & AUTO [id number] 09:05:00 Test Item Value Reference Range Interpretation Comments WHITE BLOOD CELL COUNT (BEAKER) 4.2 K/ L 3.5-10.5 (test code = 775) RED BLOOD CELL COUNT (BEAKER) 4.44 M/ L 4.63-6.08 L (test code = 761) HEMOGLOBIN (BEAKER) (test code = 13.9 GM/DL 13.7-17.5 410) HEMATOCRIT (BEAKER) (test code = 41.1 % 40.1-51.0 411) MEAN CORPUSCULAR VOLUME (BEAKER) 92.6 fL 79.0-92.2 H (test code = 753) MEAN CORPUSCULAR HEMOGLOBIN 31.3 pg 25.7-32.2 (BEAKER) (test code = 751) MEAN CORPUSCULAR HEMOGLOBIN CONC 33.8 GM/DL 32.3-36.5 (BEAKER) (test code = 752) RED CELL DISTRIBUTION WIDTH 12.0 % 11.6-14.4 (BEAKER) (test code = 412) PLATELET COUNT (BEAKER) (test 168 K/CU MM 150-450 code = 756) MEAN PLATELET VOLUME (BEAKER) 10.0 fL 9.4-12.4 (test code = 754) NUCLEATED RED BLOOD CELLS 0 /100 WBC 0-0 (BEAKER) (test code = 413) NEUTROPHILS RELATIVE PERCENT 71 % (BEAKER) (test code = 429) LYMPHOCYTES RELATIVE PERCENT 17 % (BEAKER) (test code = 430) MONOCYTES RELATIVE PERCENT 9 % (BEAKER) (test code = 431) EOSINOPHILS RELATIVE PERCENT 2 % (BEAKER) (test code = 432) BASOPHILS RELATIVE PERCENT 1 % (BEAKER) (test code = 437) NEUTROPHILS ABSOLUTE COUNT 3.01 K/ L 1.78-5.38 (BEAKER) (test code = 670) LYMPHOCYTES ABSOLUTE COUNT 0.72 K/ L 1.32-3.57 L (BEAKER) (test code = 414) MONOCYTES ABSOLUTE COUNT (BEAKER) 0.40 K/ L 0.30-0.82 (test code = 415) EOSINOPHILS ABSOLUTE COUNT 0.07 K/ L 0.04-0.54 (BEAKER) (test code = 416) BASOPHILS ABSOLUTE COUNT (BEAKER) 0.03 K/ L 0.01-0.08 (test code = 417) IMMATURE GRANULOCYTES-RELATIVE 0 % 0-1 PERCENT (BEAKER) (test code = 2809)
[2020-01-24 20:51] LABS: Urine Blood NEGATIVE (NEG); Urine Glucose NEGATIVE (NEG); Urine Protein NEGATIVE (NEG)
[2020-01-24 21:41] LABS: Urine Bacteria <20 /HPF (NONE SEEN); Urine Culture Reflex Order NOT NEEDED; Urine Mucus 1+ /HPF (NONE SEEN); Urine RBC <5 /HPF (NONE SEEN)
[2020-01-24] MEDS ORDERED: NA CHLORIDE 0.9% 1,000 ML ONE (22:05)
[2020-01-24 22:39] LABS: Absolute Lymphocytes (CBC) 0.7 K/uL (0.7-4.9); Basophils % 1.1 % (0-1.3); Hematocrit 39.3 % (39.6-49.0); Lymphocytes % 14.9 % (15.3-44.8); MPV 8.9 fL (7.6-11.3); RBC Red Blood Cell Count 4.44 M/uL (4.33-5.43)
[2020-01-24 22:46] LABS: Potassium 3.5 mmol/L (3.5-5.1)
--- NOTE | 2020-01-24 23:11 | EDPHYS ---
Physician Documentation [facility] Name: Russell Salvador Jr Age: 64 yrs Sex: Male : 1955 Arrival Date: 01/24/2020 Time: 19:25 Bed 14 Private MD: ED Physician Fede Jorgensen HPI: 01/23 23:36 This 64 yrs old Male presents to ER via Ambulatory with complaints of Urinary kb Problem. 23:37 The patient presents with urinary symptoms, retention. Onset: The symptoms/episode kb began/occurred 6 day(s) ago, and became worse today. Modifying factors: The symptoms are alleviated by nothing, the symptoms are aggravated by nothing. Associated signs and symptoms: The patient has no apparent associated signs or symptoms. Severity of symptoms: At their worst the symptoms were moderate, in the emergency department the symptoms are unchanged. The patient has not experienced similar symptoms in the past. The patient has not recently seen a physician. 23:37 Pt reports he has had diarrhea for 7 days and was prescribed Bactrim by his PCP azam yesterday. He has been having trouble urinating since it started, but today has been the worst. States he feels like his bladder is completely full.. Historical: - Allergies: 19:48 HUBER INHIBITORS; aa5 - PMHx: 19:48 CVA; Hyperlipidemia; Hypertension; aa5 - PSHx: 19:48 Appendectomy; aa5 - Immunization history:: Flu vaccine is up to date. - Social history:: Smoking status: Patient denies any tobacco usage or history of. ROS: 23:35 Constitutional: Negative for fever, chills, and weight loss, Cardiovascular: Negative kb for chest pain, palpitations, and edema, Respiratory: Negative for shortness of breath, cough, wheezing, and pleuritic chest pain, Back: Negative for injury and pain, MS/Extremity: Negative for injury and deformity, Skin: Negative for injury, rash, and discoloration, Neuro: Negative for headache, weakness, numbness, tingling, and seizure. 23:35 Abdomen/GI: Positive for diarrhea, Negative for abdominal pain, nausea and vomiting. 23:35 : Positive for urine retention. Exam: 23:35 Constitutional: This is a well developed, well nourished patient who is awake, alert, kb and in no acute distress. Head/Face: Normocephalic, atraumatic. Chest/axilla: Normal chest wall appearance and motion. Nontender with no deformity. No lesions are appreciated. Cardiovascular: Regular rate and rhythm with a normal S1 and S2. No gallops, murmurs, or rubs. Normal PMI, no JVD. No pulse deficits. Respiratory: Lungs have equal breath sounds bilaterally, clear to auscultation and percussion. No rales, rhonchi or wheezes noted. No increased work of breathing, no retractions or nasal flaring. Back: No spinal tenderness. No costovertebral tenderness. Full range of motion. Skin: Warm, dry with normal turgor. Normal color with no rashes, no lesions, and no evidence of cellulitis. MS/ Extremity: Pulses equal, no cyanosis. Neurovascular intact. Full, normal range of motion. Neuro: Awake and alert, GCS 15, oriented to person, place, time, and situation. Cranial nerves II-XII grossly intact. Motor strength 5/5 in all extremities. Sensory grossly intact. Cerebellar exam normal. Normal gait. 23:35 Abdomen/GI: Inspection: abdomen appears normal, Bowel sounds: normal, Palpation: soft, in all quadrants, moderate abdominal tenderness, in the suprapubic area. Vital Signs: 19:44 BP 146 / 82; Pulse 69; Resp 18 S; Temp 99.1(O); Pulse Ox 97% on R/A; Weight 96.16 kg aa5 (R); Height 6 ft. 6 in. (198.12 cm) (R); 22:30 BP 139 / 72; Pulse 58; Resp 16; Pulse Ox 99% on R/A; jb4 23:30 BP 137 / 67; Pulse 55; Resp 16; Pulse Ox 97% on R/A; jb4 19:44 Body Mass Index 24.50 (96.16 kg, 198.12 cm) aa5 MDM: 21:24 Patient medically screened. kb 23:32 Data reviewed: vital signs, nurses notes. Data interpreted: Pulse oximetry: on room air kb is 99 %. Interpretation: normal. Counseling: I had a detailed discussion with the patient and/or guardian regarding: the historical points, exam findings, and any diagnostic results supporting the discharge/admit diagnosis, lab results, radiology results, the need for outpatient follow up, a urologist, to return to the emergency department if symptoms worsen or persist or if there are any questions or concerns that arise at home. 01/23 20:28 Order name: Urine Microscopic Only; Complete Time: 21:41 kb 01/23 20:29 Order name: Urine Dipstick--Ancillary (enter results); Complete Time: 20:56 mt 01/23 21:34 Order name: CBC with Diff; Complete Time: 23:30 kb 01/23 21:34 Order name: Basic Metabolic Panel; Complete Time: 22:50 kb 01/23 20:00 Order name: Urine Dipstick-Ancillary (obtain specimen); Complete Time: 20:32 kb 01/23 21:17 Order name: CT Stone Protocol kb 01/23 21:34 Order name: Bladder Scanner; Complete Time: 22:50 kb 01/23 21:34 Order name: IV Start; Complete Time: 22:20 kb 01/23 22:43 Order name: Manual Differential; Complete Time: 23:30 EDMS 01/23 22:51 Order name: Jones; Complete Time: 22:51 jb4 Administered Medications: 22:15 Drug: NS 0.9% 1000 ml Route: IV; Rate: 1000 ml; Site: left antecubital; jb4 23:50 Follow up: Response: No adverse reaction; IV Status: Order to discontinue infusion; IV jb4 Intake: 500ml 23:27 Drug: [place] (7.5 mg-325 mg) 1 tabs Route: PO; ea 23:55 Follow up: Response: No adverse reaction; Pain is decreased; RASS: Alert and Calm (0) jb4 Disposition: 01/24 02:11 Co-signature as Attending Physician, Fede Jorgensen MD. rn Disposition: 01/24/20 23:10 Discharged to Home. Impression: Diarrhea, unspecified, Retention of urine, Enlarged prostate. - Condition is Stable. - Discharge Instructions: Food Choices to Help Relieve Diarrhea, Adult, Acute Urinary Retention, Male, Hbqx-if-Jwct, Diarrhea, Adult, Tzjd-[id number]-Eofq, Jones Catheter Care, Adult, Xtcc-xa-Othx. - Medication Reconciliation Form, Thank You Letter, Antibiotic Education, Prescription Opioid Use form. - Follow up: Emergency Department; When: As needed; Reason: Worsening of condition. Follow up: Private Physician; When: 2 - 3 days; Reason: Recheck today's complaints, Continuance of care, Re-evaluation by your physician. Follow up: Gumaro Franks MD; When: 2 - 3 days; Reason: Recheck today's complaints. Signatures: Dispatcher [employer] EDMS Thalia Valadez, METEOROLOGY FACULTY MEMBER-C METEOROLOGY FACULTY MEMBER-Ckb Fede Jorgensen MD MD rn Calderon, Audri, RN RN aa5 Harvinder Bradley RN RN jb4 Ella Otero RN RN ea Corrections: (The following items were deleted from the chart) 01/23 23:13 23:10 01/24/2020 23:10 Discharged to Home. Impression: Diarrhea, unspecified; Retention kb of urine. Condition is Stable. Forms are Medication Reconciliation Form, Thank You Letter, Antibiotic Education, Prescription Opioid Use. Follow up: Emergency Department; When: As needed; Reason: Worsening of condition. Follow up: Private Physician; When: 2 - 3 days; Reason: Recheck today's complaints, Continuance of care, Re-evaluation by your physician. kb 23:33 23:13 01/24/2020 23:10 Discharged to Home. Impression: Diarrhea, unspecified; Retention kb of urine; Enlarged prostate. Condition is Stable. Discharge Instructions: Food Choices to Help Relieve Diarrhea, Adult, Diarrhea, Adult, Jdpa-yg-Umhr, Jones Catheter Care, Adult, Xbvw-ti-Snrk, Acute Urinary Retention, Male, Ocnx-qx-Mqbq. Forms are Medication Reconciliation Form, Thank You Letter, Antibiotic Education, Prescription Opioid Use. Follow up: Emergency Department; When: As needed; Reason: Worsening of condition. Follow up: Private Physician; When: 2 - 3 days; Reason: Recheck today's complaints, Continuance of care, Re-evaluation by your physician. kb 23:56 23:33 01/24/2020 23:10 Discharged to Home. Impression: Diarrhea, unspecified; Retention jb4 of urine; Enlarged prostate. Condition is Stable. Discharge Instructions: Food Choices to Help Relieve Diarrhea, Adult, Diarrhea, Adult, Yeyq-pb-Pbsb, Jones Catheter Care, Adult, Wrlf-fl-Rrst, Acute Urinary Retention, Male, Qzqb-ht-Jyaa. Forms are Medication Reconciliation Form, Thank You Letter, Antibiotic Education, Prescription Opioid Use. Follow up: Emergency Department; When: As needed; Reason: Worsening of condition. Follow up: Private Physician; When: 2 - 3 days; Reason: Recheck today's complaints, Continuance of care, Re-evaluation by your physician. Follow up: Gumaro Franks; When: 2 - 3 days; Reason: Recheck today's complaints. kb
--- NOTE | 2020-01-24 23:11 | ER ---
Nurse's Notes [facility] Name: Russell Salvador Jr Age: 64 yrs Sex: Male : 1955 Arrival Date: 01/24/2020 Time: 19:25 Bed 14 Private MD: Diagnosis: Diarrhea, unspecified;Retention of urine;Enlarged prostate Presentation: 01/23 19:44 Chief complaint: Patient states: "I have been having diarrhea since and Dr. eldon Rangel is treating me with some antibiotics but the reason I am here is because my bladder hurts and my pee johansen". Pt states "I haven't been able to pee since 2pm today and my urine strain has been very weak over the last 2 days". Coronavirus screen: Client denies travel out of the [place] in the last 14 days. The client reports previous COVID testing was negative. Date of collection: January 16, 2020. Ebola Screen: Patient negative for fever greater than or equal to 101.5 degrees Fahrenheit, and additional compatible Ebola Virus Disease symptoms. Initial Sepsis Screen: Does the patient meet any 2 criteria? No. Patient's initial sepsis screen is negative. Does the patient have a suspected source of infection? No. Patient's initial sepsis screen is negative. Risk Assessment: Do you want to hurt yourself or someone else? Patient reports no desire to harm self or others. Onset of symptoms was January 2020. 19:44 Method Of Arrival: Ambulatory aa5 19:44 Acuity: ANETTE 3 aa5 Historical: - Allergies: 19:48 HUBER INHIBITORS; aa5 - PMHx: 19:48 CVA; Hyperlipidemia; Hypertension; aa5 - PSHx: 19:48 Appendectomy; aa5 - Immunization history:: Flu vaccine is up to date. - Social history:: Smoking status: Patient denies any tobacco usage or history of. Screenin:30 Abuse screen: Denies threats or abuse. Nutritional screening: No deficits noted. jb4 Tuberculosis screening: No symptoms or risk factors identified. Fall Risk None identified. Assessment: 21:30 General: Appears in no apparent distress. uncomfortable, Behavior is calm, cooperative, jb4 appropriate for age. Pain: Complains of pain in suprapubic area Pain does not radiate. Pain currently is 7 out of 10 on a pain scale. Quality of pain is described as throbbing. Neuro: Level of Consciousness is awake, alert, obeys commands, Oriented to person, place, time, situation. Cardiovascular: Respiratory: Airway is patent Respiratory effort is even, unlabored, Respiratory pattern is regular, symmetrical. GI: No signs and/or symptoms were reported involving the gastrointestinal system. : No signs and/or symptoms were reported regarding the genitourinary system. EENT: No signs and/or symptoms were reported regarding the EENT system. Derm: Skin is intact, Skin is pink, warm \\T\\ dry. Musculoskeletal: Circulation, motion, and sensation intact. Range of motion:. 22:30 Reassessment: Patient appears in no apparent distress at this time. Patient and/or jb4 family updated on plan of care and expected duration. Pain level reassessed. Patient is alert, oriented x 3, equal unlabored respirations, skin warm/dry/pink. 23:54 Reassessment: Patient appears in no apparent distress at this time. Patient and/or jb4 family updated on plan of care and expected duration. Pain level reassessed. Patient is alert, oriented x 3, equal unlabored respirations, skin warm/dry/pink. Vital Signs: 19:44 BP 146 / 82; Pulse 69; Resp 18 S; Temp 99.1(O); Pulse Ox 97% on R/A; Weight 96.16 kg aa5 (R); Height 6 ft. 6 in. (198.12 cm) (R); 22:30 BP 139 / 72; Pulse 58; Resp 16; Pulse Ox 99% on R/A; jb4 23:30 BP 137 / 67; Pulse 55; Resp 16; Pulse Ox 97% on R/A; jb4 19:44 Body Mass Index 24.50 (96.16 kg, 198.12 cm) aa5 ED Course: 19:25 Patient arrived in ED. cl3 19:44 Arm band placed on. aa5 19:47 Triage completed. aa5 20:00 Thalia Valadez FNP-C [facility]. kb 20:00 Fede Jorgensen MD is Attending Physician. kb 21:26 Harvinder Bradley, MARI is Primary Nurse. jb4 21:30 Patient has correct armband on for positive identification. Bed in low position. Call jb4 light in reach. Side rails up X 1. Pulse ox on. NIBP on. 22:06 CT Stone Protocol In Process Unspecified. EDMS 22:20 CBC with Diff Sent. jb5 22:20 Basic Metabolic Panel Sent. jb5 22:21 Inserted saline lock: 22 gauge in left antecubital area, using aseptic technique. Blood jb5 collected. 23:19 Chow cath inserted, using sterile technique, 18 Fr., by me, balloon inflated, to jb5 gravity drainage, clamped. urine specimen collected. other 1400 ml of urine collected in chow bag. 23:33 Gumaro Franks MD is Referral Physician. kb 23:55 No provider procedures requiring assistance completed. IV discontinued, intact, jb4 bleeding controlled, No redness/swelling at site. Pressure dressing applied. Administered Medications: 22:15 Drug: NS 0.9% 1000 ml Route: IV; Rate: 1000 ml; Site: left antecubital; jb4 23:50 Follow up: Response: No adverse reaction; IV Status: Order to discontinue infusion; IV jb4 Intake: 500ml 23:27 Drug: [place] (7.5 mg-325 mg) 1 tabs Route: PO; ea 23:55 Follow up: Response: No adverse reaction; Pain is decreased; RASS: Alert and Calm (0) jb4 Intake: 23:50 IV: 500ml; Total: 500ml. jb4 Outcome: 23:10 Discharge ordered by . kb 23:55 Discharged to home ambulatory. jb4 23:55 Condition: stable 23:55 Discharge instructions given to patient, Instructed on discharge instructions, follow up and referral plans. Demonstrated understanding of instructions, follow-up care. 23:56 Patient left the ED. jb4 Signatures: Dispatcher [employer] EDMS Thalia Valadez, CARGO INSPECTOR-C CARGO INSPECTOR-Vicki Tay, RN RN aa5 Harvinder Bradley, RN RN jb4 Moraima Dominique jb5 Ella Otero, Sirisha Borja RN, ea cl3 Corrections: (The following items were deleted from the chart) 19:47 19:47 Arm band placed on aa5 aa5 01/24 07:37 1111 23:00 Response: No adverse reaction; IV Status: Completed infusion; IV Intake: jb4 1000ml jb4
[2020-01-24 23:29] LABS: Blood Morphology Comment NOT SEEN (NOT SEEN); Platelet Estimate ADEQ
[2020-01-24] MEDS ORDERED: HYDROCODONE/APAP 7.5/325 MG TAB ONE (23:33)
[2020-01-25 00:35] VITALS: TEMP 99.1
[2020-01-25 00:38] VITALS: BP 137/67; O2SAT 97
--- NOTE | 2020-01-25 14:23 | RAD REPORT ---
EXAM DESCRIPTION: CT ABDOMEN AND PELVIS WITHOUT CONTRAST CLINICAL HISTORY: Trouble urinating COMPARISON: 12/23/2018 TECHNIQUE: CT of the abdomen and pelvis without IV contrast. Evaluation of the solid organs and vasc ulature is suboptimal due to lack of IV contrast. FINDINGS: Lung Bases: Linear opacities in the lung bases likely represents scarring or discoid atele ctasis. Left basilar calcified granulomas. Bones: Degenerative endplate spondylosis and facet arthropathy of the spine. Moderate degenerative di sc height narrowing at L5/S1. Abdomen: Liver: The liver has normal size and density. Gallbladder: No calcified gallstones. Spleen, Pancreas, and Adrenal Glands: The spleen, pancreas, and adrenal glands are unremarkable. Kidneys: The kidneys have normal size without evidence of hydronephrosis. No obstructing ureteral lucia culi. Punctate bilateral nonobstructing right nephrolithiasis. Small left renal cyst. Vasculature: Aortoiliac atherosclerosis. IVC is unremarkable. Stomach: The stomach and duodenum have normal course. Other: No free intraperitoneal air. No free fluid or lymphadenopathy. Pelvis: Bladder: Urinary bladder is unremarkable. Bowel: No dilated loops of large or small bowel. Wall thickening and inflammatory change of the rec aurora and distal sigmoid colon. Appendix: Prior appendectomy. Pelvis: Enlarged prostate. IMPRESSION: 1. Enlarged prostate. 2. Mild wall thickening of the rectum and sigmoid colon. These findings could be seen with nonspecifi c proctocolitis. Continued follow-up after acute illness to exclude other causes of bowel wall thicke arsh. Correlation for appropriate colorectal cancer screening history is also recommended. 3. Punctate nonobstructing right nephrolithiasis. This exam was performed according to our departmental dose-optimization program, which includes autom ated exposure control, adjustment of the mA and/or kV according to patient size and/or use of iterati ve reconstruction technique. Electronically signed by: Lawson Khan 01/24/2020 10:29 PM MATCHBOOK ASSEMBLER Due to temporary technical issues with the PACS/Fluency reporting system, reports are being signed by the in house radiologists without review as a courtesy to insure prompt reporting. The interpreting radiologist is fully responsible for the content of the report.
== END 2020-01-24 23:56 | disposition home or self-care (01) ==
LOC: ER 19:25
DX: N40.0 Benign prostatic hyperplasia without lower urinary tract symptoms (principal); R19.7 Diarrhea, unspecified; I10 Essential (primary) hypertension; Z88.8 Allergy status to other drugs, medicaments and biological substances
CPT/HCPCS: 96361; 85025; 80048; 36415; 76377; 74176; 51702; 96360; 99284; J7030; 81003; 81015

== ENCOUNTER 2020-01-26 23:31 | Emergency (ER) | payer OTHER ==
--- OUTSIDE RECORDS SUMMARY | 2020-01-26 23:33 | XMS REPORT | Clinical Summary ---
:1955 Author Organization [facility] Address [address] [place] [address] Care Team Providers Name Role Phone MD [...] COLONOSCOPY 10/22/2026 10/22/2016 Results Not on fileafter 01/25/2019 Insurance Payer Benefit Plan / Subscriber ID Effective Dates Phone Addre ss Type Group [employer] - MGD [employer] HMO POS [id number] 2009-Present HMO/POS CARE QPOS [id number] (Work) Advance Directives For more information, please contact: [phone] Code Status Date Activated Date Inactivated Comments Full Code 11/26/2017 8:29 PM 11/27/2017 7:41 PM This code status was determined by: Patient Full Code 05/27/2017 8:01 AM 05/28/2017 5:04 PM This code status was determined by: Patient Full Code 05/27/2017 7:48 AM 05/27/2017 7:51 AM This code status was determined by: Patient
--- OUTSIDE RECORDS SUMMARY | 2020-01-26 23:34 | XMS REPORT | Continuity of Care Document ---
:1955 Author Organization [facility] t Address [address] [place] [address] Care Team Providers Name Role Phone Claire [...] on 11-26 [facility] [place] High High Disease Active [facility] triglycer[facility] 11-26 [facility]da kes - [facility] 00:00: Medical 00 [place] Neuropathy Neuropathy Disease Active [facility] 11-26 [facility] 00 [place] Acute Acute Disease Active [facility] ischemic ischemic 05-27 [facility] - stroke stroke 00:00: Medical 00 [place] Stroke Stroke Disease Active [facility] 05[facility] 00 [place] Allergies, Adverse Reactions, Alerts Allergy Allergy Status Severity Reaction(s) Onset Inactive Treating Comm ents Source Name Type Date Date Clinician Lisinopr Drug Active Other ([facility] 00 [place] Social History Social Habit Start Date Stop Date Quantity Comments Source Sex Assigned At [facility] Alcohol intake 2017-11-26 2017-11-[address] [facility] - 00:[facility]:00 00:00:00 non-drinker of Medical Ce nter alcohol (finding) Smoking Status Start Date Stop Date Source Never sm[facility] Medications Ordered Filled Start Stop Current Ordering Indication Dosage Frequency Signature Comments Components Source Medication Medication Date Date Medication? Clinician (SIG) Name Name valsartan Yes 80mg QD Take 80 mg [facility] [...] C enter of colon (procedure) [code = 173317392] Future Scheduled 2020-11-[address] [facility] 00:[facility]00 (procedure) [code = [facility] 54102830] Future Scheduled 2019-11-[address] [facility] 00:00:00 (#1) [code = [facility] INFLUENZA VACCINE (#1)] Encounters Start End Encounter Admission Attending Care Care Encounter Source Date/Time Date/Time Type Type Clinicians Facility Department ID 2020-01-22 2020-01-22 Laboratory Lab, [facility] [id number] 15:33:42 15:53:42 Only [facility] [id number] [place] [id number] Professio [phone] [place] [address] [address] Results Test Description Test [...] = Normal UPEP with no proteinuria. 2604) [id number] (BEAKER) (test Dariana Francois MD (electronic code = 6242) signature) PROTEIN ELECTROPHORESIS, [id number] 14:18:00 Test Item Value Reference Range Interpretation [...] electrophoretic (BEAKER) (test code pattern. = 2615) [id number] Dariana Francois MD 9 (BEAKER) (test (electronic signature) code = 2616) PROTEIN TOTAL 6.5 gm/dL 6.0-8.3 SERUM, SPEP (BEAKER) (test code = 2660) ANTI-NUCLEAR ANTIBODY (OLENA)2017-11-29 10:04:00 Test Item Value Reference Range Interpretation Comments ANTI-NUCLEAR ANTIBODY (OLENA) (BEAKER) Negative Negative (test code = 418) Test performed by IFA method.Test performed by IFA method.[id number] 05:18:00 Test Item Value Reference Range Interpretation Comments RPR SCREEN (BEAKER) (test code = Nonreactive Nonreactive 420) MR, BRAIN, WITHOUT [id number] 13:18:00FINAL REPORT MRI brain Comparison: Head CT [...] Lott Verified Date/Time: 11/27/2017 13:18:28 Reading Location: [facility] Neuro Reading Room Electronically signed by: CANELO LOTT M.D. on11/27/2017 01:18 PM HEMOGLOBIN [id number] 08:57:00 Test Item Value Reference Range Interpretation Comments HEMOGLOBIN A1C (BEAKER) (test code = 5.4 % 4.3-6.1 368) VITAMIN B12 AND [id number] 08:48:00 Test Item Value Reference Range Interpretation Comments VITAMIN B12 (BEAKER) (test code = 577 pg/mL 213-816 774) FOLATE (BEAKER) (test code = 362) 15.2 ng/mL >=7.0 [id number] 06:49:00 Test Item Value Reference Range Interpretation Comments PHOSPHORUS (BEAKER) (test code = 3.6 mg/dL 2.3-4.7 604) [id number] 06:49:00 Test Item Value Reference Range Interpretation Comments MAGNESIUM (BEAKER) (test code = 2.2 mg/dL 1.6-2.6 627) BASIC METABOLIC [id number] 06:49:00 Test Item Value Reference Range Interpretation [...] NOT APPLICABLE FOR DIALYSIS PATIEN TS. LIPID [id number] 06:49:00 Test Item Value Reference Range Interpretation [...] Borderline 130-159 High 160-189 Very High >=190CALCIUM, [id number] 06:23:00 Test Item Value Reference Range Interpretation Comments CALCIUM IONIZED (BEAKER) (test 1.16 mmol/L 1.12-1.27 code = 698) PH, BLOOD (BEAKER) (test code = 7.37 1810) CBC W/PLT COUNT & AUTO [id number] 06:17:00 Test Item Value Reference Range Interpretation [...] code = 2801) MR, MRA, BRAIN, WITHOUT [id number] 12:18:00Reason for exam:- >StrokeWhat is the patient's sedation requirement?->No SedationFINAL REPORT MRA Head CLINICAL HISTORY: Stroke TECHNIQUE: MRA of the head utilizing 3-D ncgq-gt-klpijt technique, with 3-D reconstructions. COMPARISON: None FINDINGS: There is noevidence of intracranial aneurysm, focal stenosis, or major branch vessel occlusion. There are bilateral posterior communicating arteries. IMPRESSION: No evidence for a major [place] of [place] proximal branch vessel occlusion. MRA Neck CLINICAL HISTORY: Stroke TECHNIQUE: MRA of the neck utilizing 2-D and 3-D dexd-uc-qukurn technique, with 3-D reconstructions. COMPARISON: None FINDINGS: The carotidarteries in the neck are patent including their bifurcations. There is antegrade flow in the vertebral arteries in the neck. IMPRESSION: No evidence of hemodynamically significant stenosis in the cervical carotid or vertebral arteries by NASCET criteria. Signed: America King Verified Date/Time: 05/28/2017 12:18:08 Reading Location: [address] Neuro Reading Room MR, MRA, NECK, WITHOUT IV [id number] 12:18:00FINAL REPORT MRA Head CLINICAL HISTORY: Stroke TECHNIQUE: MRA of the head utilizing 3-D jyuu-dl-kpqpvm technique, with 3-D reconstructions. COMPARISON: None FINDINGS: There is noevidence of intracranial aneurysm, focal stenosis, or major branch vessel occlusion. There are bila teral posterior communicating arteries. IMPRESSION: No evidence for a major kw[place] of [place] proximal branch vessel occlusion. MRA Neck CLINICAL HISTORY: Stroke TECHNIQUE: MRA of the neck utilizing 2-D and 3-D vbix-iq-sxycfy technique, with 3-D reconstructions. COMPARISON: None FINDINGS: The carotid arteries in the neck are patent including their bifurcations. There is antegrade flow in the vertebral arteries in the neck. IMPRESSION: No evidence of hemodynamically significant stenosis in the cervical carotid or vertebral arteries by NASCET criteria. Signed: America King Verified Date/Time: 05/28/2017 12:18:08 Reading Location: [facility] Reading Room MR, BRAIN, WITHOUT [id number] 11:48:00Reason for exam:->Strokepost-tpa scanWhat is the patient's [...] King MDReport VerifiedDate/Time: 05/28/2017 11:48:29 Reading Location: [facility] C013[facility] Neuro Reading Room [id number] 09:59:00 Test Item Value Reference Range Interpretation Comments RPR SCREEN (BEAKER) (test code = Nonreactive Nonreactive 420) CT, BRAIN, WITHOUT [id number] 07:58:00FINAL REPORT CT Head without contrast CLINICAL [...] MDReport Verified Date/Time: 05/28/2017 07:58:27 Reading Location: [facility] C013[facility] Neuro Reading Room [id number] 05:58:00 Test Item Value Reference Range Interpretation Comments PHOSPHORUS (BEAKER) (test code = 3.0 mg/dL 2.3-4.7 604) [id number] 05:58:00 Test Item Value Reference Range Interpretation Comments MAGNESIUM (BEAKER) (test code = 2.1 mg/dL 1.6-2.6 627) FastingBASIC METABOLIC [id number] 05:58:00 Test Item Value Reference Range Interpretation [...] NOT APPLICABLE FOR DIALYSIS PATIEN TS. FastingLIPID [id number] 05:58:00 Test Item Value Reference Range Interpretation [...] High >=190 FastingCBC W/PLT COUNT & AUTO [id number] 05:32:00 Test Item Value Reference Range Interpretation [...] PERCENT (BEAKER) (test code = 2801) HEMOGLOBIN [id number] 13:39:00 Test Item Value Reference Range Interpretation Comments HEMOGLOBIN A1C (BEAKER) (test code = 5.4 % 4.3-6.1 368) TSH/FREE T4 IF [id number] 09:59:00 Test Item Value Reference Range Interpretation Comments THYROID STIMULATING HORMONE 0.97 uIU/mL 0.35-4.94 (BEAKER) (test code = 772) VITAMIN B12 AND [id number] 09:59:00 Test Item Value Reference Range Interpretation Comments VITAMIN B12 (BEAKER) (test code = 516 pg/mL 213-816 774) FOLATE (BEAKER) (test code = 362) 15.4 ng/mL >=7.0 TROPONIN [id number] 09:34:00 Test Item Value Reference Range Interpretation [...] acute neurological disease, and persistent tachyarrhythmia.BASIC METABOLIC [id number] 09:29:00 Test Item Value Reference Range Interpretation [...] NOT APPLICABLE FOR DIALYSIS PATIEN TS. LIPID [id number] 09:29:00 Test Item Value Reference Range Interpretation [...] 130-159 High 160-189 Very High >=190HEPATIC FUNCTION [id number] 09:29:00 Test Item Value Reference Range Interpretation [...] 347) hemolyzed CBC W/PLT COUNT & AUTO [id number] 09:05:00 Test Item Value Reference Range Interpretation [...] % 0-1 PERCENT (BEAKER) (test code = 2803)
--- NOTE | 2020-01-27 00:21 | ER ---
Nurse's Notes [facility] Name: Russell Salvador Jr Age: 64 yrs Sex: Male : 1955 Arrival Date: 01/26/2020 Time: 23:34 Bed 19 Private MD: Diagnosis: Jones Catheter Recheck Presentation: 01/25 23:36 Chief complaint: Patient states: Jones cath inserted 01/24/2020, reports having issues sg with drainage from the bladder into the collection bag today. Coronavirus screen: Client denies travel out of the [place] in the last 14 days. At this time, the client does not indicate any symptoms associated with coronavirus-19. Ebola Screen: Patient negative for fever greater than or equal to 101.5 degrees Fahrenheit, and additional compatible Ebola Virus Disease symptoms Patient denies exposure to infectious person. Patient denies travel to an Ebola-affected area in the 21 days before illness onset. No symptoms or risks identified at this time. Initial Sepsis Screen: Does the patient meet any 2 criteria? No. Patient's initial sepsis screen is negative. Does the patient have a suspected source of infection? No. Patient's initial sepsis screen is negative. Risk Assessment: Do you want to hurt yourself or someone else? Patient reports no desire to harm self or others. Onset of symptoms was January 26, 2020. Care prior to arrival: None. Transition of care: patient was not received from another setting of care. 23:36 Acuity: ANETTE 4 sg 23:36 Method Of Arrival: Ambulatory sg Triage Assessment: 23:45 General: Appears comfortable, Behavior is calm, cooperative. Pain: Complains of pain in rv right lower quadrant and left lower quadrant. Historical: - Allergies: 23:37 HUBER INHIBITORS; sg - PMHx: 23:37 CVA; Hyperlipidemia; Hypertension; sg - PSHx: 23:37 Appendectomy; sg - Immunization history:: Adult Immunizations up to date. - Social history:: Smoking status: Patient denies any tobacco usage or history of. Screenin:45 Abuse screen: Denies threats or abuse. Denies injuries from another. Nutritional rv screening: No deficits noted. Tuberculosis screening: No symptoms or risk factors identified. Fall Risk None identified. Assessment: 23:57 Reassessment: replaced with a new urine leg bag. rv Vital Signs: 23:45 BP 157 / 78; Pulse 66; Resp 16; Temp 98.9; Pulse Ox 97% ; Weight 95.25 kg; Height 6 ft. rv 6 in. (198.12 cm); Pain 8/10; 23:45 Body Mass Index 24.27 (95.25 kg, 198.12 cm) rv ED Course: 23:34 Patient arrived in ED. bp1 23:35 Armando Carlos MD is Attending Physician. [facility] 23:37 Triage completed. sg 23:37 Arm band placed on. sg 23:44 Julio Cesar Dunn, RN is Primary Nurse. rv 23:45 Patient has correct armband on for positive identification. Pulse ox on. NIBP on. rv 23:57 No provider procedures requiring assistance completed. Patient did not have IV access rv during this emergency room visit. Bladder irrigated via Jones with 50 ml normal saline returned clear fluid Patient tolerated well. 01/26 00:19 Chanda Patel MD is Referral Physician. [facility] Administered Medications: No medications were administered Outcome: 01/25 23:57 Discharged to home ambulatory. rv Condition: good Discharge instructions given to patient, Instructed on discharge instructions, follow up and referral plans. Demonstrated understanding of instructions, follow-up care. 01/26 00:20 Discharge ordered by . 7 00:22 Patient left the ED. rv Signatures: Robles Wiseman, RN RN Julio Cesar Dunn, MARI RN rv Niru Caba bp1 Armando Carlos MD MD mh7
--- NOTE | 2020-01-27 00:21 | EDPHYS ---
Physician Documentation [facility] Name: Russell Salvador Jr Age: 64 yrs Sex: Male : 1955 Arrival Date: 01/26/2020 Time: 23:34 Bed 19 Private MD: ED Physician Armando Carlos HPI: 01/25 23:44 This 64 yrs old Male presents to ER via Ambulatory with complaints of Chow mh7 Problem. 23:44 The patient presents with a Chow catheter problem, Not draining as much as it should. mh7 Onset: The symptoms/episode began/occurred today. Modifying factors: The symptoms are alleviated by nothing, the symptoms are aggravated by nothing. 23:46 Associated signs and symptoms: Pertinent negatives: abdominal pain, constipation, mh7 diarrhea, dysuria, fever, hematuria, nausea, vomiting. Severity of symptoms: At their worst the symptoms were mild, earlier today, in the emergency department the symptoms are unchanged. The patient has been recently seen at the [facility] Emergency Department, this week. Patient had Chow catheter placed here two days ago. He states that he does not think it is draining as much as it should be. He thinks it has drained less than a liter when he drank about two liters of fluid today. He denies any fever, abdominal pain, nausea, vomiting, or dysuria.. Historical: - Allergies: 23:37 HUBER INHIBITORS; sg - PMHx: 23:37 CVA; Hyperlipidemia; Hypertension; sg - PSHx: 23:37 Appendectomy; sg - Immunization history:: Adult Immunizations up to date. - Social history:: Smoking status: Patient denies any tobacco usage or history of. ROS: 23:46 Constitutional: Negative for fever, chills, and weight loss, Eyes: Negative for injury, mh7 pain, redness, and discharge, ENT: Negative for injury, pain, and discharge, Neck: Negative for injury, pain, and swelling, Cardiovascular: Negative for chest pain, palpitations, and edema, Respiratory: Negative for shortness of breath, cough, wheezing, and pleuritic chest pain, Abdomen/GI: Negative for abdominal pain, nausea, vomiting, diarrhea, and constipation, Back: Negative for injury and pain, MS/Extremity: Negative for injury and deformity, Skin: Negative for injury, rash, and discoloration, Neuro: Negative for headache, weakness, numbness, tingling, and seizure, Psych: Negative for depression, anxiety, suicide ideation, homicidal ideation, and hallucinations, Allergy/Immunology: Negative for hives, rash, and allergies, Endocrine: Negative for neck swelling, polydipsia, polyuria, polyphagia, and marked weight changes, Hematologic/Lymphatic: Negative for swollen nodes, abnormal bleeding, and unusual bruising. Exam: 23:46 Constitutional: This is a well developed, well nourished patient who is awake, alert, mh7 and in no acute distress. Head/Face: Normocephalic, atraumatic. Eyes: Pupils equal round and reactive to light, extra-ocular motions intact. Lids and lashes normal. Conjunctiva and sclera are non-icteric and not injected. Cornea within normal limits. Periorbital areas with no swelling, redness, or edema. Neck: Trachea midline, no thyromegaly or masses palpated, and no cervical lymphadenopathy. Supple, full range of motion without nuchal rigidity, or vertebral point tenderness. No Meningismus. Chest/axilla: Normal chest wall appearance and motion. Nontender with no deformity. No lesions are appreciated. Cardiovascular: Regular rate and rhythm with a normal S1 and S2. No gallops, murmurs, or rubs. Normal PMI, no JVD. No pulse deficits. Respiratory: Lungs have equal breath sounds bilaterally, clear to auscultation and percussion. No rales, rhonchi or wheezes noted. No increased work of breathing, no retractions or nasal flaring. Abdomen/GI: Soft, non-tender, with normal bowel sounds. No distension or tympany. No guarding or rebound. No evidence of tenderness throughout. Back: No spinal tenderness. No costovertebral tenderness. Full range of motion. Skin: Warm, dry with normal turgor. Normal color with no rashes, no lesions, and no evidence of cellulitis. MS/ Extremity: Pulses equal, no cyanosis. Neurovascular intact. Full, normal range of motion. Neuro: Awake and alert, GCS 15, oriented to person, place, time, and situation. Cranial nerves II-XII grossly intact. Motor strength 5/5 in all extremities. Sensory grossly intact. Cerebellar exam normal. Normal gait. Psych: Awake, alert, with orientation to person, place and time. Behavior, mood, and affect are within normal limits. 01/26 00:20 Male : Normal genitalia with no discharge or lesions. mh7 : a chow is noted. Vital Signs: 01/25 23:45 BP 157 / 78; Pulse 66; Resp 16; Temp 98.9; Pulse Ox 97% ; Weight 95.25 kg; Height 6 ft. rv 6 in. (198.12 cm); Pain 8/10; 23:45 Body Mass Index 24.27 (95.25 kg, 198.12 cm) rv MDM: 23:43 Patient medically screened. mh7 01/26 00:17 Differential diagnosis: Chow catheter problem, dehydration. Data reviewed: [facility] signs, nurses notes, old medical records. Data interpreted: Pulse oximetry: on room air is 97 %. Interpretation: normal. Counseling: I had a detailed discussion with the patient and/or guardian regarding: the historical points, exam findings, and any diagnostic results supporting the discharge/admit diagnosis, the need for outpatient follow up, a urologist, to return to the emergency department if symptoms worsen or persist or if there are any questions or concerns that arise at home. 06:13 Response to treatment: the patient's symptoms have resolved after treatment, the mh7 patient's blood pressure is in an acceptable range, mental status has returned to baseline, the patient no longer shows bradycardia, the patient is not short of breath, the patient is not tachycardic, the patient's pain is gone, the patient's temperature has normalized. ED course: Bladder scan showed 74 ml of urine. Chow Catheter flushed easily and drained appropriately.. Administered Medications: No medications were administered Disposition: 01/27/20 00:20 Discharged to Home. Impression: Chow Catheter Recheck. - Condition is Stable. - Discharge Instructions: Chow Catheter Care, Adult, Npit-ud-Gjgo. - Medication Reconciliation Form, Thank You Letter, Antibiotic Education, Prescription Opioid Use form. - Follow up: Private Physician; When: 1 - 2 days; Reason: Worsening of condition, Recheck today's complaints, Continuance of care, Re-evaluation by your physician. Follow up: Chanda Patel MD; When: 1 - 2 days; Reason: Worsening of condition, Recheck today's complaints. - Problem is an ongoing problem. - Symptoms have improved. Signatures: Robles Wiseman RN RN sg Julio Cesar Dunn RN RN rv Armando Carlos MD MD mh7 Corrections: (The following items were deleted from the chart) 00:22 00:20 01/27/2020 00:20 Discharged to Home. Impression: Chow Catheter Recheck. rv Condition is Stable. Forms are Medication Reconciliation Form, Thank You Letter, Antibiotic Education, Prescription Opioid Use. Follow up: Private Physician; When: 1 - 2 days; Reason: Worsening of condition, Recheck today's complaints, Continuance of care, Re-evaluation by your physician. Follow up: Chanda Patel; When: 1 - 2 days; Reason: Worsening of condition, Recheck today's complaints. Problem is an ongoing problem. Symptoms have improved. mh7
[2020-01-27 05:15] VITALS: BP 157/78; TEMP 98.9; O2SAT 97
== END 2020-01-27 00:22 | disposition home or self-care (01) ==
LOC: ER 23:31
DX: Z46.6 Encounter for fitting and adjustment of urinary device (principal)
CPT/HCPCS: 51700; 99284